=== PATIENT | female | born 1930 | race Caucasian/White ===

== ENCOUNTER 2017-01-06 10:43 | Inpatient (IN) | payer OTHER ==
[2017-01-06] VITALS (35 sets, daily range): BP systolic 76–145; BP diastolic 45–87; PULSE 96–178; TEMP 36.2–37.1; O2SAT 80–100; Ht 162.6 cm; Wt 63.4 kg
[~2017-01-06] VITALS: Ht 162.6 cm; Wt 63.4 kg
[2017-01-06] MEDS ORDERED: SODIUM CHLORIDE 0.9% 1000ML 1,000 ML IV STA (11:00)
[2017-01-06] MEDS ORDERED: CEFTRIAXONE SOD INJ 1 GM ADDVIAL IV STA (11:00)
--- NOTE | 2017-01-06 11:24 | DIAGNOSTIC IMAGING REPORT ---
CHEST ONE VIEW PORTABLE CLINICAL HISTORY: Evaluate Fever/Sepsis dyspnea COMPARISON STUDY: No previous studies for comparison. FINDINGS: Moderate cardiac megaly. Prior median sternotomy. Parenchymal infiltrate left base. Lungs otherwise appear clear. Central catheters. Vena cava. IMPRESSION: Infiltrate left base. Electronically signed by: Quentin Perera M.D. 01/06/2017 11:22 AM Dictated Date/Time: 01/06/2017 11:21 AM
[2017-01-06 11:47] LABS: HEMATOCRIT 25.1 % (37-47); MEAN CORPUSCULAR HEMOGLOBIN 33.3 pg (25-34); MEAN CORPUSCULAR HGB CONC 32.7 g/dl (32-36); MEAN PLATELET VOLUME 9.6 fL (7.4-10.4); PLATELET COUNT 276 K/uL (130-400); RED BLOOD COUNT 2.46 M/uL (4.2-5.4); WHITE BLOOD COUNT 18.57 K/uL (4.8-10.8)
[2017-01-06 11:58] LABS: INR 1.2 (0.9-1.1); PARTIAL THROMBOPLASTIN RATIO 1.4; PROTHROMBIN TIME (PATIENT) 12.7 SECONDS (9.0-12.0)
[2017-01-06 12:04] LABS: BUN/CREATININE RATIO 28.1 (10-20); CALCIUM 6.7 mg/dl (8.5-10.1); CREATININE 1.1 mg/dl (0.60-1.20); POTASSIUM 4.9 mmol/L (3.5-5.1)
[2017-01-06 12:09] LABS: ARTERIAL BLD GAS O2 SATURATION 92.9 % (90-95); ARTERIAL BLOOD GAS BASE EXCESS -2.8 mEq/L (-9-1.8); ARTERIAL BLOOD GAS HCO3 21 mmol/L (19-24); ARTERIAL BLOOD GAS PO2 81 mm/Hg (80-95); ARTERIAL BLOOD GAS pH 7.44 (7.35-7.45)
[2017-01-06 12:12] LABS: ALLEN TEST ROOM AIR (POS); O2 ADMINISTRATION POS
[2017-01-06 12:14] LABS: BASO % 0.2 %; BASO ABS # 0.03 K/uL (0-0.2); CKMB/CK RATIO 5.2 (0-3.0); COMPLETE YES; ECHINOCYTES 1+; EOS % 0.1 %; LYMPH % 5.1 %; LYMPH ABS # 0.94 K/uL (1.2-3.4); MONO % 4.2 %; NEUT % 84.4 %; THYROID STIMULATING HORMONE 5.77 uIu/ml (0.300-4.500); TOXIC GRANULATION 1+
[2017-01-06 12:31] LABS: MANUAL MICROSCOPIC REQUIRED? YES; URINE APPEARANCE SL CLOUDY (CLEAR); URINE COLOR YELLOW; URINE NITRITE NEG (NEG); URINE SPECIFIC GRAVITY >= 1.030 (1.000-1.030); UROBILINOGEN NEG (NEG)
--- NOTE | 2017-01-06 12:32 | DIAGNOSTIC IMAGING REPORT ---
CT SCAN OF THE BRAIN WITHOUT IV CONTRAST CLINICAL HISTORY: Generalized weakness. Unresponsive. COMPARISON STUDY: No priors. TECHNIQUE: Unenhanced axial CT scan of the brain is performed from the vertex to the skull base. CT DOSE: 823.94 mGycm FINDINGS: Brain parenchyma: There are age-related involutional changes noting moderate patchy subcortical and periventricular microangiopathic change. There is no hemorrhage, mass effect, or evidence of acute territorial ischemia by CT criteria. A chronic lacunar infarct is identified in the right thalamus. Davison-white matter is preserved. No extra-axial fluid collection is seen. Ventricles, sulci, cisterns: Prominent secondary to involutional change. Intracranial vasculature: There is an atherosclerotic calcification of the cavernous carotid and vertebral arteries. Calvarium: Unremarkable. Sinuses and mastoids: The visualized paranasal sinuses are clear. The mastoid air cells are well pneumatized. Orbits: The bony orbits are grossly intact. There are bilateral ocular lens implants. IMPRESSION: Senescent changes as above with no hemorrhage, mass effect, or evidence of acute territorial ischemia by CT criteria. Electronically signed by: Dany Llanos M.D. 01/06/2017 12:30 PM Dictated Date/Time: 01/06/2017 12:28 PM
[2017-01-06 12:37] LABS: REVIEW REQ? NO; URINE BILIRUBIN NEG (NEG)
[2017-01-06 12:46] LABS: URINE AMORPHOUS SEDIMENT PRESENT (NONE PRSENT)
[2017-01-06 12:47] LABS: URINE BACTERIA NEG (NEG); URINE RBC 0-4 /hpf (0-4)
[2017-01-06] MEDS ORDERED: PIPERACILLIN/TAZOBACTAM 4.5 GM/100ML D5W IV STA (13:04)
[2017-01-06] MEDS ORDERED: SODIUM CHLORIDE 0.9% 1000ML 1,000 ML IV SCH (13:15)
--- NOTE | 2017-01-06 14:07 | EMERGENCY ROOM VISIT NOTE ---
History Report prepared by Jennyfer: Sammi Estrella Under the Supervision of: Dr. Morgan Treviño D.O. 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 She comes from [facility] by EMS. The staff at [facility] believed she was in cardiac arrest. The EMS determined that she was not. The nurse reports that she was tachycardic. Her blood pressure was initially 70. She was given fluids en route. She was at [facility] recently for an arm infection. She states that she is having SOB. She denies having any abdominal pain. 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 A total of 10 systems reviewed and were otherwise negative. Past Medical & Surgical Medical Problems: (1) Asthma (2) CAD (coronary artery disease) (3) CVA (cerebral vascular accident) (4) GERD (gastroesophageal reflux disease) (5) Heart failure (6) Hyperlipidemia (7) Hypothyroidism (8) Inflammatory bowel disease (9) Persistent atrial fibrillation (10) Type 2 diabetes mellitus Surgical Problems: (1) History of arthroplasty of right knee (2) History of cataract surgery (3) S/P CABG x 3 (4) S/P cholecystectomy (5) S/P hysterectomy Family History Non contributory secondary to age. Social History Housing Status: [facility] Current/Historical Medications Scheduled Bumetanide (Bumex), 1 MG PO QAM Cholecalciferol (Vitamin D3), 1 TAB PO DAILY Ciprofloxacin Hcl (Cipro), 500 MG PO Q12H Ciprofloxacin In D5w (Cipro I.v.-In D5w), 400 MG IV Q12 Cyanocobalamin (Vitamin B-12), 500 MCG PO QAM Dabigatran Etexilate Mesylate (Pradaxa), 150 MG PO BID Dexlansoprazole (Dexilant), 1 TAB PO QAM Dimethicone & Incontinent Enedelia (Comfort Clean/Comfort Marielena), 1 DOSE TOP TID Ferrous Sulfate (Ferrous Sulfate), 1 TAB PO BID Gabapentin (Neurontin), 300 MG PO QAM Levothyroxine Sodium (Synthroid), 88 MCG PO DAILYBB Magnesium Oxide (Mag-Ox), 400 MG PO TID Mesalamine (Mesalamine Dr), 1 TAB PO QAM Methylprednisolone (Methylprednisolone), 1 TAB PO QAM Metoprolol Succinate (Metoprolol Succinate ER), 1 TAB PO QAM Potassium Chloride Microencaps (Potassium Chloride Er), 1 TAB PO QAM Potassium Ext Rel (Klor-Con), 20 MEQ PO QAM Vancomycin HCl in Sodium Chlor (Vancomycin Hydrochloride/ 1-0.9 gm/250Ml-%), 1 GM IV DAILY Miscellaneous Medications Heparin Sodium (Porcine) Lock (Heparin Lock Flush), 1 DOSE FLUSH Sodium Chloride Flush (Normal Saline Flush), 20 ML FLUSH Allergies Coded Allergies: No Known Allergies (Unverified , 01/06/17) Physical Exam Vital Signs Date Time Temp Pulse Resp B/P Pulse Ox O2 Delivery O2 Flow Rate FiO2 01/06/17 14:09 126 26 117/67 94 Nasal Cannula 2.0 01/06/17 14:01 124 24 99/50 94 Nasal Cannula 2.0 01/06/17 13:47 130 24 99/46 94 Nasal Cannula 2.0 01/06/17 13:41 119 24 99/62 95 Nasal Cannula 01/06/17 13:16 135 26 104/57 97 Nasal Cannula 2.0 01/06/17 13:06 120 26 85/60 99 Nasal Cannula 2.0 01/06/17 12:59 116 20 109/69 99 Nasal Cannula 2.0 01/06/17 12:42 130 26 90/51 95 Nasal Cannula 2.0 01/06/17 12:06 123 26 94/49 98 Nasal Cannula 2.0 01/06/17 11:53 132 24 103/70 98 Nasal Cannula 2.0 01/06/17 11:52 98 Nasal Cannula 2.0 01/06/17 11:44 116 24 80/58 95 Room Air 01/06/17 11:34 132 24 76/54 95 01/06/17 11:22 123 26 96/53 95 Room Air 01/06/17 10:54 119 01/06/17 10:53 36.6 136 24 114/68 94 Room Air 01/06/17 10:53 94 Room Air Physical Exam CONSTITUTIONAL/VITAL SIGNS: Reviewed / noted above. GENERAL: Non-toxic in appearance. Right IJ triple lumen catheter in place. INTEGUMENTARY: Warm, dry, and pale. HEAD: Normocephalic. EYES: without scleral icterus or trauma. ENT/OROPHARYNX: clear and moist. LYMPHADENOPATHY/NECK: Is supple without lymphadenopathy or meningismus. RESPIRATORY: Lungs clear and equal. CARDIOVASCULAR: Regular rate and rhythm. GI/ABDOMEN: Soft and nontender. No organomegaly or pulsatile mass. No rebound or guarding. Normal bowel sounds. EXTREMITIES: Sutures in place on left elbow with some edema and ecchymosis. Old bruising noted. Peripheral edema noted. BACK: No CVA tenderness. NEUROLOGICAL: She responds to verbal stimulus and answers basic questions appropriately. Generalized weakness. No obvious focal deficit. PSYCHIATRIC: normal affect. MUSCULOSKELETAL: Normally developed with good muscle tone. Medical Decision & Procedures ER Provider Diagnostic Interpretation: X ray results and stated below per my interpretation and radiology interpretation. Radiology results as stated below per my review and radiologist interpretation: CHEST ONE VIEW PORTABLE CLINICAL HISTORY: Evaluate Fever/Sepsis dyspnea COMPARISON STUDY: No previous studies for comparison. FINDINGS: Moderate cardiac megaly. Prior median sternotomy. Parenchymal infiltrate left base. Lungs otherwise appear clear. Central catheters. Vena cava. IMPRESSION: Infiltrate left base. Electronically signed by: Quentin Perera M.D. 01/06/2017 11:22 AM Dictated Date/Time: 01/06/2017 11:[address] SCAN OF THE BRAIN WITHOUT IV CONTRAST CLINICAL HISTORY: Generalized weakness. Unresponsive. COMPARISON STUDY: No priors. TECHNIQUE: Unenhanced axial CT scan of the brain is performed from the vertex to the skull base. CT DOSE: 823.94 mGycm FINDINGS: Brain parenchyma: There are age-related involutional changes noting moderate patchy subcortical and periventricular microangiopathic change. There is no hemorrhage, mass effect, or evidence of acute territorial ischemia by CT criteria. A chronic lacunar infarct is identified in the right thalamus. Davison-white matter is preserved. No extra-axial fluid collection is seen. Ventricles, sulci, cisterns: Prominent secondary to involutional change. Intracranial vasculature: There is an atherosclerotic calcification of the cavernous carotid and vertebral arteries. Calvarium: Unremarkable. Sinuses and mastoids: The visualized paranasal sinuses are clear. The mastoid air cells are well pneumatized. Orbits: The bony orbits are grossly intact. There are bilateral ocular lens implants. IMPRESSION: Senescent changes as above with no hemorrhage, mass effect, or evidence of acute territorial ischemia by CT criteria. Electronically signed by: Dany Llanos M.D. 01/06/2017 12:30 PM Dictated Date/Time: 01/06/2017 12:28 PM Laboratory Results 01/06/17 11:30 Red Blood Count 2.46, Mean Corpuscular Volume 102.0, Mean Corpuscular Hemoglobin 33.3, Mean Corpuscular Hemoglobin Concent 32.7, Mean Platelet Volume 9.6, Neutrophils (%) (Auto) 84.4, Lymphocytes (%) (Auto) 5.1, Monocytes (%) ( Auto) 4.2, Eosinophils (%) (Auto) 0.1, Basophils (%) (Auto) 0.2, Neutrophils # ( Auto) 15.69, Lymphocytes # (Auto) 0.94, Monocytes # (Auto) 0.78, Eosinophils # ( Auto) 0.01, Basophils # (Auto) 0.03 01/06/17 11:30 Test 01/06/17 11:30 01/06/17 11:40 01/06/17 11:52 01/06/17 12:15 White Blood Count 18.57 K/uL (4.8-10.8) Red Blood Count 2.46 M/uL (4.2-5.4) Hemoglobin 8.2 g/dL (12.0-16.0) Hematocrit 25.1 % (37-47) Mean Corpuscular Volume 102.0 fL (80-100) Mean Corpuscular Hemoglobin 33.3 pg (25-34) Mean Corpuscular Hemoglobin Concent 32.7 g/dl (32-36) Platelet Count 276 K/uL (130-400) Mean Platelet Volume 9.6 fL (7.4-10.4) Neutrophils (%) (Auto) 84.4 % Lymphocytes (%) (Auto) 5.1 % Monocytes (%) (Auto) 4.2 % Eosinophils (%) (Auto) 0.1 % Basophils (%) (Auto) 0.2 % Neutrophils # (Auto) 15.69 K/uL (1.4-6.5) Lymphocytes # (Auto) 0.94 K/uL (1.2-3.4) Monocytes # (Auto) 0.78 K/uL (0.11-0.59) Eosinophils # (Auto) 0.01 K/uL (0-0.5) Basophils # (Auto) 0.03 K/uL (0-0.2) RDW Standard Deviation 58.4 fL (36.4-46.3) RDW Coefficient of Variation 15.5 % (11.5-14.5) Immature Granulocyte % (Auto) 6.0 % Immature Granulocyte # (Auto) 1.12 K/uL (0.00-0.02) Toxic Granulation 1+ Echinocytes 1+ Prothrombin Time 12.7 SECONDS (9.0-12.0) Prothromb Time International Ratio 1.2 (0.9-1.1) Activated Partial Thromboplast Time 35.2 SECONDS (21.0-31.0) Partial Thromboplastin Ratio 1.4 Anion Gap 15.0 mmol/L (3-11) Est Creatinine Clear Calc Drug Dose 29.8 ml/min Estimated GFR () 52.3 Estimated GFR (Non- 45.1 BUN/Creatinine Ratio 28.1 (10-20) Calcium Level 6.7 mg/dl (8.5-10.1) Total Bilirubin 0.4 mg/dl (0.2-1) Direct Bilirubin 0.1 mg/dl (0-0.2) Aspartate Amino Transf (AST/SGOT) 86 U/L (15-37) Alanine Aminotransferase (ALT/SGPT) 37 U/L (12-78) Alkaline Phosphatase 126 U/L (45-117) Ammonia 28.0 umol/L (11-32) Total Creatine Kinase 27 U/L (26-192) Creatine Kinase MB 1.4 ng/ml (0.5-3.6) Creatine Kinase MB Ratio 5.2 (0-3.0) Troponin I 0.034 ng/ml (0-0.045) Total Protein 3.9 gm/dl (6.4-8.2) Albumin 1.4 gm/dl (3.4-5.0) Lipase 166 U/L (73-393) Thyroid Stimulating Hormone (TSH) 5.770 uIu/ml (0.300-4.500) Bedside Lactic Acid Venous 7.87 mmol/L (0.90-1.70) Arterial Blood pH 7.44 (7.35-7.45) Arterial Blood Partial Pressure CO2 32 mmHg (35-46) Arterial Blood Partial Pressure O2 81 mm/Hg (80-95) Arterial Blood HCO3 21 mmol/L (19-24) Arterial Blood Oxygen Saturation 92.9 % (90-95) Arterial Blood Base Excess -2.8 mEq/L (-9-1.8) Arterial Blood Gas Delivery POS Baldo Test ROOM AIR (POS) Urine Color YELLOW Urine Appearance SL CLOUDY (CLEAR) Urine pH 5.0 (4.5-7.5) Urine Specific [place] >= 1.030 (1.000-1.030) Urine Protein 1+ (NEG) Urine Glucose (UA) NEG (NEG) Urine Ketones TRACE (NEG) Urine Occult Blood NEG (NEG) Urine Nitrite NEG (NEG) Urine Bilirubin NEG (NEG) Urine Urobilinogen NEG (NEG) Urine Leukocyte Esterase NEG (NEG) Urine RBC 0-4 /hpf (0-4) Urine WBC 1-5 /hpf (0-5) Urine Epithelial Cells 0-5 /lpf (0-5) Urine Amorphous Sediment PRESENT (NONE PRSENT) Urine Bacteria NEG (NEG) Urine Yeast BUD W/ HYPHAE (NONE PRSENT) Laboratory results as stated above per my review. Medications Administered Medications (Trade) Dose Ordered Sig/Nanda Route Start Time Stop Time Status Last Admin Dose Admin Sodium Chloride (Nss 1000ml) 1,000 ml @ 999 mls/hr Q1H1M STAT IV 01/06/17 11:00 01/06/17 12:00 DC 01/06/17 11:00 999 MLS/HR Ceftriaxone Sodium (Rocephin Inj) 1 gm NOW STAT IV 01/06/17 11:00 01/06/17 11:05 DC 01/06/17 11:57 1 GM Piperacillin Sod/ Tazobactam Sod (Zosyn Iv) 4.5 gm NOW STAT IV 01/06/17 13:04 01/06/17 13:10 DC 01/06/17 13:18 4.5 GM ECG Indication: altered mental status Rate (beats per minute): 135 Rhythm: atrial fibrillation Findings: no ectopy, other (no acute injury) ED Course 1052: Previous medical records were reviewed. The patient was evaluated in room B1. A complete history and physical examination was performed. 1100: Rocephin Inj 1 gm IV, NSS 1000 ml @ 999 mls/hr IV. 1257: I discussed the patient's case with Dr. Upton, [facility]. He will evaluate the patient for further management. 1302: On reevaluation, the patient is resting comfortably. I discussed the results and findings with her. She verbalized agreement of the treatment plan. I spoke with Dr. Upton of the [facility]. The patient will be evaluated for further management and care. Medical Decision Differential includes acute coronary syndrome, myocardial infarction, CVA, TIA, anemia, infection, pneumonia, UTI, pyelonephritis, poor nutrition, dehydration, electrolyte disturbance,hypoglycemia. This is a 89-year-old female who presents to the ED with a chief complaint of altered mental status. The patient is currently at [facility]. She was at [facility] for a left elbow infection. She had a bursectomy last Tuesday. She was discharged couple of days ago from [facility]. While she was there, she had cultures from the elbow that showed Acinetobacter and was sensitive to everything. She was discharged to receive Cipro IV daily. She has a right IJ triple lumen catheter in place for this. The patient, on my evaluation, is awake but drowsy. She answers questions appropriately. She reports her main complaint is shortness of breath. The patient initially presented without family being present. There is no information here about the patient. I eventually got paperwork from [facility] about her recent hospitalization. The patient does not know all the details of her recent admission there. The patient's exam reveals that she is pale. Her lungs were clear. Left elbow is edematous and ecchymotic with sutures in place. The patient has some pedal edema. She has an ecchymotic/skin tear areas as well in her lower extremities. She does have a history of A. fib. Her current twelve- lead EKG shows atrial fibrillation with RVR. She is afebrile. Blood pressure is 80-90 systolic. The patient received normal saline 600 mL bolus by EMS. Test results reveal a white blood cell count of 18.5. Hemoglobin is 8.2. Urine did not show infection. The BUN is 31. Lactate level was 7.7. TSH was slightly elevated at 5.77. Troponin is negative. Chest x-ray reveals a left base infiltrate. CT scan of the brain did not show acute process. An ABG reveals a normal acid base status with normal oxygenation and ventilation on room air. The patient was given an additional 1 L normal saline IV making the initial fluid bolus equal to or greater than 30 mL/kg (52kg) as per initial sepsis fluid goals. She was given IV Rocephin awaiting test results. She was then given IV Zosyn. I spoke with the hospitalist about the patient. The patient will be seen for further inpatient evaluation and care. The patient became more alert during her ED stay. She has been type and screened. At this time, Dr. Upton is seeing the patient. During the admission process, the patient had a bloody BM. Consults Time Called: 1252 Consulting Physician: Dr. Upton [facility] Hospitalist Returned Call: [phone] Discussed the patient's case. The patient will be evaluated for further treatment and disposition. Impression Primary Impression: Pneumonia Additional Impressions: Cellulitis of upper extremity Anemia Atrial fibrillation with RVR Dehydration GIB (gastrointestinal bleeding) Anticoagulant long-term use Critical Care I have personally spent 35 minutes of critical care time in the direct management of this patient. This includes bedside care, interpretation of diagnostic studies, and testing, discussion with consultants, patient, and family members, and other required patient management activities. Scribe Attestation The scribe's documentation has been prepared under my direction and personally reviewed by me in its entirety. I confirm that the note above accurately reflects all work, treatment, procedures, and medical decision making performed by me. Departure Information Dispostion Being Evaluated By Hospitalist Referrals No Doctor, Assigned (PCP) Patient Instructions [facility] Problem Qualifiers
[2017-01-06] MEDS ORDERED: [UNRECOGNIZED DRUG - CODE] TOP (14:15)
[2017-01-06] MEDS ORDERED: DABI150C PO (14:15)
[2017-01-06] MEDS ORDERED: HEPA10IN13 FLUSH (14:15)
[2017-01-06] MEDS ORDERED: MESA800T2 PO (14:15)
[2017-01-06] MEDS ORDERED: VANC1INJ IV (14:15)
[2017-01-06] MEDS ORDERED: GABA-113 PO (14:15)
[2017-01-06] MEDS ORDERED: CHOL1000 PO (14:15)
[2017-01-06] MEDS ORDERED: CIPR1INJ3 IV (14:15)
[2017-01-06] MEDS ORDERED: LEVO88TA PO (14:15)
[2017-01-06] MEDS ORDERED: SODI0.9I55 FLUSH (14:15)
[2017-01-06] MEDS ORDERED: POTA20TA16 PO (14:15)
[2017-01-06] MEDS ORDERED: MDR4 PO (14:15)
[2017-01-06] MEDS ORDERED: DEXL60CA4 PO (14:15)
[2017-01-06] MEDS ORDERED: POTA20TA13 PO (14:15)
[2017-01-06] MEDS ORDERED: FERR1TAB62 PO (14:15)
[2017-01-06] MEDS ORDERED: TPRSR/25 PO (14:15)
[2017-01-06] MEDS ORDERED: CYAN500T PO (14:15)
[2017-01-06] MEDS ORDERED: CIPR-255 PO (14:15)
[2017-01-06] MEDS ORDERED: BUME1TAB PO (14:15)
[2017-01-06] MEDS ORDERED: MAGN400T6 PO (14:15)
[2017-01-06] MEDS ORDERED: HYDROCORTISONE IV 100 MG in SYRINGE 0 ML IV ONE (14:30)
[2017-01-06] MEDS ORDERED: NOREPINEPHRINE BIT INJ 8 MG in DEXTROSE 5% 500ML 500 ML IV PRN (14:45)
--- NOTE | 2017-01-06 15:03 | History and Physical ---
History & Physical Date & Time of Service: Jan 06, 2017 @ 13:00 . Chief Complaint: weakness . Primary Care Physician: Dr. Lara . History of Present Illness Source: patient, family, hospital records 86 YO female followed by Dr. Lara for primary care. 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 Has had multiple skin tears attributed to chronic steroid therapy with associated episodes of cellulitis. Hospitalized at [facility] on 12/28/16 for cellulitis and septic olecranon bursitis LUE. Olecranon bursectomy performed 12/31/[address] Callahan. Cultures from surgical procedure grew: Acinetobacter baumannii sensitive to 3rd generation cephalosporins, quinolones, aminoglycosides, carbapenems coag neg Staph sensitive to vancomycin, daptomycin, linezolid; resistant to quinolones, erythromycin, oxacillin, clindamycin Strep sp sensitive to vancomycin, penicillin, tetracycline; resistant to clindamycin, quinolones, erythromycin Transferred to [facility] for IV meds (ciprofloxacin and vancomycin) and PT on 01/03/17. [place] fairly well on 01/04. Daughter thought that she looked tired last evening. This morning she was found be be very weak and minimally responsive. Systolic BP was reportedly 70 when paramedics arrived. Fluid resuscitation was initiated by EMS. She was brought to the ED for evaluation. Patient denies fever, but has been chilled. [place] dyspneic this morning. She has a nonproductive cough. No chest pain. No nausea or vomiting. Daughter noted some abdominal bloating last night. Patient denies abdominal pain. Had a loose stool this morning without apparent melena or hematochezia. Had Martini catheter in [facility] that was discontinued by discharge. No dysuria or hematuria. Right IJ catheter placed at [facility] which was maintained for IV antibiotic therapy at [facility]. BP's fluctuated in ED, but improved with fluid resuscitation. Hydrocortisone 100 mg IV administered in ED in light of chronic steroid therapy. 2 episodes of hematochezia in ED- fresh blood with some clots, about 100 mls each time. History of diverticulosis, but no history of diverticular bleed. History of diverticulitis without apparent recent flares. . 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 Social History Smoking Status: Never Smoker Alcohol Use: none Housing status: penitentiary (skilled care at [facility]) Allergies Coded Allergies: No Known Allergies (Unverified , 01/06/17) Home Medications Scheduled Bumetanide (Bumex), 1 MG PO QAM Cholecalciferol (Vitamin D3), 1 TAB PO DAILY Ciprofloxacin Hcl (Cipro), 500 MG PO Q12H Ciprofloxacin In D5w (Cipro I.v.-In D5w), 400 MG IV Q12 Cyanocobalamin (Vitamin B-12), 500 MCG PO QAM Dabigatran Etexilate Mesylate (Pradaxa), 150 MG PO BID Dexlansoprazole (Dexilant), 1 TAB PO QAM Dimethicone & Incontinent Enedelia (Comfort Clean/Comfort Marielena), 1 DOSE TOP TID Ferrous Sulfate (Ferrous Sulfate), 1 TAB PO BID Gabapentin (Neurontin), 300 MG PO QAM Levothyroxine Sodium (Synthroid), 88 MCG PO DAILYBB Magnesium Oxide (Mag-Ox), 400 MG PO TID Mesalamine (Mesalamine Dr), 1 TAB PO QAM Methylprednisolone (Methylprednisolone), 1 TAB PO QAM Metoprolol Succinate (Metoprolol Succinate ER), 1 TAB PO QAM Potassium Chloride Microencaps (Potassium Chloride Er), 1 TAB PO QAM Potassium Ext Rel (Klor-Con), 20 MEQ PO QAM Vancomycin HCl in Sodium Chlor (Vancomycin Hydrochloride/ 1-0.9 gm/250Ml-%), 1 GM IV DAILY Miscellaneous Medications Heparin Sodium (Porcine) Lock (Heparin Lock Flush), 1 DOSE FLUSH Sodium Chloride Flush (Normal Saline Flush), 20 ML FLUSH Review of Systems As noted above in HPI. Review otherwise limited due to acute illness. . Physical Exam Vital Signs Date Time Temp Pulse Resp B/P Pulse Ox O2 Delivery O2 Flow Rate FiO2 01/06/17 14:59 124 24 95/66 98 Nasal Cannula 3.0 01/06/17 14:22 115 26 103/64 94 Nasal Cannula 2.0 01/06/17 14:09 126 26 117/67 94 Nasal Cannula 2.0 01/06/17 14:01 124 24 99/50 94 Nasal Cannula 2.0 01/06/17 13:47 130 24 99/46 94 Nasal Cannula 2.0 01/06/17 13:41 119 24 99/62 95 Nasal Cannula 01/06/17 13:16 135 26 104/57 97 Nasal Cannula 2.0 01/06/17 13:06 120 26 85/60 99 Nasal Cannula 2.0 01/06/17 12:59 116 20 109/69 99 Nasal Cannula 2.0 01/06/17 12:42 130 26 90/51 95 Nasal Cannula 2.0 01/06/17 12:06 123 26 94/49 98 Nasal Cannula 2.0 01/06/17 11:53 132 24 103/70 98 Nasal Cannula 2.0 01/06/17 11:52 98 Nasal Cannula 2.0 01/06/17 11:44 116 24 80/58 95 Room Air 01/06/17 11:34 132 24 76/54 95 01/06/17 11:22 123 26 96/53 95 Room Air 01/06/17 10:54 119 01/06/17 10:53 36.6 136 24 114/68 94 Room Air 01/06/17 10:53 94 Room Air General Appearance: + severe distress, + thin Head: normocephalic, atraumatic Eyes: normal inspection, PERRL, EOMI, sclerae normal, + pertinent finding ( conjunctivae pale) ENT: normal ENT inspection, hearing grossly normal, + pertinent finding (upper dentures) Neck: supple, no adenopathy, thyroid normal, trachea midline, + JVD, + pertinent finding (right IJ catheter) Respiratory/Chest: no respiratory distress, no accessory muscle use, + pertinent finding (few basilar rales) Cardiovascular: + pertinent finding (irregular, tachycardic, II/ systolic murmur at base, II/ systolic murmur at apex, no gallop appreciated) Abdomen/GI: + pertinent finding (quiet bowel sounds, slightly distended, mild right-sided tenderness without rebound or guarding, no palpable masses; fresh blood per rectum) Extremities/Musculoskelatal: + pertinent finding (2+ pretibial edema; no calf tenderness; pedal pulses diminished; capillary refill toes about 1 sec) Neurologic/Psych: passenger train braker II-XII nml as tested (PERRL, EOMI, no facial palsy), + disoriented (mild confusion), + pertinent finding (genearlized weakness; plantar reflexes downgoing) Skin: + pertinent finding (cool extremities; shallow skin ulcers; numerous ecchymoses and purpura; incision left elbow with sutures) Lymphatic: + pertinent finding (no cervical adenopathy) Diagnostics Laboratory Results Results Past 24 Hours Test 01/06/17 11:30 01/06/17 11:40 01/06/17 11:52 01/06/17 12:15 Range/Units White Blood Count 18.57 4.8-10.8 K/uL Red Blood Count 2.46 4.2-5.4 M/uL Hemoglobin 8.2 12.0-16.0 g/dL Hematocrit 25.1 37-47 % Mean Corpuscular Volume 102.0 80-100 fL Mean Corpuscular Hemoglobin 33.3 25-34 pg Mean Corpuscular Hemoglobin Concent 32.7 32-36 g/dl Platelet Count 276 130-400 K/uL Mean Platelet Volume 9.6 7.4-10.4 fL Neutrophils (%) (Auto) 84.4 % Lymphocytes (%) (Auto) 5.1 % Monocytes (%) (Auto) 4.2 % Eosinophils (%) (Auto) 0.1 % Basophils (%) (Auto) 0.2 % Neutrophils # (Auto) 15.69 1.4-6.5 K/uL Lymphocytes # (Auto) 0.94 1.2-3.4 K/uL Monocytes # (Auto) 0.78 0.11-0.59 K/uL Eosinophils # (Auto) 0.01 0-0.5 K/uL Basophils # (Auto) 0.03 0-0.2 K/uL RDW Standard Deviation 58.4 36.4-46.3 fL RDW Coefficient of Variation 15.5 11.5-14.5 % Immature Granulocyte % (Auto) 6.0 % Immature Granulocyte # (Auto) 1.12 0.00-0.02 K/uL Toxic Granulation 1+ Echinocytes 1+ Prothrombin Time 12.7 9.0-12.0 SECONDS Prothromb Time International Ratio 1.2 0.9-1.1 Activated Partial Thromboplast Time 35.2 21.0-31.0 SECONDS Partial Thromboplastin Ratio 1.4 Sodium Level 134 136-145 mmol/L Potassium Level 4.9 3.5-5.1 mmol/L Chloride Level 99 98-107 mmol/L Carbon Dioxide Level 20 21-32 mmol/L Anion Gap 15.0 3-11 mmol/L Blood Urea Nitrogen 31 7-18 mg/dl Creatinine 1.10 0.60-1.20 mg/dl Est Creatinine Clear Calc Drug Dose 29.8 ml/min Estimated GFR () 52.3 Estimated GFR (Non- 45.1 BUN/Creatinine Ratio 28.1 10-20 Random Glucose 252 70-99 mg/dl Calcium Level 6.7 8.5-10.1 mg/dl Total Bilirubin 0.4 0.2-1 mg/dl Direct Bilirubin 0.1 0-0.2 mg/dl Aspartate Amino Transf (AST/SGOT) 86 15-37 U/L Alanine Aminotransferase (ALT/SGPT) 37 12-78 U/L Alkaline Phosphatase 126 45-117 U/L Ammonia 28.0 11-32 umol/L Total Creatine Kinase 27 26-192 U/L Creatine Kinase MB 1.4 0.5-3.6 ng/ml Creatine Kinase MB Ratio 5.2 0-3.0 Troponin I 0.034 0-0.045 ng/ml Total Protein 3.9 6.4-8.2 gm/dl Albumin 1.4 3.4-5.0 gm/dl Lipase 166 73-393 U/L Thyroid Stimulating Hormone (TSH) 5.770 0.300-4.500 uIu/ml Bedside Lactic Acid Venous 7.87 0.90-1.70 mmol/L Arterial Blood pH 7.44 7.35-7.45 Arterial Blood Partial Pressure CO2 32 35-46 mmHg Arterial Blood Partial Pressure O2 81 80-95 mm/Hg Arterial Blood HCO3 21 19-24 mmol/L Arterial Blood Oxygen Saturation 92.9 90-95 % Arterial Blood Base Excess -2.8 -9-1.8 mEq/L Arterial Blood Gas Delivery POS Baldo Test ROOM AIR POS Urine Color YELLOW Urine Appearance SL CLOUDY CLEAR Urine pH 5.0 4.5-7.5 Urine Specific [employer] >= 1.030 1.000-1.030 Urine Protein 1+ NEG Urine Glucose (UA) NEG NEG Urine Ketones TRACE NEG Urine Occult Blood NEG NEG Urine Nitrite NEG NEG Urine Bilirubin NEG NEG Urine Urobilinogen NEG NEG Urine Leukocyte Esterase NEG NEG Urine RBC 0-4 0-4 /hpf Urine WBC 1-5 0-5 /hpf Urine Epithelial Cells 0-5 0-5 /lpf Urine Amorphous Sediment PRESENT NONE PRSENT Urine Bacteria NEG NEG Urine Yeast BUD W/ HYPHAE NONE PRSENT Microbiology Results 01/06/17 Blood Culture, Received Pending 01/06/17 Blood Culture, Received Pending Diagnostic Radiology CHEST ONE VIEW PORTABLE FINDINGS: Moderate cardiac megaly. Prior median sternotomy. Parenchymal infiltrate left base. Lungs otherwise appear clear. Central catheters. Vena cava. IMPRESSION: Infiltrate left base. Electronically signed by: Quentin Perera M.D. 01/06/2017 11:[address] SCAN OF THE BRAIN WITHOUT IV CONTRAST IMPRESSION: Senescent changes as above with no hemorrhage, mass effect, or evidence of acute territorial ischemia by CT criteria. Electronically signed by: Dany Llanos M.D. 01/06/2017 12:30 PM . EKG EKG performed at 10:52 reviewed and demonstrated AF at 135 / minute, possible age-indeterminate inferior infarct, possible age-indeterminate anterior infarct , inferolateral T-wave inversion. . Impression Assessment and Plan SEVERE SEPSIS Presented with weakness, altered mental status, hypotension. Meets criteria for severe sepsis- leukocytosis, hyperlactemia, hypotension. Possible sources of sepsis: left olecranon bursitis cellulitis line sepsis pneumonia GI source- ischemic bowel, bowel infarction, C diff Has been receiving ciprofloxacin and IV vancomycin for Acinetobacter baumannii, coag neg Staph, and Strep sp. Received IV ceftriaxone and piperacillin / tazobactam in ED after blood cultures obtained. Will discuss broad spectrum antibiotic therapy with CCM team. Blood pressure improved with fluid resuscitation- received goal of 30 mls/kg. Serum lactate 7- follow. IV hydrocortisone administered in ED due to chronic steroid therapy; continue IV steroids until hemodynamically stable. Norepinephrine infusion per protocol if MAP < 65. Check CT of abdomen and pelvis when able to assess for intra-abdominal source of sepsis. ALTERED MENTAL STATUS Probable encephalopathy secondary to sepsis. Head CT negative. Improved with fluid resuscitation. LOWER GI BLEED Lower GI bleeding first noted in ED. On dabigatran for chronic AF and history of embolic stroke. At risk for diverticular bleed, ischemic colitis/bowel infarction, C diff colitis. Hold dabigatran and other anticoagulants. Hgb 8.2 - will certainly fall in light of fluid resuscitation and active GI bleeding. Type and cross pRBCs- transfuse 1 unit and follow H/H and hemodynamics. Consider Praxbind if pt continues to have significant GI bleeding. GI consulted. CORONARY ARTERY DISEASE Denies chest pain. Monitor cardiac status. Need to hold metoprolol; resume when hemodynamic status permits. CHRONIC ATRIAL FIBRILLATION WITH RAPID VENTRICULAR RESPONSE Need to hold metoprolol; resume when hemodynamic status permits. Hold dabigatran and other anticoagulants. Consider digoxin for rate control if rapid ventricular response persists. CHF History of CHF. Recent echo showed LVEF of 50%. Probable chronic mixed left ventricular diastolic + systolic failure. Appears to be compensated, but at risk for decompensation in setting of sepsis, fluid resuscitation, rapid AF, anemia. Hold diuretics due to sepsis / hypotension Follow clinical status and x-rays. INFLAMMATORY ARTHRITIS ON CHRONIC STEROID THERAPY On methylprednisolone for inflammatory arthritis (? RA). Hemodynamically unstable. IV hydrocortisone 100 mg IV administered in ED. Continue IV steroids until hemodynamics improved, then transition to usual maintenance therapy as tolerated. DM / HYPERGLYCEMIA History DM type 2. Random blood sugar = 252. Glycemic management per protocol. Check Hgb A1C. HYPOTHYROIDISM TSH 5.7. NPO due to acute illness. Resume levothyroxine therapy when able to take PO meds. ANEMIA Chronic anemia, probably multifactorial + acute blood loss anemia. Transfuse to maintain adequate H/H; Hgb goal of 8 would be reasonable given acute illness and comorbidities. CHRONIC EDEMA History of chronic lymphedema. Nutritional status (alb = 1.4) and CHF contributing factors. VTE PROPHYLAXIS On dabigatran for chronic AF. Must hold anticoagulants due to acute GI bleed. SCD's with caution in light of skin issues. Ambulate when able. RESUSCITATION STATUS Discussed with patient and her daughter. She does not have a living will. She would like resuscitation attempted in the event of a cardiopulmonary arrest if there is a reasonable chance of a meaningful recovery, but does not want prolonged extraordinary measures if prognosis is poor. Therefore, code status = "Level 1" (full resuscitation). DISPOSITION Admit to ICU. Discharge disposition to be determined- expect need for skilled care or rehab. Medical follow-up with Dr. Lara. Daughter at bedside in ED and given updates on status and plan. . VTE Prophylaxis VTE Risk Assessment Done? Y/N: Yes Risk Level: Moderate Given or contraindicated: SCD's Note Total Time: Critical Care 30 - 74 minutes (at least 60 minutes critical care provided in ED) Additional Copies To Pj Lara D.O.
[2017-01-06] MEDS ORDERED: OPTIRAY 320 IV PRN (16:00)
--- NOTE | 2017-01-06 16:08 | Progress Note ---
Progress Note Post Crystalloid Evaluation Date: Jan 06, 2017 Time: 14:50 Subjective Reassessed in ED before transfer to ICU. Blood pressures improved with fluid resuscitation. Remains in AF with rapid rate. A bit somnolent. Denies CP, SOB, abdominal pain, nausea, vomiting. . Physical Exam Vital Signs: Vital Signs Date Time Temp Pulse Resp B/P Pulse Ox O2 Delivery O2 Flow Rate FiO2 01/06/17 14:59 124 24 95/66 98 Nasal Cannula 3.0 01/06/17 10:53 36.6 Lungs: no respiratory distress, no accessory muscle use, + rales (few basilar) Heart: + JVD, + systolic murmur, + irregularly irregular (tachy) Peripheral Pulse: Weak (pedal pulses diminished) Capillary Refill: Delayed (2 seconds or longer) (2 seconds) Skin: Pale Assessment & Plan Presence of: Severe Sepsis Severe sepsis with improvement of hemodynamics after fluid resuscitation of ~ 2500 mls (EMS + ED). Blood cultures obtained. Broad-spectrum antibiotics administered. IV hydrocortisone administered. Serum lactate elevated- follow. No need for pressors at this time. Persistent lower GI bleeding. GI team consulted. Ordered first unit of pRBC's. Follow H/H. Daughter given update. .
--- NOTE | 2017-01-06 16:11 | Gastrointestinal Consultation ---
Gastrointestinal Consultation Date of Consultation: Jan 06, 2017 Attending Physician: Gio Upton Consulting Physician: Uriah Albrecht Reason for Consultation: Lower GI bleeding History of Present Illness Patient is a 86 year old female currently going to be admitted for sepsis, seen in consultation for lower GI bleeding. Due to pt's current clinical condition, I cannot obtain much history from her, most of the data obtained from outpt records, admission H&P, and her daughter. Pt is a resident of [place], found to be unresponsive by staff there and thought to be in cardiac arrest though this was ruled out by EMS staff, troponin negative. CT head ruled out infarct, no other acute processes. She was noted to be tachycardic, HR 120s-130s , BP soft at one point down to 70s/50s. She does have hx of Afib on Pradaxa. Currently in RVR. She also had hx of CVA, CAD s/p CABG x 3. Labs showed WBC of 18K, H/H of 8.2/25.1. PT/INR of 12.7/1.2, Anion Gap of 15. BUN/Cr 31/1.1. She was just discharged from [facility] for L elbow infection, s/p bursectomy. Cultures from elbow wound grew Acinetobacter, and she had been receiving Vancomycin, Cipro via triple lumen R IJ for the infection. She had been c/o SOB , CXR showed L base infiltrate. In middle of assessment she started having rectal bleeding - stools maroon colored. She has hx of UC, usually followed by [facility] and on Mesalamine 800mg daily for this. Her mother has hx of colon ca. Last colonoscopy eval was >5 yrs ago. Per pt's daughter, she always had diarrhea, but never had any rectal bleeding hx. Past Medical/Surgical History Medical Problems: (1) Anemia Status: Acute (2) Anticoagulant long-term use Status: Acute (3) Atrial fibrillation with RVR Status: Acute (4) Cellulitis of upper extremity Status: Acute (5) Dehydration Status: Acute (6) GIB (gastrointestinal bleeding) Status: Acute (7) Pneumonia Status: Acute Past Medical History: See above, also GERD, hyperlipidemia, hypothyroidism, DM II Past Surgical History: R knee arthroplasty, Cataract surgery, CABG x 3, cholecystectomy, hysterectomy Family History Mother - colon ca Social History Smoking Status: Unknown if Ever Smoked Alcohol Use: none Drug Use: none Housing Status: detention Allergies Coded Allergies: No Known Allergies (Unverified , 01/06/17) Current Medications Home Meds and Scripts Medications Dose Route/Sig Max Daily Dose Days Date Category Dose Instructions Comfort Clean/Comfort Marielena (Dimethicone & Incontinent Enedelia) 1 Mis Mis 1 Dose TOP TID 01/06/17 Reported Vitamin D3 (Cholecalciferol) 1,000 Unit Tab 1 Tab PO DAILY 01/06/17 Reported Vitamin B-12 (Cyanocobalamin) 500 Mcg Tab 500 Mcg PO QAM 01/06/17 Reported Vancomycin Hydrochloride/ 1-0.9 gm/250Ml-% (Vancomycin HCl in Sodium Chlor) 1 Inj Inj 1 Gm IV DAILY 01/06/17 Reported STARTED 01-05-17. INFUSE OVER 90MIN DAILY FOR 8DAYS. Pradaxa (Dabigatran Etexilate Mesylate) 150 Mg Cap 150 Mg PO BID 01/06/17 Reported [id number] Potassium Chloride Er (Potassium Chloride Microencaps) 20 Meq Tab 1 Tab PO QAM 01/06/17 Reported Klor-Con (Potassium Chloride) 20 Meq Tabcr 20 Meq PO QAM 01/06/17 Reported Metoprolol Succinate ER (Metoprolol Succinate) 25 Mg Tabcr 1 Tab PO QAM 01/06/17 Reported 0900 Methylprednisolone 4 Mg Tab 1 Tab PO QAM 01/06/[address] (Mesalamine) 800 Mg Tab 1 Tab PO QAM 01/06/17 Reported 0900 Mag-Ox (Magnesium Oxide) 400 Mg Tab 400 Mg PO TID 01/06/17 Reported [id number] Synthroid (Levothyroxine Sodium) 88 Mcg Tab 88 Mcg PO DAILYBB 01/06/17 Reported 0630 Normal Saline Flush (Sodium Chloride Flush) 0.9 % Inj 20 Ml FLUSH 01/06/17 Reported [id number] Heparin Lock Flush (Heparin Sodium (Porcine) Lock) 10 Unit/Ml Inj 1 Dose FLUSH 01/06/17 Reported [id number] Neurontin (Gabapentin) 300 Mg Cap 300 Mg PO QAM 01/06/17 Reported 0900 Ferrous Sulfate 325 Mg Tab 1 Tab PO BID 01/06/17 Reported [id number] Dexilant (Dexlansoprazole) 60 Mg Cap 1 Tab PO QAM 01/06/17 Reported 0900 Cipro (Ciprofloxacin Hcl) 500 Mg Tab 500 Mg PO Q12H 01/06/17 Reported Cipro I.v.-In D5w (Ciprofloxacin In D5w) 1 Inj Inj 400 Mg IV Q12 01/06/17 Reported Bumex (Bumetanide) 1 Mg Tab 1 Mg PO QAM 01/06/17 Reported 0900 Review of Systems Constitutional: No chills, No fever Respiratory: + shortness of breath Cardiac: No chest pain Abdomen: + GI bleeding, + nausea, No pain, No vomiting Physical Exam Date Time Temp Pulse Resp B/P Pulse Ox O2 Delivery O2 Flow Rate FiO2 01/06/17 14:59 124 24 95/66 98 Nasal Cannula 3.0 01/06/17 14:22 115 26 103/64 94 Nasal Cannula 2.0 01/06/17 14:09 126 26 117/67 94 Nasal Cannula 2.0 01/06/17 14:01 124 24 99/50 94 Nasal Cannula 2.0 01/06/17 13:47 130 24 99/46 94 Nasal Cannula 2.0 01/06/17 13:41 119 24 99/62 95 Nasal Cannula 01/06/17 13:16 135 26 104/57 97 Nasal Cannula 2.0 01/06/17 13:06 120 26 85/60 99 Nasal Cannula 2.0 01/06/17 12:59 116 20 109/69 99 Nasal Cannula 2.0 01/06/17 12:42 130 26 90/51 95 Nasal Cannula 2.0 01/06/17 12:06 123 26 94/49 98 Nasal Cannula 2.0 01/06/17 11:53 132 24 103/70 98 Nasal Cannula 2.0 01/06/17 11:52 98 Nasal Cannula 2.0 01/06/17 11:44 116 24 80/58 95 Room Air 01/06/17 11:34 132 24 76/54 95 01/06/17 11:22 123 26 96/53 95 Room Air 01/06/17 10:54 119 01/06/17 10:53 36.6 136 24 114/68 94 Room Air 01/06/17 10:53 94 Room Air General Appearance: + mild distress Eyes: normal inspection, PERRL, EOMI Neck: supple, no JVD, trachea midline Respiratory/Chest: no respiratory distress, no accessory muscle use, + decreased breath sounds Cardiovascular: no gallop, no murmur, + tachycardia, + irregularly irregular Abdomen: non tender, soft, + abnormal bowel sounds (hypoactive), + pertinent finding (Dried blood stains on legs from bloody BMs - just cleaned up by RNs) Extremities: normal inspection, no pedal edema Neurologic/Psych: alert, + depressed affect, + disoriented (oriented mostly to self) Skin: normal color, no jaundice, no rash Laboratory Results Last 24 Hours Test 01/06/17 11:30 01/06/17 11:40 01/06/17 11:52 01/06/17 12:15 White Blood Count 18.57 K/uL Red Blood Count 2.46 M/uL Hemoglobin 8.2 g/dL Hematocrit 25.1 % Mean Corpuscular Volume 102.0 fL Mean Corpuscular Hemoglobin 33.3 pg Mean Corpuscular Hemoglobin Concent 32.7 g/dl Platelet Count 276 K/uL Mean Platelet Volume 9.6 fL Neutrophils (%) (Auto) 84.4 % Lymphocytes (%) (Auto) 5.1 % Monocytes (%) (Auto) 4.2 % Eosinophils (%) (Auto) 0.1 % Basophils (%) (Auto) 0.2 % Neutrophils # (Auto) 15.69 K/uL Lymphocytes # (Auto) 0.94 K/uL Monocytes # (Auto) 0.78 K/uL Eosinophils # (Auto) 0.01 K/uL Basophils # (Auto) 0.03 K/uL RDW Standard Deviation 58.4 fL RDW Coefficient of Variation 15.5 % Immature Granulocyte % (Auto) 6.0 % Immature Granulocyte # (Auto) 1.12 K/uL Toxic Granulation 1+ Echinocytes 1+ Prothrombin Time 12.7 SECONDS Prothromb Time International Ratio 1.2 Activated Partial Thromboplast Time 35.2 SECONDS Partial Thromboplastin Ratio 1.4 Sodium Level 134 mmol/L Potassium Level 4.9 mmol/L Chloride Level 99 mmol/L Carbon Dioxide Level 20 mmol/L Anion Gap 15.0 mmol/L Blood Urea Nitrogen 31 mg/dl Creatinine 1.10 mg/dl Est Creatinine Clear Calc Drug Dose 29.8 ml/min Estimated GFR () 52.3 Estimated GFR (Non- 45.1 BUN/Creatinine Ratio 28.1 Random Glucose 252 mg/dl Calcium Level 6.7 mg/dl Total Bilirubin 0.4 mg/dl Direct Bilirubin 0.1 mg/dl Aspartate Amino Transf (AST/SGOT) 86 U/L Alanine Aminotransferase (ALT/SGPT) 37 U/L Alkaline Phosphatase 126 U/L Ammonia 28.0 umol/L Total Creatine Kinase 27 U/L Creatine Kinase MB 1.4 ng/ml Creatine Kinase MB Ratio 5.2 Troponin I 0.034 ng/ml Total Protein 3.9 gm/dl Albumin 1.4 gm/dl Lipase 166 U/L Thyroid Stimulating Hormone (TSH) 5.770 uIu/ml Bedside Lactic Acid Venous 7.87 mmol/L Arterial Blood pH 7.44 Arterial Blood Partial Pressure CO2 32 mmHg Arterial Blood Partial Pressure O2 81 mm/Hg Arterial Blood HCO3 21 mmol/L Arterial Blood Oxygen Saturation 92.9 % Arterial Blood Base Excess -2.8 mEq/L Arterial Blood Gas Delivery POS Baldo Test ROOM AIR Urine Color YELLOW Urine Appearance SL CLOUDY Urine pH 5.0 Urine Specific [place] >= 1.030 Urine Protein 1+ Urine Glucose (UA) NEG Urine Ketones TRACE Urine Occult Blood NEG Urine Nitrite NEG Urine Bilirubin NEG Urine Urobilinogen NEG Urine Leukocyte Esterase NEG Urine RBC 0-4 /hpf Urine WBC 1-5 /hpf Urine Epithelial Cells 0-5 /lpf Urine Amorphous Sediment PRESENT Urine Bacteria NEG Urine Yeast BUD W/ HYPHAE Impression Patient is a 86 year old female currently admitted for sepsis (origin unknown for now but multiple possible sources including from IJ, ? pneumonia, L elbow infection, infectious colitis). She is seen for bloody BMs & anemia. Given hypotension, tachycardia, likely has ischemic colitis, though other differentials include: infectious colitis, IBD flare (less likely), diverticular bleeding, AVMs. Plan - Defer sepsis workup and antibx choice to primary team - Protonix 40mg IV BID - Obtain stool cx and Cdiff - CT abd/pelvis w IV contrast only - NPO except sips and chips; will re-assess tomorrow if she needs any endoscopic intervention, if needed will proceed w EGD eval first. - Hold Pradaxa; Monitor H/H and transfuse prn - May continue Mesalamine 800mg daily for now. I have seen examined and agree with the plan as outlined above by NAOMI Gallagher. -BP has improved with only volume, HR still elevated. -Has had some rectal bleeding but think it is likely sepsis given infected elbow -Support hemodynamics, broad spectrum abx, IV PPI GTT to cover upper GI sources -If patient has continued bleeding, then please call GI MD security monitor. -Remain NPO
[2017-01-06] MEDS ORDERED: [UNRECOGNIZED DRUG - REMARK] SCH (16:23)
[2017-01-06 16:39] LABS: HEMATOCRIT 23.6 % (37-47)
[2017-01-06 17:01] LABS: BUN/CREATININE RATIO 35.3 (10-20); CALCIUM 6.7 mg/dl (8.5-10.1); POTASSIUM 4.8 mmol/L (3.5-5.1)
[2017-01-06] MEDS ORDERED: VANCOMYCIN INJ 0 MG in SODIUM CHLORIDE 0.9% 500ML 500 ML IV SCH (18:15)
[2017-01-06] MEDS: VANCOMYCIN INJ 1,000 MG in SODIUM CHLORIDE 0.9% 250ML 250 ML IV SCH (18:23)
--- NOTE | 2017-01-06 18:26 | Pharmacy Progress Note ---
Pharmacy Antibiotic Consult Date of Service: Jan 06, 2017. Pharmacy Dosing Scope Pharmacy is consulted to initiate vancomycin/Ciprofloxacin IV dosing therapy, order appropriate labs and adjust drug dose/frequency. Subjective The patient is a 86 year old female admitted on Jan 06, 2017 at 14:50. She was admitted to [facility] after staying at [facility] for several days. There , she was diagnosed with septic bursitis and treated with at least vancomycin 1 gm IV daily from 12/28/16-01/04/2017. She was found to be weak and unresponsive. She was brought to [facility] and admitted. Objective Height (Feet): 5 Height (Inches): 4.00 Weight (Kilograms): 66.700 Lab Results (24hrs): Item Value Date Time Random Vancomycin Level 12.4 mcg/ml 01/06/17 1647 Laboratory Tests Test 01/06/17 11:30 01/06/17 16:29 BUN/Creatinine Ratio 28.1 35.3 Blood Urea Nitrogen 31 mg/dl 35 mg/dl Creatinine 1.10 mg/dl 1.00 mg/dl White Blood Count 18.57 K/uL Red Blood Count 2.46 M/uL Hemoglobin 8.2 g/dL Hematocrit 25.1 % Mean Corpuscular Volume 102.0 fL Mean Corpuscular Hemoglobin 33.3 pg Mean Corpuscular Hemoglobin Concent 32.7 g/dl Platelet Count 276 K/uL Mean Platelet Volume 9.6 fL Neutrophils (%) (Auto) 84.4 % Lymphocytes (%) (Auto) 5.1 % Monocytes (%) (Auto) 4.2 % Eosinophils (%) (Auto) 0.1 % Basophils (%) (Auto) 0.2 % Neutrophils # (Auto) 15.69 K/uL Lymphocytes # (Auto) 0.94 K/uL Monocytes # (Auto) 0.78 K/uL Eosinophils # (Auto) 0.01 K/uL Basophils # (Auto) 0.03 K/uL Micro Results: Cultures from surgical procedure grew: Acinetobacter baumannii sensitive to 3rd generation cephalosporins, quinolones, aminoglycosides, carbapenems coag neg Staph sensitive to vancomycin, daptomycin, linezolid; resistant to quinolones, erythromycin, oxacillin, clindamycin Strep sp sensitive to vancomycin, penicillin, tetracycline; resistant to clindamycin, quinolones, erythromycin Assessment & Plan ASSESSMENT * Ms Morales is an 86 y/o F admitted due to weakness. She had a very low blood pressure. * She has received vancomycin 1 gm IV daily from 12/28/16-01/04/2017 at [facility]. Her troughs from this time were * 12/31/16= 11.3 mcg/mL * 01/02/17 12.4 mcg/mL PLAN * Random level this afternoon was 12.4 mcg/mL (approximately 4 hours after the previous dose of vancomycin hung). It appears the currently regimen of vancomycin 1 gm IV daily is appropriate. * Continue vancomycin 1 gm IV daily and order trough prior to fourth dose on Tuesday01/09/17 * Goal peak: 35-40 mcg/mL * Goal trough: 15-20 mcg/mL (indication: joint infection) continue ciprofloxacin 400 mg IV q12 hours and monitor kidney function closely. Pharmacy will continue to follow and will adjust dose/frequency as necessary. Thank you
[2017-01-06] MEDS ORDERED: SODIUM CHLORIDE 0.9% 500ML 500 ML IV PRN (19:15)
[2017-01-06] MEDS: SODIUM CHLORIDE 0.9% 1000ML 1,000 ML IV SCH (19:49)
--- NOTE | 2017-01-06 20:28 | DIAGNOSTIC IMAGING REPORT ---
CT OF THE ABDOMEN AND PELVIS WITH CONTRAST CLINICAL HISTORY: Bloody bowel movements. Evaluate for bowel ischemia. Sepsis. COMPARISON STUDY: None. TECHNIQUE: Following IV administration of 92 mL of [id number], axial images of the abdomen and pelvis were obtained from the lung bases to the proximal femurs. Images were reviewed in the axial, sagittal, and coronal planes. IV contrast was administered without complication. CT DOSE: 480.62 mGy.cm FINDINGS: Visualized portions of the lower chest demonstrate marked cardiomegaly. Bilateral pleural effusions are partially imaged. A right pleural effusion is likely small to moderate. The left pleural effusion is likely small. Associated opacities favor atelectasis. No pneumatosis, free air or portal venous gas is present. There is a small amount of abdominal and pelvic ascites. A Martini balloon is present within the bladder with gas. There is anasarca. The liver, adrenal glands and pancreas are unremarkable. There is a diverticulum of the second portion of the duodenum. The spleen is suboptimally assessed due to artifact. There is possible hypoenhancement within the anterior aspect of the spleen. There is no evidence of a bowel obstruction. There is small bowel mesenteric vessel engorgement, most evident within the right lower quadrant. There is colonic diverticulosis without evidence for acute diverticulitis. The main, left and right portal veins are patent. Multiple small bowel diverticula are also present. There is extensive atherosclerotic plaque of the abdominal aorta. There is stenosis versus occlusion of the proximal celiac axis. 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 There is suspected occlusion of the bilateral superficial femoral arteries. IMPRESSION: 1. Small amount of abdominal and pelvic ascites. Anasarca. Small to moderate right and small left pleural effusions with associated opacities which favor atelectasis. 2. Small bowel mesentery vessel engorgement and edema, most evident within the right lower quadrant. No pneumatosis, free air or portal venous gas. No definite bowel wall thickening. This could reflect a nonspecific enteritis and bowel ischemia is within the differential. Close clinical monitoring is recommended. Discussed with Dr. Adkins at time of dictation. 3. Extensive atherosclerotic plaque of the abdominal aorta with severe stenosis versus occlusion of the proximal celiac axis, severe stenosis of the proximal SMA, severe stenosis of the bilateral renal arteries and suspected occlusion of the bilateral superficial femoral arteries. 4. Possible hypoenhancement of the anterior aspect of the spleen. This is probably artifactual although a splenic infarct could appear similar. Electronically signed by: Mayur Mack M.D. 01/06/2017 8:26 PM Dictated Date/Time: 01/06/2017 7:36 PM
[2017-01-06] MEDS ORDERED: PIPERACILL/TAZOBAC IV 4.5 GM in DEXTROSE 5% 100ML 100 ML IV SCH (20:30)
[2017-01-06] MEDS ORDERED: PIPERACILL/TAZOBAC CONSULT ACTIVE PRN (20:45)
[2017-01-06 20:52] LABS: HEMATOCRIT 24.2 % (37-47)
[2017-01-06 20:55] LABS: BUN/CREATININE RATIO 38.6 (10-20); CREATININE 0.9 mg/dl (0.60-1.20); MAGNESIUM 1.9 mg/dl (1.8-2.4); POTASSIUM 4.7 mmol/L (3.5-5.1)
[2017-01-06 20:56] LABS: CALCIUM 6.5 mg/dl (8.5-10.1)
[2017-01-06] MEDS ORDERED: CIPROFLOXACIN 400MG / D5W IV SCH (21:00)
[2017-01-06] MEDS: HYDROCORTISONE IV 50 MG in SYRINGE 0 ML IV SCH (21:02)
[2017-01-06] MEDS: METRONIDAZOLE / NSS 500 MG in PREMIXED NSS 100 ML IV SCH (21:02)
[2017-01-06] MEDS: CEFEPIME IV 2,000 MG in DEXTROSE 5% 100ML 100 ML IV SCH (21:05)
[2017-01-06] MEDS: INSULIN GLARGINE SOLOSTAR 100 UNITS/ML 3 ML PEN SC SCH (21:07)
[2017-01-06 22:00] LABS: URINE APPEARANCE CLOUDY (CLEAR); URINE BILIRUBIN NEG (NEG); URINE COLOR DK YELLOW; URINE EPITHELIAL CELL AUTO >30 /lpf (0-5); URINE NITRITE NEG (NEG); URINE SPECIFIC GRAVITY 1.041 (1.000-1.030); UROBILINOGEN NEG (NEG); ZZUR CULT IF INDIC CLEAN CATCH YES
[2017-01-06 22:03] LABS: MANUAL MICROSCOPIC REQUIRED? NO; REVIEW REQ? YES
--- NOTE | 2017-01-06 22:12 | Critical Care Consultation ---
Critical Care Consultation Date of Consultation: Jan 06, 2017. Attending Physician: Blake Malloy MD Reason for Consultation: Hypotension & GI Bleeding History of Present Illness Attending: Dr. Jd Adkins Shena Morales is an 86yo female with a significant medical history including DMII, Ulcerative Colitis, HF with an EF of 50%, hypothyroidism, CAD, CVA; who presented to the ED after being found unresponsive at [facility] where EMS temporarily thought her to be in cardiac arrest. She was hypotensive and tachycardic prior to receiving IV fluids in route to ED. While in the ED, pt experienced 2-3 bright red blood bowel movements. EKG demonstrated A. Fib RVR. Pt has chronic A. Fib and takes Pradaxa; which has been held in light of recent bleeding. She was found to have a lactic level of 7.7 and to be anemic with a hgb of 8.2. Her Systolic BP was 80-90mmHg. Troponin and head CT were both negative; as was urine for infection. However, pt had a leukocytosis and CXR demonstrated a possible left base infiltrate. She received a fluid bolus and one time doses of IV Rocephin and Zosyn. She was continued on her current Vancomycin and started on Metronidazole and Cefepime prior to admission to the ICU. She was recently admitted (12/28) and discharged (01/03) from [facility] for weakness, dizziness, vomiting, and rigors. She was found at that time to have a painful left olecranon bursitis. During that hospital stay blood cultures were positive for Staph, Strep, and Acinetobacter. 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 She was discharged to [facility] for follow-up treatment at that time. Pt denies recent fever, chills, chest pain, dysuria, abd pain, nausea or vomiting. Denies numbness or tingling of the extremities. She does not currently feel short of breath but did prior to arrival this morning. She has also been experiencing a dry cough. Past Medical/Surgical History Medical Problems: (1) Anticoagulant long-term use (2) Inflammatory Arthritis (3) Asthma (4) CAD (coronary artery disease) (5) Current chronic use of systemic steroids (6) CVA (cerebral vascular accident) (7) GERD (gastroesophageal reflux disease) (8) Heart failure (9) History of embolic stroke (10) Hyperlipidemia (11) Hypertension (12) Hypothyroidism (13) Inflammatory bowel disease (14) Persistent atrial fibrillation (15) Type 2 diabetes mellitus Surgical Problems: (1) History of arthroplasty of right knee (2) History of cataract surgery (3) S/P CABG x 3 (4) S/P cholecystectomy (5) S/P hysterectomy (6) Status post cataract extraction (7) Status post cholecystectomy (8) Status post coronary artery bypass grafting (9) Status post hysterectomy Family History Non-Contributory Social History Smoking Status: Never Smoker Alcohol Use: none Drug Use: none Housing Status: care home Allergies Coded Allergies: No Known Allergies (Unverified , 01/06/17) Home Medications Scheduled Bumetanide (Bumex), 1 MG PO QAM Cholecalciferol (Vitamin D3), 1 TAB PO DAILY Ciprofloxacin Hcl (Cipro), 500 MG PO Q12H Ciprofloxacin In D5w (Cipro I.v.-In D5w), 400 MG IV Q12 Cyanocobalamin (Vitamin B-12), 500 MCG PO QAM Dabigatran Etexilate Mesylate (Pradaxa), 150 MG PO BID Dexlansoprazole (Dexilant), 1 TAB PO QAM Dimethicone & Incontinent Enedelia (Comfort Clean/Comfort Marielena), 1 DOSE TOP TID Ferrous Sulfate (Ferrous Sulfate), 1 TAB PO BID Gabapentin (Neurontin), 300 MG PO QAM Levothyroxine Sodium (Synthroid), 88 MCG PO DAILYBB Magnesium Oxide (Mag-Ox), 400 MG PO TID Mesalamine (Mesalamine Dr), 1 TAB PO QAM Methylprednisolone (Methylprednisolone), 1 TAB PO QAM Metoprolol Succinate (Metoprolol Succinate ER), 1 TAB PO QAM Potassium Chloride Microencaps (Potassium Chloride Er), 1 TAB PO QAM Potassium Ext Rel (Klor-Con), 20 MEQ PO QAM Vancomycin HCl in Sodium Chlor (Vancomycin Hydrochloride/ 1-0.9 gm/250Ml-%), 1 GM IV DAILY Miscellaneous Medications Heparin Sodium (Porcine) Lock (Heparin Lock Flush), 1 DOSE FLUSH Sodium Chloride Flush (Normal Saline Flush), 20 ML FLUSH Current Inpatient Medications Current Inpatient Medications Medications (Trade) Dose Ordered Sig/Nanda Route Start Time Stop Time Status Last Admin Dose Admin Norepinephrine Bitartrate 8 mg/ Dextrose 508 ml @ 0 mls/hr Q0M PRN IV 01/06/17 14:45 02/05/17 14:44 Pantoprazole Sodium/Syringe (Protonix Inj/ Syringe) 10 ml @ 5 mls/min BID@1100,2100 IV 01/07/17 11:00 02/06/17 10:59 Ioversol (Optiray 320) 125 ml UD PRN IV 01/06/17 16:00 01/10/17 15:59 Miscellaneous Information 1 ea 1 ea UD N/A 01/06/17 16:23 02/05/17 16:22 Vancomycin HCl 1000 mg/Sodium Chloride 270 ml @ 125 mls/hr DAILY@1900 IV 01/06/17 19:00 02/17/17 18:59 01/06/17 18:23 125 MLS/HR Hydrocortisone Sodium Succinate 50 mg/Syringe 1 ml @ 4 mls/min Q8@0600,1400,2200 IV 01/06/17 22:00 02/05/17 21:59 01/06/17 21:02 4 MLS/MIN Cefepime HCl 2000 mg/Dextrose 112.5 ml @ 200 mls/hr Q12H IV 01/06/17 20:00 01/16/17 19:59 01/06/17 21:05 200 MLS/HR Metronidazole 500 mg/Prmx 100 ml @ 100 mls/hr Q8H IV 01/06/17 20:00 01/08/17 19:14 01/06/17 21:02 100 MLS/HR Sodium Chloride 1,000 ml @ 40 mls/hr Q24H IV 01/06/17 19:15 02/05/17 19:14 01/06/17 19:49 40 MLS/HR Sodium Chloride (Nss 500ml) 500 ml @ 999 mls/hr Q31M PRN IV 01/06/17 19:15 Piperacillin Sod/ Tazobactam Sod 1 ea 1 ea UD PRN N/A 01/06/17 20:45 02/05/17 20:44 Levothyroxine Sodium/Syringe (Synthroid Inj/ Syringe) 2.5 ml @ 2 mls/min DAILY@09 IV 01/07/17 09:00 02/06/17 08:59 Insulin Aspart (novoLOG ASPART) SLIDING SCALE G... Q6 SC 01/07/17 00:00 02/06/17 00:00 Insulin Glargine (Lantus Solostar Pen) 4 unit BID SC 01/06/17 21:00 02/05/17 20:59 01/06/17 21:07 4 UNIT Metoprolol Tartrate (Lopressor Iv) 1.25 mg Q4 IV. 01/07/17 00:00 02/06/17 00:00 Review of Systems 12 systems reviewed and negative other than previously mentioned in the HPI. Physical Exam Date Time Temp Pulse Resp B/P Pulse Ox O2 Delivery O2 Flow Rate FiO2 01/06/17 20:00 Nasal Cannula 3.0 01/06/17 19:10 36.4 107 22 113/87 100 01/06/17 18:31 116 23 100 01/06/17 18:30 109 22 111/54 100 01/06/17 18:16 106 40 115/66 100 01/06/17 18:01 101 20 145/55 100 01/06/17 17:51 36.9 01/06/17 17:46 105 22 100 01/06/17 17:45 109 18 115/78 100 01/06/17 17:30 109 18 91/66 100 01/06/17 17:16 135 15 86/71 01/06/17 17:15 140 20 93 01/06/17 17:00 118 24 88/58 100 01/06/17 17:00 36.3 01/06/17 16:45 124 25 106/84 99 01/06/17 16:38 112 26 76/61 100 01/06/17 16:30 115 26 95 01/06/17 16:30 36.2 01/06/17 16:15 116 27 98 01/06/17 16:01 96 25 141/45 97 01/06/17 16:00 36.5 125 24 141/45 96 Nasal Cannula 3.0 01/06/17 16:00 36.5 01/06/17 16:00 119 26 97 01/06/17 15:31 130 30 /47 01/06/17 15:30 178 27 80 01/06/17 15:30 36.5 01/06/17 14:59 124 24 95/66 98 Nasal Cannula 3.0 01/06/17 14:22 115 26 103/64 94 Nasal Cannula 2.0 01/06/17 14:09 126 26 117/67 94 Nasal Cannula 2.0 01/06/17 14:01 124 24 99/50 94 Nasal Cannula 2.0 01/06/17 13:47 130 24 99/46 94 Nasal Cannula 2.0 01/06/17 13:41 119 24 99/62 95 Nasal Cannula 01/06/17 13:16 135 26 104/57 97 Nasal Cannula 2.0 01/06/17 13:06 120 26 85/60 99 Nasal Cannula 2.0 01/06/17 12:59 116 20 109/69 99 Nasal Cannula 2.0 01/06/17 12:42 130 26 90/51 95 Nasal Cannula 2.0 01/06/17 12:06 123 26 94/49 98 Nasal Cannula 2.0 01/06/17 11:53 132 24 103/70 98 Nasal Cannula 2.0 01/06/17 11:52 98 Nasal Cannula 2.0 01/06/17 11:44 116 24 80/58 95 Room Air 01/06/17 11:34 132 24 76/54 95 01/06/17 11:22 123 26 96/53 95 Room Air 01/06/17 10:54 119 01/06/17 10:53 36.6 136 24 114/68 94 Room Air 01/06/17 10:53 94 Room Air Vital Signs - as noted Laboratory Data - as noted Physical Exam: General - NAD, Resting Comfortably in bed Eyes - PERRL, EOMI No icterus, gaze conjugate ENT - Mucosa dry, no lesions or candidiasis Neck - Supple, trachea midline, no masses or lymphadenopathy, no JVD or bruits Lungs - No paradoxical chest wall movement, coarse to auscultation bilaterally with bibasilar rales, no wheezes or rhonchi Heart - Irregularly irregular with rates of 90-110, 3/6 systolic murmur, no rubs , clicks, or gallops appreciated Abdomen - BS present, no bruits noted, tympanic to percussion, soft, nontender, nondistended, no organomegaly Extremities - Pitting pedal edema, pedal pulses intact, multiple skin tears, ulcers as well as wound to left elbow Neuro - A&O X4 Strength extremities equal and appropriate bilaterally Reflexes: Bicep, brachioradialis, patellar, and plantar normal and equal CN:PERRL, EOMI, no facial asymmetry, uvula/tongue midline Laboratory Results Last 24 Hours Test 01/06/17 00:00 01/06/17 11:30 01/06/17 11:40 01/06/17 11:52 White Blood Count 18.57 K/uL Red Blood Count 2.46 M/uL Hemoglobin 8.2 g/dL Hematocrit 25.1 % Mean Corpuscular Volume 102.0 fL Mean Corpuscular Hemoglobin 33.3 pg Mean Corpuscular Hemoglobin Concent 32.7 g/dl Platelet Count 276 K/uL Mean Platelet Volume 9.6 fL Neutrophils (%) (Auto) 84.4 % Lymphocytes (%) (Auto) 5.1 % Monocytes (%) (Auto) 4.2 % Eosinophils (%) (Auto) 0.1 % Basophils (%) (Auto) 0.2 % Neutrophils # (Auto) 15.69 K/uL Lymphocytes # (Auto) 0.94 K/uL Monocytes # (Auto) 0.78 K/uL Eosinophils # (Auto) 0.01 K/uL Basophils # (Auto) 0.03 K/uL RDW Standard Deviation 58.4 fL RDW Coefficient of Variation 15.5 % Immature Granulocyte % (Auto) 6.0 % Immature Granulocyte # (Auto) 1.12 K/uL Toxic Granulation 1+ Echinocytes 1+ Prothrombin Time 12.7 SECONDS Prothromb Time International Ratio 1.2 Activated Partial Thromboplast Time 35.2 SECONDS Partial Thromboplastin Ratio 1.4 Sodium Level 134 mmol/L Potassium Level 4.9 mmol/L Chloride Level 99 mmol/L Carbon Dioxide Level 20 mmol/L Anion Gap 15.0 mmol/L Blood Urea Nitrogen 31 mg/dl Creatinine 1.10 mg/dl Est Creatinine Clear Calc Drug Dose 29.8 ml/min Estimated GFR () 52.3 Estimated GFR (Non- 45.1 BUN/Creatinine Ratio 28.1 Random Glucose 252 mg/dl Calcium Level 6.7 mg/dl Total Bilirubin 0.4 mg/dl Direct Bilirubin 0.1 mg/dl Aspartate Amino Transf (AST/SGOT) 86 U/L Alanine Aminotransferase (ALT/SGPT) 37 U/L Alkaline Phosphatase 126 U/L Ammonia 28.0 umol/L Total Creatine Kinase 27 U/L Creatine Kinase MB 1.4 ng/ml Creatine Kinase MB Ratio 5.2 Troponin I 0.034 ng/ml Total Protein 3.9 gm/dl Albumin 1.4 gm/dl Lipase 166 U/L Thyroid Stimulating Hormone (TSH) 5.770 uIu/ml Bedside Lactic Acid Venous 7.87 mmol/L Arterial Blood pH 7.44 Arterial Blood Partial Pressure CO2 32 mmHg Arterial Blood Partial Pressure O2 81 mm/Hg Arterial Blood HCO3 21 mmol/L Arterial Blood Oxygen Saturation 92.9 % Arterial Blood Base Excess -2.8 mEq/L Arterial Blood Gas Delivery POS Baldo Test ROOM AIR Test 01/06/17 12:15 01/06/17 16:02 01/06/17 16:29 01/06/17 16:47 Urine Color YELLOW Urine Appearance SL CLOUDY Urine pH 5.0 Urine Specific Cardale >= 1.030 Urine Protein 1+ Urine Glucose (UA) NEG Urine Ketones TRACE Urine Occult Blood NEG Urine Nitrite NEG Urine Bilirubin NEG Urine Urobilinogen NEG Urine Leukocyte Esterase NEG Urine RBC 0-4 /hpf Urine WBC 1-5 /hpf Urine Epithelial Cells 0-5 /lpf Urine Amorphous Sediment PRESENT Urine Bacteria NEG Urine Yeast BUD W/ HYPHAE Bedside Glucose 189 mg/dl Hemoglobin 7.9 g/dL Hematocrit 23.6 % Sodium Level 135 mmol/L Potassium Level 4.8 mmol/L Chloride Level 99 mmol/L Carbon Dioxide Level 25 mmol/L Anion Gap 11.0 mmol/L Blood Urea Nitrogen 35 mg/dl Creatinine 1.00 mg/dl Est Creatinine Clear Calc Drug Dose 37.2 ml/min Estimated GFR () 58.7 Estimated GFR (Non- 50.6 BUN/Creatinine Ratio 35.3 Random Glucose 233 mg/dl Lactic Acid Level 3.9 mmol/L Calcium Level 6.7 mg/dl Procalcitonin 2.78 ng/mL Random Vancomycin Level 12.4 mcg/ml Test 01/06/17 20:30 Hemoglobin 8.2 g/dL Hematocrit 24.2 % Sodium Level 134 mmol/L Potassium Level 4.7 mmol/L Chloride Level 99 mmol/L Carbon Dioxide Level 28 mmol/L Anion Gap 7.0 mmol/L Blood Urea Nitrogen 35 mg/dl Creatinine 0.90 mg/dl Est Creatinine Clear Calc Drug Dose 41.4 ml/min Estimated GFR () 66.6 Estimated GFR (Non- 57.5 BUN/Creatinine Ratio 38.6 Random Glucose 187 mg/dl Lactic Acid Level 2.0 mmol/L Calcium Level 6.5 mg/dl Magnesium Level 1.9 mg/dl Diagnostic Results CT OF THE ABDOMEN AND PELVIS WITH CONTRAST CLINICAL HISTORY: Bloody bowel movements. Evaluate for bowel ischemia. Sepsis. COMPARISON STUDY: None. TECHNIQUE: Following IV administration of 92 mL of [id number], axial images of the abdomen and pelvis were obtained from the lung bases to the proximal femurs. Images were reviewed in the axial, sagittal, and coronal planes. IV contrast was administered without complication. CT DOSE: 480.62 mGy.cm FINDINGS: Visualized portions of the lower chest demonstrate marked cardiomegaly. Bilateral pleural effusions are partially imaged. A right pleural effusion is likely small to moderate. The left pleural effusion is likely small. Associated opacities favor atelectasis. No pneumatosis, free air or portal venous gas is present. There is a small amount of abdominal and pelvic ascites. A Martini balloon is present within the bladder with gas. There is anasarca. The liver, adrenal glands and pancreas are unremarkable. There is a diverticulum of the second portion of the duodenum. The spleen is suboptimally assessed due to artifact. There is possible hypoenhancement within the anterior aspect of the spleen. There is no evidence of a bowel obstruction. There is small bowel mesenteric vessel engorgement, most evident within the right lower quadrant. There is colonic diverticulosis without evidence for acute diverticulitis. The main, left and right portal veins are patent. Multiple small bowel diverticula are also present. There is extensive atherosclerotic plaque of the abdominal aorta. There is stenosis versus occlusion of the proximal celiac axis. 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 There is suspected occlusion of the bilateral superficial femoral arteries. IMPRESSION: 1. Small amount of abdominal and pelvic ascites. Anasarca. Small to moderate right and small left pleural effusions with associated opacities which favor atelectasis. 2. Small bowel mesentery vessel engorgement and edema, most evident within the right lower quadrant. No pneumatosis, free air or portal venous gas. No definite bowel wall thickening. This could reflect a nonspecific enteritis and bowel ischemia is within the differential. Close clinical monitoring is recommended. Discussed with Dr. Adkins at time of dictation. 3. Extensive atherosclerotic plaque of the abdominal aorta with severe stenosis versus occlusion of the proximal celiac axis, severe stenosis of the proximal SMA, severe stenosis of the bilateral renal arteries and suspected occlusion of the bilateral superficial femoral arteries. 4. Possible hypoenhancement of the anterior aspect of the spleen. This is probably artifactual although a splenic infarct could appear similar. Electronically signed by: Mayur Mack M.D. 01/06/2017 8:26 PM Dictated Date/Time: 01/06/2017 7:[address] SCAN OF THE BRAIN WITHOUT IV CONTRAST CLINICAL HISTORY: Generalized weakness. Unresponsive. COMPARISON STUDY: No priors. TECHNIQUE: Unenhanced axial CT scan of the brain is performed from the vertex to the skull base. CT DOSE: 823.94 mGycm FINDINGS: Brain parenchyma: There are age-related involutional changes noting moderate patchy subcortical and periventricular microangiopathic change. There is no hemorrhage, mass effect, or evidence of acute territorial ischemia by CT criteria. A chronic lacunar infarct is identified in the right thalamus. Davison-white matter is preserved. No extra-axial fluid collection is seen. Ventricles, sulci, cisterns: Prominent secondary to involutional change. Intracranial vasculature: There is an atherosclerotic calcification of the cavernous carotid and vertebral arteries. Calvarium: Unremarkable. Sinuses and mastoids: The visualized paranasal sinuses are clear. The mastoid air cells are well pneumatized. Orbits: The bony orbits are grossly intact. There are bilateral ocular lens implants. IMPRESSION: Senescent changes as above with no hemorrhage, mass effect, or evidence of acute territorial ischemia by CT criteria. Electronically signed by: Dany Llanos M.D. 01/06/2017 12:30 PM Dictated Date/Time: 01/06/2017 12:28 PM CHEST ONE VIEW PORTABLE CLINICAL HISTORY: Evaluate Fever/Sepsis dyspnea COMPARISON STUDY: No previous studies for comparison. FINDINGS: Moderate cardiac megaly. Prior median sternotomy. Parenchymal infiltrate left base. Lungs otherwise appear clear. Central catheters. Vena cava. IMPRESSION: Infiltrate left base. Electronically signed by: Quentin Perera M.D. 01/06/2017 11:22 AM Dictated Date/Time: 01/06/2017 11:21 AM Assessment & Plan (1) Heart failure (2) CAD (coronary artery disease) (3) Persistent atrial fibrillation (4) GERD (gastroesophageal reflux disease) (5) Hypothyroidism (6) Type 2 diabetes mellitus (7) Hyperlipidemia (8) Inflammatory bowel disease (9) Anticoagulant long-term use (10) Dehydration (11) Anemia (12) Pneumonia (13) Cellulitis of upper extremity (14) Atrial fibrillation with RVR (15) GI bleed (16) Severe sepsis (17) Current chronic use of systemic steroids Reason Critically Ill: Patient is an 86-year-old female who is transferred to the ICU for hypotension, suspected sepsis versus intra-abdominal process, hematochezia, and anemia. PLAN: ID: Pt is afebrile with a leukocytosis; which could be leukemoid reaction versus infective process. Lactic Acid was elevated in ED however is now trending down to normal at 2.0. A possible low flow state to the GI system could also cause this. Her Abd CT demonstrated small bowel mesentery vessel engorgement and edema which was most evident in the right lower quadrant. On no free air or portal venous gas was noted there was bowel wall thickening, therefore we cannot rule out a nonspecific enteritis or bowel ischemia. At this point we will continue to optimize the patient's fluid status, blood pressure, broad- spectrum antibiotic coverage. Chest x-ray which demonstrated a possible opacity , is more likely a left pleural effusion with concurrent atelectasis. Urinalysis this admission does not demonstrate markers for infection. * Blood cultures pending including one at right IJ central line to rule out line infection; site appears dry, clean and intact without erythema or pain. * Will maintain patient on broad-spectrum antibiotics * Cefepime for gram-negative coverage * Vancomycin for gram-positive coverage; we will follow blood cultures closely to verify any resistance as patient entered [facility] on vancomycin * Metronidazole for anaerobic coverage in the event of an intra-abdominal process * Trend fever curve * Follow daily labs CV: * Patient has received fluid resuscitation, boluses available if she becomes hypotensive again * Norepinephrine available if map less than 65 * Atrial fibrillation with RVR Lopressor IV 1.25 mg every 4 hours PRN tachycardia * Stress dose hydrocortisone in place * Monitor on telemetry Fluids/Renal: * Fluid resuscitation has improved blood pressure; however we will need to monitor BUN/creatinine closely as patient did receive contrast for abdominal CT. * BUN/Cr creatinine: 35/0.90 * Monitor daily labs * Continue normal saline at 40 mL per hour * Monitor electrolytes and replete as needed GI/Nutrition: * Please refer to ID section in regards to possible intra-abdominal source as reason for admission. * Per GI consult will continue to hold per DEXA and monitor H&H with a transfusion when necessary, will reassess tomorrow if patient needs endoscopic intervention with plan for EGD first. * C. difficile negative * Protonix 40 mg IV twice a day * Nothing by mouth except sips and chips Neuro: * Patient is alert and oriented 4 with no neurological deficits found on physical exam; negative head CT. * Monitor for pain; and treat as needed Resp: * Performed bedside ultrasound with Dr. Adkins; Pleural effusion right greater than left; Atelectatic tissue seen bilaterally * Supplemental oxygen as required; currently on nasal cannula 3 L/m with adequate saturations * Tri-flow in place * Monitor on telemetry * In the event of pulmonary process patient is on broad-spectrum antibiotics as stated above in ID Heme: * Known chronic anemia with GI bleed this admission * Patient received 1 unit of packed red blood cells today * Transfuse if hemoglobin falls below 7 * Follow H&H every 4 DVT Prophylaxis: * Chemical prophylaxis held in the setting of GI bleed; SCDs in place Endocrine: * Accu-Checks per protocol, started insulin infusion for 2 blood sugars greater than 180 * NovoLog sliding scale insulin place * Begin Synthroid 50 g IV every morning; home by mouth dose 88 g Integumentary: * Wound consult placed CCT: 60 Minutes; This time is exclusive of all separately billable procedures. Thank you for involving us in the care of this patient. Please refer to Dr. Jd Adkins's addendum for further recommendations. I have personally evaluated and examined this patient. I agree with assessment and plan of Cody Denny PA-C. Patient critically ill with sepsis versus mesenteric ischemia versus volume depletion. Serial labs broad-spectrum antibiotics will reassess in the morning
[2017-01-06 22:25] LABS: URINE PATH CASTS 0-3 GRANULAR CASTS /lpf (0)
[2017-01-07] VITALS (13 sets, daily range): BP systolic 92–146; BP diastolic 66–82; PULSE 84–113; TEMP 36.6–36.9; O2SAT 92–100
[2017-01-07] MEDS: METOPROLOL TARTRATE 1 MG/ML VIAL IV. SCH ×6 (00:01→20:21)
[2017-01-07 01:19] LABS: HEMATOCRIT 23.4 % (37-47)
[2017-01-07 01:44] LABS: BUN/CREATININE RATIO 34.7 (10-20); CALCIUM 6.6 mg/dl (8.5-10.1); CREATININE 0.98 mg/dl (0.60-1.20); POTASSIUM 4.7 mmol/L (3.5-5.1)
[2017-01-07] MEDS: METRONIDAZOLE / NSS 500 MG in PREMIXED NSS 100 ML IV SCH ×3 (05:03→20:16)
[2017-01-07 05:43] LABS: HEMATOCRIT 23.2 % (37-47); MEAN CELL VOLUME 92.1 fL (80-100); MEAN CORPUSCULAR HEMOGLOBIN 31.3 pg (25-34); MEAN CORPUSCULAR HGB CONC 34.1 g/dl (32-36); MEAN PLATELET VOLUME 9.1 fL (7.4-10.4); PLATELET COUNT 173 K/uL (130-400); RED BLOOD COUNT 2.52 M/uL (4.2-5.4); WHITE BLOOD COUNT 13.33 K/uL (4.8-10.8)
[2017-01-07] MEDS: INSULIN ASPART 100 UNITS/ML 3 ML PEN SC SCH ×5 (06:00→21:00)
[2017-01-07] MEDS: HYDROCORTISONE IV 50 MG in SYRINGE 0 ML IV SCH ×3 (06:15→21:30)
[2017-01-07 06:30] LABS: BUN/CREATININE RATIO 38.2 (10-20); CALCIUM 6.6 mg/dl (8.5-10.1); CREATININE 0.87 mg/dl (0.60-1.20); MAGNESIUM 2.3 mg/dl (1.8-2.4); POTASSIUM 4.5 mmol/L (3.5-5.1)
[2017-01-07 06:33] LABS: ALB/GLOB RATIO 0.6 (0.9-2); PHOSPHORUS 3.9 mg/dl (2.5-4.9)
[2017-01-07 06:46] LABS: ESTIMATED AVERAGE GLUCOSE 97 mg/dl; HA1C FLAG Normal (Normal)
--- NOTE | 2017-01-07 07:02 | DIAGNOSTIC IMAGING REPORT ---
CHEST ONE VIEW PORTABLE CLINICAL HISTORY: sepsis dyspnea COMPARISON STUDY: 10/08/2016 FINDINGS: Moderate stable cardiomegaly. Bibasilar parenchymal infiltrates similar as compared to the prior exam. Baseline emphysematous change. IMPRESSION: Cardiomegaly. Bibasilar parenchymal infiltrates. Electronically signed by: Quentin Perera M.D. 01/07/2017 7:00 AM Dictated Date/Time: 01/07/2017 6:59 AM
[2017-01-07] MEDS: INSULIN GLARGINE SOLOSTAR 100 UNITS/ML 3 ML PEN SC SCH ×2 (08:28→21:00)
[2017-01-07] MEDS: CEFEPIME IV 2,000 MG in DEXTROSE 5% 100ML 100 ML IV SCH ×2 (08:31→20:00)
[2017-01-07] MEDS: HEPARIN SOD 5000 UNIT/0.5 ML CARP SQ SCH ×2 (08:59→16:17)
[2017-01-07] MEDS ORDERED: LEVOTHYROXINE SODIUM INJ 50 MCG in SYRINGE 0 ML IV SCH (09:00)
[2017-01-07] MEDS ORDERED: PANTOprazole INJ 40 MG in SYRINGE 0 ML IV SCH (09:00)
--- NOTE | 2017-01-07 09:54 | Gastroenterology Progress Note ---
Progress Note Date of Service: Jan 07, 2017 Subjective Pt evaluation today including: conversation w/ patient, conversation w/ family , physical exam, chart review, lab review, review of studies, review of inpatient medication list Pt reports feeling better, denies any CP, SOB, abd pain, n/v. BP improved, HR now in 90s. She continued to have dark bloody stools overnight per RN. Hgb 7.9, received 1U PRBC transfusion last night. She feels thirsty, asking for coffee. Review of Systems Constitutional: No chills, No fever Respiratory: No cough, No shortness of breath Abdomen: + GI bleeding (dark blood per rectum ), No nausea, No pain, No vomiting Medications Current Inpatient Medications Medications (Trade) Dose Ordered Sig/Nanda Route Start Time Stop Time Status Last Admin Dose Admin Norepinephrine Bitartrate 8 mg/ Dextrose 508 ml @ 0 mls/hr Q0M PRN IV 01/06/17 14:45 02/05/17 14:44 Pantoprazole Sodium/Syringe (Protonix Inj/ Syringe) 10 ml @ 5 mls/min BID@1100,2100 IV 01/07/17 11:00 02/06/17 10:59 Ioversol (Optiray 320) 125 ml UD PRN IV 01/06/17 16:00 01/10/17 15:59 Miscellaneous Information 1 ea 1 ea UD N/A 01/06/17 16:23 02/05/17 16:22 Vancomycin HCl 1000 mg/Sodium Chloride 270 ml @ 125 mls/hr DAILY@1900 IV 01/06/17 19:00 02/17/17 18:59 01/06/17 18:23 125 MLS/HR Hydrocortisone Sodium Succinate 50 mg/Syringe 1 ml @ 4 mls/min Q8@0600,1400,2200 IV 01/06/17 22:00 02/05/17 21:59 01/07/17 06:15 4 MLS/MIN Cefepime HCl 2000 mg/Dextrose 112.5 ml @ 200 mls/hr Q12H IV 01/06/17 20:00 01/16/17 19:59 01/07/17 08:31 200 MLS/HR Metronidazole 500 mg/Prmx 100 ml @ 100 mls/hr Q8H IV 01/06/17 20:00 01/08/17 19:14 01/07/17 05:03 100 MLS/HR Sodium Chloride 1,000 ml @ 40 mls/hr Q24H IV 01/06/17 19:15 02/05/17 19:14 01/06/17 19:49 40 MLS/HR Sodium Chloride 500 ml @ 999 mls/hr Q31M PRN IV 01/06/17 19:15 Levothyroxine Sodium/Syringe (Synthroid Inj/ Syringe) 2.5 ml @ 2 mls/min DAILY@09 IV 01/07/17 09:00 02/06/17 08:59 01/07/17 08:57 2 MLS/MIN Insulin Aspart (novoLOG ASPART) SLIDING SCALE G... Q6 SC 01/07/17 00:00 02/06/17 00:00 Insulin Glargine (Lantus Solostar Pen) 4 unit BID SC 01/06/17 21:00 02/05/17 20:59 01/06/17 21:07 4 UNIT Metoprolol Tartrate (Lopressor Iv) 1.25 mg Q4 IV. 01/07/17 00:00 02/06/17 00:00 01/07/17 08:32 1.25 MG Heparin Sodium (Porcine) (Heparin 10 Unit/ ml 5 ml Flush) 5 ml PRN PRN FLUSH 01/06/17 23:45 02/05/17 23:44 Heparin Sodium (Porcine) (Heparin Sq 5000 Unit/0.5ml) 5,000 unit Q8H SQ 01/07/17 09:00 02/06/17 08:59 01/07/17 08:59 5,000 UNIT Objective Vital Signs Date Time Temp Pulse Resp B/P Pulse Ox O2 Delivery O2 Flow Rate FiO2 01/07/17 08:32 85 122/82 01/07/17 08:00 36.6 87 18 122/82 100 Nasal Cannula 2.0 01/07/17 08:00 100 Nasal Cannula 2.0 01/07/17 06:00 91 14 112/66 100 Nasal Cannula 2.0 01/07/17 05:04 106 121/70 01/07/17 04:00 36.7 94 20 105/67 100 Nasal Cannula 2.0 01/07/17 04:00 99 Nasal Cannula 3.0 01/07/17 02:00 94 14 92/68 100 Nasal Cannula 3.0 01/07/17 00:01 36.6 113 18 124/77 100 Nasal Cannula 3.0 01/07/17 00:01 95 124/72 01/06/17 23:59 99 Nasal Cannula 3.0 01/06/17 22:03 37.1 01/06/17 22:02 116 24 99 01/06/17 22:00 111 20 109/74 100 01/06/17 21:47 120 19 100 01/06/17 21:32 107 20 100 01/06/17 21:17 127 29 97 01/06/17 21:02 104 21 100 01/06/17 20:47 116 21 100 01/06/17 20:32 122 24 100 01/06/17 20:17 111 20 100 01/06/17 20:02 106 21 100 01/06/17 20:00 100 21 119/80 100 01/06/17 20:00 Nasal Cannula 3.0 01/06/17 20:00 36.9 01/06/17 19:47 107 21 100 01/06/17 19:32 110 21 100 01/06/17 19:10 36.4 107 22 113/87 100 01/06/17 18:31 116 23 100 01/06/17 18:30 109 22 111/54 100 01/06/17 18:16 106 40 115/66 100 01/06/17 18:01 101 20 145/55 100 01/06/17 17:51 36.9 01/06/17 17:46 105 22 100 01/06/17 17:45 109 18 115/78 100 01/06/17 17:30 109 18 91/66 100 01/06/17 17:16 135 15 86/71 01/06/17 17:15 140 20 93 01/06/17 17:00 118 24 88/58 100 01/06/17 17:00 36.3 01/06/17 16:45 124 25 106/84 99 01/06/17 16:38 112 26 76/61 100 01/06/17 16:30 115 26 95 01/06/17 16:30 36.2 01/06/17 16:15 116 27 98 01/06/17 16:01 96 25 141/45 97 01/06/17 16:00 36.5 125 24 141/45 96 Nasal Cannula 3.0 01/06/17 16:00 36.5 01/06/17 16:00 119 26 97 01/06/17 15:31 130 30 /47 01/06/17 15:30 178 27 80 01/06/17 15:30 36.5 01/06/17 14:59 124 24 95/66 98 Nasal Cannula 3.0 01/06/17 14:22 115 26 103/64 94 Nasal Cannula 2.0 01/06/17 14:09 126 26 117/67 94 Nasal Cannula 2.0 01/06/17 14:01 124 24 99/50 94 Nasal Cannula 2.0 01/06/17 13:47 130 24 99/46 94 Nasal Cannula 2.0 01/06/17 13:41 119 24 99/62 95 Nasal Cannula 01/06/17 13:16 135 26 104/57 97 Nasal Cannula 2.0 01/06/17 13:06 120 26 85/60 99 Nasal Cannula 2.0 01/06/17 12:59 116 20 109/69 99 Nasal Cannula 2.0 01/06/17 12:42 130 26 90/51 95 Nasal Cannula 2.0 01/06/17 12:06 123 26 94/49 98 Nasal Cannula 2.0 01/06/17 11:53 132 24 103/70 98 Nasal Cannula 2.0 01/06/17 11:52 98 Nasal Cannula 2.0 01/06/17 11:44 116 24 80/58 95 Room Air 01/06/17 11:34 132 24 76/54 95 01/06/17 11:22 123 26 96/53 95 Room Air 01/06/17 10:54 119 01/06/17 10:53 36.6 136 24 114/68 94 Room Air 01/06/17 10:53 94 Room Air Physical Exam General Appearance: WD/WN, no apparent distress Eyes: normal inspection, PERRL, EOMI Neck: supple, no JVD, trachea midline Respiratory/Chest: no respiratory distress, no accessory muscle use, + decreased breath sounds Cardiovascular: no gallop, no murmur, + irregularly irregular Abdomen: normal bowel sounds, non tender, soft Extremities: normal inspection, no pedal edema, no calf tenderness Neurologic/Psych: alert, normal mood/affect, oriented x 3 Skin: no jaundice, no rash, + pallor Laboratory Results Last 24 Hours Test 01/06/17 11:30 01/06/17 11:40 01/06/17 11:52 01/06/17 12:15 White Blood Count 18.57 K/uL Red Blood Count 2.46 M/uL Hemoglobin 8.2 g/dL Hematocrit 25.1 % Mean Corpuscular Volume 102.0 fL Mean Corpuscular Hemoglobin 33.3 pg Mean Corpuscular Hemoglobin Concent 32.7 g/dl Platelet Count 276 K/uL Mean Platelet Volume 9.6 fL Neutrophils (%) (Auto) 84.4 % Lymphocytes (%) (Auto) 5.1 % Monocytes (%) (Auto) 4.2 % Eosinophils (%) (Auto) 0.1 % Basophils (%) (Auto) 0.2 % Neutrophils # (Auto) 15.69 K/uL Lymphocytes # (Auto) 0.94 K/uL Monocytes # (Auto) 0.78 K/uL Eosinophils # (Auto) 0.01 K/uL Basophils # (Auto) 0.03 K/uL RDW Standard Deviation 58.4 fL RDW Coefficient of Variation 15.5 % Immature Granulocyte % (Auto) 6.0 % Immature Granulocyte # (Auto) 1.12 K/uL Toxic Granulation 1+ Echinocytes 1+ Prothrombin Time 12.7 SECONDS Prothromb Time International Ratio 1.2 Activated Partial Thromboplast Time 35.2 SECONDS Partial Thromboplastin Ratio 1.4 Sodium Level 134 mmol/L Potassium Level 4.9 mmol/L Chloride Level 99 mmol/L Carbon Dioxide Level 20 mmol/L Anion Gap 15.0 mmol/L Blood Urea Nitrogen 31 mg/dl Creatinine 1.10 mg/dl Est Creatinine Clear Calc Drug Dose 29.8 ml/min Estimated GFR () 52.3 Estimated GFR (Non- 45.1 BUN/Creatinine Ratio 28.1 Random Glucose 252 mg/dl Calcium Level 6.7 mg/dl Total Bilirubin 0.4 mg/dl Direct Bilirubin 0.1 mg/dl Aspartate Amino Transf (AST/SGOT) 86 U/L Alanine Aminotransferase (ALT/SGPT) 37 U/L Alkaline Phosphatase 126 U/L Ammonia 28.0 umol/L Total Creatine Kinase 27 U/L Creatine Kinase MB 1.4 ng/ml Creatine Kinase MB Ratio 5.2 Troponin I 0.034 ng/ml Total Protein 3.9 gm/dl Albumin 1.4 gm/dl Lipase 166 U/L Thyroid Stimulating Hormone (TSH) 5.770 uIu/ml Bedside Lactic Acid Venous 7.87 mmol/L Arterial Blood pH 7.44 Arterial Blood Partial Pressure CO2 32 mmHg Arterial Blood Partial Pressure O2 81 mm/Hg Arterial Blood HCO3 21 mmol/L Arterial Blood Oxygen Saturation 92.9 % Arterial Blood Base Excess -2.8 mEq/L Arterial Blood Gas Delivery POS Baldo Test ROOM AIR Urine Color YELLOW Urine Appearance SL CLOUDY Urine pH 5.0 Urine Specific Alpha >= 1.030 Urine Protein 1+ Urine Glucose (UA) NEG Urine Ketones TRACE Urine Occult Blood NEG Urine Nitrite NEG Urine Bilirubin NEG Urine Urobilinogen NEG Urine Leukocyte Esterase NEG Urine RBC 0-4 /hpf Urine WBC 1-5 /hpf Urine Epithelial Cells 0-5 /lpf Urine Amorphous Sediment PRESENT Urine Bacteria NEG Urine Yeast BUD W/ HYPHAE Test 01/06/17 16:02 01/06/17 16:29 01/06/17 16:47 01/06/17 20:30 Bedside Glucose 189 mg/dl Hemoglobin 7.9 g/dL 8.2 g/dL Hematocrit 23.6 % 24.2 % Sodium Level 135 mmol/L 134 mmol/L Potassium Level 4.8 mmol/L 4.7 mmol/L Chloride Level 99 mmol/L 99 mmol/L Carbon Dioxide Level 25 mmol/L 28 mmol/L Anion Gap 11.0 mmol/L 7.0 mmol/L Blood Urea Nitrogen 35 mg/dl 35 mg/dl Creatinine 1.00 mg/dl 0.90 mg/dl Est Creatinine Clear Calc Drug Dose 37.2 ml/min 41.4 ml/min Estimated GFR () 58.7 66.6 Estimated GFR (Non- 50.6 57.5 BUN/Creatinine Ratio 35.3 38.6 Random Glucose 233 mg/dl 187 mg/dl Lactic Acid Level 3.9 mmol/L 2.0 mmol/L Calcium Level 6.7 mg/dl 6.5 mg/dl Procalcitonin 2.78 ng/mL Random Vancomycin Level 12.4 mcg/ml Magnesium Level 1.9 mg/dl Test 01/06/17 23:45 01/07/17 01:08 01/07/17 05:34 Bedside Glucose 179 mg/dl Hemoglobin 7.9 g/dL 7.9 g/dL Hematocrit 23.4 % 23.2 % Sodium Level 137 mmol/L 136 mmol/L Potassium Level 4.7 mmol/L 4.5 mmol/L Chloride Level 101 mmol/L 101 mmol/L Carbon Dioxide Level 29 mmol/L 30 mmol/L Anion Gap 7.0 mmol/L 5.0 mmol/L Blood Urea Nitrogen 34 mg/dl 33 mg/dl Creatinine 0.98 mg/dl 0.87 mg/dl Est Creatinine Clear Calc Drug Dose 38.0 ml/min 43.5 ml/min Estimated GFR () 60.1 69.4 Estimated GFR (Non- 51.9 59.9 BUN/Creatinine Ratio 34.7 38.2 Random Glucose 156 mg/dl 116 mg/dl Lactic Acid Level 1.6 mmol/L 1.3 mmol/L Calcium Level 6.6 mg/dl 6.6 mg/dl White Blood Count 13.33 K/uL Red Blood Count 2.52 M/uL Mean Corpuscular Volume 92.1 fL Mean Corpuscular Hemoglobin 31.3 pg Mean Corpuscular Hemoglobin Concent 34.1 g/dl RDW Standard Deviation 60.9 fL RDW Coefficient of Variation 18.1 % Platelet Count 173 K/uL Mean Platelet Volume 9.1 fL Estimated Average Glucose 97 mg/dl Hemoglobin A1c 5.0 % Phosphorus Level 3.9 mg/dl Magnesium Level 2.3 mg/dl Total Bilirubin 0.3 mg/dl Aspartate Amino Transf (AST/SGOT) 47 U/L Alanine Aminotransferase (ALT/SGPT) 33 U/L Alkaline Phosphatase 82 U/L Total Protein 3.9 gm/dl Albumin 1.4 gm/dl Globulin 2.5 gm/dl Albumin/Globulin Ratio 0.6 Procalcitonin 5.62 ng/mL Assessment and Plan Impression Patient is a 86 year old female currently admitted for sepsis (origin unknown for now but multiple possible sources including from IJ, ? pneumonia, L elbow infection, infectious colitis). She is seen for bloody BMs & anemia. Given hypotension, tachycardia, likely has ischemic colitis, though other differentials include: infectious colitis, IBD flare (less likely), diverticular bleeding, AVMs. She is currently on Cefepime, Flagyl, Vancomycin. WBC decreased from 18 to 13, Lactic acid normalized. BP improved, HR in 90s now. She received 1U PRBC transfusion yesterday, Hgb 7.9. RN reported dark stools overnight. She continues to deny any abd pain, n/v. CT abd/pelvis showed small bowel mesentery engorgement, edema ? non specific colitis vs ischemia. She has extensive artherosclerotic disease. CXR w bibasilar infiltrates. Cdiff negative, stool cx, blood & urine cx pending. Plans - F/U sepsis workup. Defer antibx choice to primary and ICU team. - Protonix 40mg IV BID - Cdiff negative, f/u stool cx. - Monitor H/H and transfuse prn - May continue Mesalamine 800mg daily for now. - Will discuss w Dr. Albrecht, likely no plans for endoscopy as LGI bleeding most likely from bowel ischemia. Plan to start on CL diet if no endoscopy plans for today. I have seen examined, and agree with plan as outlined above by NAOMI Gallagher -CT scan and history and presentation consistent ischemic colitis -Hb stable, no further bleeding -Supportive care -If any issues please call -Follow up with Dr[facility] Borges at [facility]
[2017-01-07] MEDS: PANTOprazole INJ 40 MG in SYRINGE 0 ML IV SCH ×2 (10:23→20:20)
--- NOTE | 2017-01-07 10:49 | Critical Care Progress Note ---
Critical Care Progress Note Date of Service Jan 07, 2017. ICU Day ICU Day Number: [address] Adkins Subjective [place] well today. Was alert and awake, knew where she was. Reported minimal pain in elbow. Objective GENERAL: Awake, alert, well-appearing, in no acute distress HENT: Normocephalic, atraumatic. Oropharynx unremarkable. EYES: Normal conjunctiva. Sclera non-icteric. NECK: Supple. No nuchal rigidity. FROM. No JVD. RESPIRATORY: Clear to auscultation. CARDIAC: Regular rate, normal rhythm. Extremities warm and well perfused. Pulses equal. ABDOMEN: Soft, non-distended. No tenderness to palpation. No rebound or guarding. No masses. LOWER EXTREMITIES: Calves are equal size bilaterally and non-tender. No edema. No discoloration. NEURO: Normal sensorium. No sensory or motor deficits noted. SKIN: Multiple dressings present over skin tears. 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 Neurologic prophylaxis: Not indicated Respiratory: Sats 100% on 2L RA Chest X-ray 01/06: Cardiomegaly. Bibasilar parenchymal infiltrates. Cardiovascular: CV drips: Remains off vasoactive medications Metoprolol restarted IV q4h. Rhythm: Atrial fibrillation EKG: A fib, 86bpm. QTc 457 ECHO: No previous in our system Fluids/Renal: IV Fluids: Fluids from intravenous medications Net Urine: +976mL yesterday. Martini: Present GI/Nutrition: CT A/P: See below Feeding: NPO, but will increase to Clear liquids by GI if not doing a scope Prophylaxis: On PPI Bowel movements: Dark overnight according to pt, not documented in chart Endocrine: Last 24 hour glucose: Ranging around 116. HbA1c 5.0% Insulin protocol: Yes; Drip: No Hematology: Hemoglobin 7.9, HCt 23.2 DVT prophylaxis: Heparin 5000 3 times a day Infectious Disease/Immunology: Tmax: 36.6 Antimicrobials: Cefepime day 2 IV Flagyl day 2 IV Vancomycin day 2 IV Cultures: Blood: No growth Urine: Less than 1000 CFU MRSA: CSF: No growth to date Immunosuppressive labs: NA Skin: Multiple wounds dressed Wound care consult CODE STATUS: FULL Resident Physician Supervision Note: Dr. Wong was resident physician during care of patient. I separately evaluated patient and did history and exam. I discussed the case with the resident and generally agree with the findings and plan. Continue broad-spectrum antibiotics for 48 hours await final blood cultures. The patient is doing remarkably well has cleared her lactic acidosis. At this time I'm axis suspecting that the patient had a low flow state to the GI tract given her vasculopathy. This could have caused her lactic acidosis. At this time I have not continuing her Pradaxa for another 24 hours, I have started her on DVT prophylaxis in the interim as a feel the bleeding risk outweighs embolic risk as it was no embolic phenomenon seen on the CTA. I suspect that the patient will probably have gastrointestinal tract sloughing over the next couple of days and would anticipate melanotic stools to start to occur however her H&H should remain stable. She has remained hemodynamically stable she is able to be downgraded from ICU status. Documented By: Jd Adkins DO Consults & Procedures Consultants: Cassandra Developer, Wound care Procedures: CT A/P IMPRESSION: 1. Small amount of abdominal and pelvic ascites. Anasarca. Small to moderate right and small left pleural effusions with associated opacities which favor atelectasis. 2. Small bowel mesentery vessel engorgement and edema, most evident within the right lower quadrant. No pneumatosis, free air or portal venous gas. No definite bowel wall thickening. This could reflect a nonspecific enteritis and bowel ischemia is within the differential. Close clinical monitoring is recommended. Discussed with Dr. Adkins at time of dictation. 3. Extensive atherosclerotic plaque of the abdominal aorta with severe stenosis versus occlusion of the proximal celiac axis, severe stenosis of the proximal SMA, severe stenosis of the bilateral renal arteries and suspected occlusion of the bilateral superficial femoral arteries. 4. Possible hypoenhancement of the anterior aspect of the spleen. This is probably artifactual although a splenic infarct could appear similar. Data Medications: Current Inpatient Medications Medications (Trade) Dose Ordered Sig/Nanda Route Start Time Stop Time Status Last Admin Dose Admin Norepinephrine Bitartrate 8 mg/ Dextrose 508 ml @ 0 mls/hr Q0M PRN IV 01/06/17 14:45 02/05/17 14:44 Pantoprazole Sodium/Syringe (Protonix Inj/ Syringe) 10 ml @ 5 mls/min BID@1100,2100 IV 01/07/17 11:00 02/06/17 10:59 01/07/17 10:23 5 MLS/MIN Ioversol (Optiray 320) 125 ml UD PRN IV 01/06/17 16:00 01/10/17 15:59 Miscellaneous Information 1 ea 1 ea UD N/A 01/06/17 16:23 02/05/17 16:22 Vancomycin HCl 1000 mg/Sodium Chloride 270 ml @ 125 mls/hr DAILY@1900 IV 01/06/17 19:00 02/17/17 18:59 01/06/17 18:23 125 MLS/HR Hydrocortisone Sodium Succinate 50 mg/Syringe 1 ml @ 4 mls/min Q8@0600,1400,2200 IV 01/06/17 22:00 02/05/17 21:59 01/07/17 06:15 4 MLS/MIN Cefepime HCl 2000 mg/Dextrose 112.5 ml @ 200 mls/hr Q12H IV 01/06/17 20:00 01/16/17 19:59 01/07/17 08:31 200 MLS/HR Metronidazole 500 mg/Prmx 100 ml @ 100 mls/hr Q8H IV 01/06/17 20:00 01/08/17 19:14 01/07/17 05:03 100 MLS/HR Sodium Chloride 1,000 ml @ 40 mls/hr Q24H IV 01/06/17 19:15 02/05/17 19:14 01/06/17 19:49 40 MLS/HR Sodium Chloride 500 ml @ 999 mls/hr Q31M PRN IV 01/06/17 19:15 Levothyroxine Sodium/Syringe (Synthroid Inj/ Syringe) 2.5 ml @ 2 mls/min DAILY@09 IV 01/07/17 09:00 02/06/17 08:59 01/07/17 08:57 2 MLS/MIN Insulin Aspart (novoLOG ASPART) SLIDING SCALE G... Q6 SC 01/07/17 00:00 02/06/17 00:00 Insulin Glargine (Lantus Solostar Pen) 4 unit BID SC 01/06/17 21:00 02/05/17 20:59 01/06/17 21:07 4 UNIT Metoprolol Tartrate (Lopressor Iv) 1.25 mg Q4 IV. 01/07/17 00:00 02/06/17 00:00 01/07/17 08:32 1.25 MG Heparin Sodium (Porcine) (Heparin 10 Unit/ ml 5 ml Flush) 5 ml PRN PRN FLUSH 01/06/17 23:45 02/05/17 23:44 Heparin Sodium (Porcine) (Heparin Sq 5000 Unit/0.5ml) 5,000 unit Q8H SQ 01/07/17 09:00 02/06/17 08:59 01/07/17 08:59 5,000 UNIT I & O: 24-Hour Column 01/07/17 08:00 Intake Total 1625 ml Output Total 425 ml Balance 1200 ml Vital Signs: Date Time Temp Pulse Resp B/P Pulse Ox O2 Delivery O2 Flow Rate FiO2 01/07/17 10:00 92 20 120/69 100 Nasal Cannula 2.0 01/07/17 08:32 85 122/82 01/07/17 08:00 36.6 87 18 122/82 100 Nasal Cannula 2.0 01/07/17 08:00 100 Nasal Cannula 2.0 01/07/17 06:00 91 14 112/66 100 Nasal Cannula 2.0 01/07/17 05:04 106 121/70 01/07/17 04:00 36.7 94 20 105/67 100 Nasal Cannula 2.0 01/07/17 04:00 99 Nasal Cannula 3.0 01/07/17 02:00 94 14 92/68 100 Nasal Cannula 3.0 01/07/17 00:01 36.6 113 18 124/77 100 Nasal Cannula 3.0 01/07/17 00:01 95 124/72 01/06/17 23:59 99 Nasal Cannula 3.0 01/06/17 22:03 37.1 01/06/17 22:02 116 24 99 01/06/17 22:00 111 20 109/74 100 01/06/17 21:47 120 19 100 01/06/17 21:32 107 20 100 01/06/17 21:17 127 29 97 01/06/17 21:02 104 21 100 01/06/17 20:47 116 21 100 01/06/17 20:32 122 24 100 01/06/17 20:17 111 20 100 01/06/17 20:02 106 21 100 01/06/17 20:00 100 21 119/80 100 01/06/17 20:00 Nasal Cannula 3.0 01/06/17 20:00 36.9 01/06/17 19:47 107 21 100 01/06/17 19:32 110 21 100 01/06/17 19:10 36.4 107 22 113/87 100 01/06/17 18:31 116 23 100 01/06/17 18:30 109 22 111/54 100 01/06/17 18:16 106 40 115/66 100 01/06/17 18:01 101 20 145/55 100 01/06/17 17:51 36.9 01/06/17 17:46 105 22 100 01/06/17 17:45 109 18 115/78 100 01/06/17 17:30 109 18 91/66 100 01/06/17 17:16 135 15 86/71 01/06/17 17:15 140 20 93 01/06/17 17:00 118 24 88/58 100 01/06/17 17:00 36.3 01/06/17 16:45 124 25 106/84 99 01/06/17 16:38 112 26 76/61 100 01/06/17 16:30 115 26 95 01/06/17 16:30 36.2 01/06/17 16:15 116 27 98 01/06/17 16:01 96 25 141/45 97 01/06/17 16:00 36.5 125 24 141/45 96 Nasal Cannula 3.0 01/06/17 16:00 36.5 01/06/17 16:00 119 26 97 01/06/17 15:31 130 30 /47 01/06/17 15:30 178 27 80 01/06/17 15:30 36.5 01/06/17 14:59 124 24 95/66 98 Nasal Cannula 3.0 01/06/17 14:22 115 26 103/64 94 Nasal Cannula 2.0 01/06/17 14:09 126 26 117/67 94 Nasal Cannula 2.0 01/06/17 14:01 124 24 99/50 94 Nasal Cannula 2.0 01/06/17 13:47 130 24 99/46 94 Nasal Cannula 2.0 01/06/17 13:41 119 24 99/62 95 Nasal Cannula 01/06/17 13:16 135 26 104/57 97 Nasal Cannula 2.0 01/06/17 13:06 120 26 85/60 99 Nasal Cannula 2.0 01/06/17 12:59 116 20 109/69 99 Nasal Cannula 2.0 01/06/17 12:42 130 26 90/51 95 Nasal Cannula 2.0 01/06/17 12:06 123 26 94/49 98 Nasal Cannula 2.0 01/06/17 11:53 132 24 103/70 98 Nasal Cannula 2.0 01/06/17 11:52 98 Nasal Cannula 2.0 01/06/17 11:44 116 24 80/58 95 Room Air 01/06/17 11:34 132 24 76/54 95 01/06/17 11:22 123 26 96/53 95 Room Air 01/06/17 10:54 119 01/06/17 10:53 36.6 136 24 114/68 94 Room Air 01/06/17 10:53 94 Room Air Laboratory Results: Last 24 Hours Test 01/06/17 11:30 01/06/17 11:40 01/06/17 11:52 01/06/17 12:15 White Blood Count 18.57 K/uL Red Blood Count 2.46 M/uL Hemoglobin 8.2 g/dL Hematocrit 25.1 % Mean Corpuscular Volume 102.0 fL Mean Corpuscular Hemoglobin 33.3 pg Mean Corpuscular Hemoglobin Concent 32.7 g/dl Platelet Count 276 K/uL Mean Platelet Volume 9.6 fL Neutrophils (%) (Auto) 84.4 % Lymphocytes (%) (Auto) 5.1 % Monocytes (%) (Auto) 4.2 % Eosinophils (%) (Auto) 0.1 % Basophils (%) (Auto) 0.2 % Neutrophils # (Auto) 15.69 K/uL Lymphocytes # (Auto) 0.94 K/uL Monocytes # (Auto) 0.78 K/uL Eosinophils # (Auto) 0.01 K/uL Basophils # (Auto) 0.03 K/uL RDW Standard Deviation 58.4 fL RDW Coefficient of Variation 15.5 % Immature Granulocyte % (Auto) 6.0 % Immature Granulocyte # (Auto) 1.12 K/uL Toxic Granulation 1+ Echinocytes 1+ Prothrombin Time 12.7 SECONDS Prothromb Time International Ratio 1.2 Activated Partial Thromboplast Time 35.2 SECONDS Partial Thromboplastin Ratio 1.4 Sodium Level 134 mmol/L Potassium Level 4.9 mmol/L Chloride Level 99 mmol/L Carbon Dioxide Level 20 mmol/L Anion Gap 15.0 mmol/L Blood Urea Nitrogen 31 mg/dl Creatinine 1.10 mg/dl Est Creatinine Clear Calc Drug Dose 29.8 ml/min Estimated GFR () 52.3 Estimated GFR (Non- 45.1 BUN/Creatinine Ratio 28.1 Random Glucose 252 mg/dl Calcium Level 6.7 mg/dl Total Bilirubin 0.4 mg/dl Direct Bilirubin 0.1 mg/dl Aspartate Amino Transf (AST/SGOT) 86 U/L Alanine Aminotransferase (ALT/SGPT) 37 U/L Alkaline Phosphatase 126 U/L Ammonia 28.0 umol/L Total Creatine Kinase 27 U/L Creatine Kinase MB 1.4 ng/ml Creatine Kinase MB Ratio 5.2 Troponin I 0.034 ng/ml Total Protein 3.9 gm/dl Albumin 1.4 gm/dl Lipase 166 U/L Thyroid Stimulating Hormone (TSH) 5.770 uIu/ml Bedside Lactic Acid Venous 7.87 mmol/L Arterial Blood pH 7.44 Arterial Blood Partial Pressure CO2 32 mmHg Arterial Blood Partial Pressure O2 81 mm/Hg Arterial Blood HCO3 21 mmol/L Arterial Blood Oxygen Saturation 92.9 % Arterial Blood Base Excess -2.8 mEq/L Arterial Blood Gas Delivery POS Baldo Test ROOM AIR Urine Color YELLOW Urine Appearance SL CLOUDY Urine pH 5.0 Urine Specific [place] >= 1.030 Urine Protein 1+ Urine Glucose (UA) NEG Urine Ketones TRACE Urine Occult Blood NEG Urine Nitrite NEG Urine Bilirubin NEG Urine Urobilinogen NEG Urine Leukocyte Esterase NEG Urine RBC 0-4 /hpf Urine WBC 1-5 /hpf Urine Epithelial Cells 0-5 /lpf Urine Amorphous Sediment PRESENT Urine Bacteria NEG Urine Yeast BUD W/ HYPHAE Test 01/06/17 16:02 01/06/17 16:29 01/06/17 16:47 01/06/17 20:30 Bedside Glucose 189 mg/dl Hemoglobin 7.9 g/dL 8.2 g/dL Hematocrit 23.6 % 24.2 % Sodium Level 135 mmol/L 134 mmol/L Potassium Level 4.8 mmol/L 4.7 mmol/L Chloride Level 99 mmol/L 99 mmol/L Carbon Dioxide Level 25 mmol/L 28 mmol/L Anion Gap 11.0 mmol/L 7.0 mmol/L Blood Urea Nitrogen 35 mg/dl 35 mg/dl Creatinine 1.00 mg/dl 0.90 mg/dl Est Creatinine Clear Calc Drug Dose 37.2 ml/min 41.4 ml/min Estimated GFR () 58.7 66.6 Estimated GFR (Non- 50.6 57.5 BUN/Creatinine Ratio 35.3 38.6 Random Glucose 233 mg/dl 187 mg/dl Lactic Acid Level 3.9 mmol/L 2.0 mmol/L Calcium Level 6.7 mg/dl 6.5 mg/dl Procalcitonin 2.78 ng/mL Random Vancomycin Level 12.4 mcg/ml Magnesium Level 1.9 mg/dl Test 01/06/17 23:45 01/07/17 01:08 01/07/17 05:34 Bedside Glucose 179 mg/dl Hemoglobin 7.9 g/dL 7.9 g/dL Hematocrit 23.4 % 23.2 % Sodium Level 137 mmol/L 136 mmol/L Potassium Level 4.7 mmol/L 4.5 mmol/L Chloride Level 101 mmol/L 101 mmol/L Carbon Dioxide Level 29 mmol/L 30 mmol/L Anion Gap 7.0 mmol/L 5.0 mmol/L Blood Urea Nitrogen 34 mg/dl 33 mg/dl Creatinine 0.98 mg/dl 0.87 mg/dl Est Creatinine Clear Calc Drug Dose 38.0 ml/min 43.5 ml/min Estimated GFR () 60.1 69.4 Estimated GFR (Non- 51.9 59.9 BUN/Creatinine Ratio 34.7 38.2 Random Glucose 156 mg/dl 116 mg/dl Lactic Acid Level 1.6 mmol/L 1.3 mmol/L Calcium Level 6.6 mg/dl 6.6 mg/dl White Blood Count 13.33 K/uL Red Blood Count 2.52 M/uL Mean Corpuscular Volume 92.1 fL Mean Corpuscular Hemoglobin 31.3 pg Mean Corpuscular Hemoglobin Concent 34.1 g/dl RDW Standard Deviation 60.9 fL RDW Coefficient of Variation 18.1 % Platelet Count 173 K/uL Mean Platelet Volume 9.1 fL Estimated Average Glucose 97 mg/dl Hemoglobin A1c 5.0 % Phosphorus Level 3.9 mg/dl Magnesium Level 2.3 mg/dl Total Bilirubin 0.3 mg/dl Aspartate Amino Transf (AST/SGOT) 47 U/L Alanine Aminotransferase (ALT/SGPT) 33 U/L Alkaline Phosphatase 82 U/L Total Protein 3.9 gm/dl Albumin 1.4 gm/dl Globulin 2.5 gm/dl Albumin/Globulin Ratio 0.6 Procalcitonin 5.62 ng/mL Resident Tracking Resident Involvement: Resident Care Provided Care Provided: Adult Hospital Medicine (ICU)
--- NOTE | 2017-01-07 14:29 | Progress Note ---
Internal Med Progress Note Date of Service: Jan 07, 2017. Provider Documentation: SUBJECTIVE: Patient is seen and examined at bedside. She states she is doing much better today. Denies any history of chest pain, SOB, nausea, vomiting, abd pain, blood in stools or left elbow pain. OBJECTIVE: Vital Signs-as noted below Physical Exam: General Appearance:Moderately built and nourished, no apparent distress Head: normocephalic, Atraumatic + hearing loss Eyes: normal inspection, EOMI, PERRLA Neck: supple, Trachea midline Respiratory/Chest: Normal breath sounds, CTA Cardiovascular: Irregular, No murmur Abdomen/GI:Soft, Non tender, Bowel sounds present, No guarding/rigidity/ organomegaly Extremities/Musculoskelatal:normal inspection, no calf tenderness, + Left elbow in bandage, + b/l edema Neurologic/Psych:AAOX3, grossly no focal neurological deficits Skin: normal color, warm Lab data as noted below. ASSESSMENT & PLAN: SEVERE SEPSIS / ISCHEMIC COLITIS Patient presented with generalized weakness, AMS and hypotension, Also had leukocytosis, lactic acidosis Patient was on ciprofloxacin and IV vancomycin for Acinetobacter baumannii, Coag neg Staph, and Strep sp prior to admission Likely source: L Olecranon bursitis, Ischemic bowel, colitis, ?HCAP S/P IV fluids Stool for C diff: Negative Urine Culture: Negative MRSA Screen: Negative Blood culture: pending Continue broad spectrum antibiotics: IV vancomycin and cefepime May need 3 weeks of antibiotics per ID Appreciate ID input Currently on IV hydrocortisone: chronic steroid therapy. Plan to taper to home dose when able CT abd: Likely Ischemic colitis Continue supportive care, Monitor Hb ALTERED MENTAL STATUS Likely metabolic encephalopathy secondary to sepsis. Head CT: No acute changes Resolved LOWER GI BLEED ISCHEMIC COLITIS Presented with Lower GI bleeding while in ED. 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 RA). Currently on IV hydrocortisone Plan to titrate as able Will resume home maintenance therapy as able DM II A1C: 5.0 Continue ISS, Lantus, accu checks HYPOTHYROIDISM TSH 5.7. Continue levothyroxine ANEMIA Multifactorial: Iron deficiency and Acute blood loss anemia. Transfuse PRN Monitor CHRONIC EDEMA H/O chronic lymphedema. Contributing factors: Hypoalbuminemia, CHF Monitor H/O CVA: No acute issues DVT PX: Heparin SQ Plan to restart Pradaxa when able CODE STATUS FULL CODE DISPOSITION Plan to transfer to Telemetry PROCEDURES: CT ABD: 1. Small amount of abdominal and pelvic ascites. Anasarca. Small to moderate right and small left pleural effusions with associated opacities which favor atelectasis. 2. Small bowel mesentery vessel engorgement and edema, most evident within the right lower quadrant. No pneumatosis, free air or portal venous gas. No definite bowel wall thickening. This could reflect a nonspecific enteritis and bowel ischemia is within the differential. Close clinical monitoring is recommended. Discussed with Dr. Adkins at time of dictation. 3. Extensive atherosclerotic plaque of the abdominal aorta with severe stenosis versus occlusion of the proximal celiac axis, severe stenosis of the proximal SMA, severe stenosis of the bilateral renal arteries and suspected occlusion of the bilateral superficial femoral arteries. 4. Possible hypoenhancement of the anterior aspect of the spleen. This is probably artifactual although a splenic infarct could appear similar. CT head: Senescent changes as above with no hemorrhage, mass effect, or evidence of acute territorial ischemia by CT criteria. Vital Signs: Date Time Temp Pulse Resp B/P Pulse Ox O2 Delivery O2 Flow Rate FiO2 01/07/17 18:23 36.9 98 16 123/81 96 Room Air 01/07/17 16:16 89 131/77 01/07/17 16:00 100 Nasal Cannula 2.0 01/07/17 16:00 87 21 131/77 100 Nasal Cannula 2.0 01/07/17 14:00 84 16 107/69 100 Nasal Cannula 2.0 01/07/17 12:14 91 129/69 01/07/17 12:00 84 17 129/69 100 Nasal Cannula 2.0 01/07/17 12:00 100 Nasal Cannula 2.0 01/07/17 10:00 92 20 120/69 100 Nasal Cannula 2.0 01/07/17 08:32 85 122/82 01/07/17 08:00 36.6 87 18 122/82 100 Nasal Cannula 2.0 01/07/17 08:00 100 Nasal Cannula 2.0 01/07/17 06:00 91 14 112/66 100 Nasal Cannula 2.0 01/07/17 05:04 106 121/70 01/07/17 04:00 36.7 94 20 105/67 100 Nasal Cannula 2.0 01/07/17 04:00 99 Nasal Cannula 3.0 01/07/17 02:00 94 14 92/68 100 Nasal Cannula 3.0 01/07/17 00:01 36.6 113 18 124/77 100 Nasal Cannula 3.0 01/07/17 00:01 95 124/72 01/06/17 23:59 99 Nasal Cannula 3.0 01/06/17 22:03 37.1 01/06/17 22:02 116 24 99 01/06/17 22:00 111 20 109/74 100 01/06/17 21:47 120 19 100 01/06/17 21:32 107 20 100 01/06/17 21:17 127 29 97 01/06/17 21:02 104 21 100 01/06/17 20:47 116 21 100 01/06/17 20:32 122 24 100 01/06/17 20:17 111 20 100 01/06/17 20:02 106 21 100 01/06/17 20:00 100 21 119/80 100 01/06/17 20:00 Nasal Cannula 3.0 01/06/17 20:00 36.9 01/06/17 19:47 107 21 100 01/06/17 19:32 110 21 100 Lab Results: Results Past 24 Hours Test 01/06/17 20:30 01/06/17 23:45 01/07/17 01:08 01/07/17 05:34 Range/Units Hemoglobin 8.2 7.9 7.9 12.0-16.0 g/dL Hematocrit 24.2 23.4 23.2 37-47 % Sodium Level 134 137 136 136-145 mmol/L Potassium Level 4.7 4.7 4.5 3.5-5.1 mmol/L Chloride Level 99 101 101 98-107 mmol/L Carbon Dioxide Level 28 29 30 21-32 mmol/L Anion Gap 7.0 7.0 5.0 3-11 mmol/L Blood Urea Nitrogen 35 34 33 7-18 mg/dl Creatinine 0.90 0.98 0.87 0.60-1.20 mg/dl Est Creatinine Clear Calc Drug Dose 41.4 38.0 43.5 ml/min Estimated GFR () 66.6 60.1 69.4 Estimated GFR (Non- 57.5 51.9 59.9 BUN/Creatinine Ratio 38.6 34.7 38.2 10-20 Random Glucose 187 156 116 70-99 mg/dl Lactic Acid Level 2.0 1.6 1.3 0.4-2.0 mmol/L Calcium Level 6.5 6.6 6.6 8.5-10.1 mg/dl Magnesium Level 1.9 2.3 1.8-2.4 mg/dl Bedside Glucose 179 70-90 mg/dl White Blood Count 13.33 4.8-10.8 K/uL Red Blood Count 2.52 4.2-5.4 M/uL Mean Corpuscular Volume 92.1 80-100 fL Mean Corpuscular Hemoglobin 31.3 25-34 pg Mean Corpuscular Hemoglobin Concent 34.1 32-36 g/dl RDW Standard Deviation 60.9 36.4-46.3 fL RDW Coefficient of Variation 18.1 11.5-14.5 % Platelet Count 173 130-400 K/uL Mean Platelet Volume 9.1 7.4-10.4 fL Estimated Average Glucose 97 mg/dl Hemoglobin A1c 5.0 4.5-5.6 % Phosphorus Level 3.9 2.5-4.9 mg/dl Total Bilirubin 0.3 0.2-1 mg/dl Aspartate Amino Transf (AST/SGOT) 47 15-37 U/L Alanine Aminotransferase (ALT/SGPT) 33 12-78 U/L Alkaline Phosphatase 82 45-117 U/L Total Protein 3.9 6.4-8.2 gm/dl Albumin 1.4 3.4-5.0 gm/dl Globulin 2.5 2.5-4.0 gm/dl Albumin/Globulin Ratio 0.6 0.9-2 Procalcitonin 5.62 0-0.5 ng/mL Test 01/07/17 12:15 01/07/17 18:28 Range/Units Bedside Glucose 97 191 70-90 mg/dl Microbiology Results 01/06/17 Blood Culture, Received Pending
--- NOTE | 2017-01-07 15:27 | Progress Note ---
Progress Note Date of Service Jan 07, 2017. Progress Note ID Consult Dictated #[id number] A/P: 1. Sepsis - ? source, elbow, line infection (blood cultures pending), HCAP ( less likely, no symptoms), UTI (doubt as UA negative and pt without symptoms), GI bleed/ischemia -No signs of wound infection on exam - previous culture results reviewed -Agree with current abx, follow blood cultures, if + will need new line -Will likely require 21 days Iv abx for bursitis L elbow (previously diagnosed) -Continue supportive care, thank you
--- NOTE | 2017-01-07 16:39 | INFECT. DISEASE CONSULTATION ---
DATE OF CONSULTATION: 01/07/2017 REQUESTING PHYSICIAN: Dr. Malloy. HISTORY OF PRESENT ILLNESS: This is an 86-year-old female who was admitted from a local assisted facility after she was discharged from [facility]. Per the H\T\P she was diagnosed with olecranon bursitis of the left elbow and was taken to the operating room for washout on December 31. Cultures from the elbow at that time grew acinetobacter, coagulase negative staph and strep species. She was discharged on January 03 on Cipro and vancomycin. She had been doing well, but states she was having fatigue at the [facility]. She states that physical therapy came in to begin therapy with her, but she was feeling weak and believes she had a syncopal episode upon standing to work with physical therapy. She states she does not remember getting on the ambulance, but does remember the ride here. She has had episodes of lower GI bleeding during this admission and her hemoglobin was low at 7.9. She did have a CAT scan of the abdomen which showed diverticulosis and questionable areas of ischemia in addition to occlusion of her superficial femoral arteries. She is being followed by GI. She currently is on a clear liquid diet and states she is hungry. She denies any nausea, vomiting, diarrhea or abdominal pain. She does not believe she has had any additional episodes of black stool. She denies any chest pain, cough, shortness of breath or wheezing. She currently denies any pain in the left elbow and states overall this is feeling significantly better with improved range of motion. She was placed empirically on vancomycin, cefepime and Flagyl. She is also getting pressor therapy and IV steroids. She did have stool sent for C. diff. Cultures are pending. A urinalysis did show 10-30 wbc's with significant episode of cells but also yeast was noted. She initially had a leukocytosis of 18.5, this has decreased to 13.3. Her C. diff is negative. Infectious diseases was asked to see this patient in consultation for sepsis. She currently has no complaints other than stating that she is hungry and would like to eat. Her acinetobacter was reportedly sensitive to cephalosporin antibiotics. The coagulase negative staph as well as strep species are both sensitive to vancomycin and she remains on these antibiotics. A chest x-ray was done and shows questionable bilateral infiltration versus atelectasis. She has no urinary complaints. She does have a right IJ catheter in place at this time, which was placed prior to her admission to [facility]. She was receiving antibiotics through this prior to this admission. PAST MEDICAL HISTORY: Significant for osteoarthritis, asthma, coronary artery disease, chronic steroid use, GERD, CHF, history of CVA, hyperlipidemia, hypertension, hypothyroidism, ulcerative colitis, aFib, and type 2 diabetes. PAST SURGICAL HISTORY: Significant for cataract surgery, cholecystectomy, CABG, hysterectomy and recent washout of her left elbow. SOCIAL HISTORY: Negative for tobacco use, alcohol use. She currently is a resident at [facility]. ALLERGIES: She has no known drug allergies. CURRENT MEDICATIONS: Include Protonix, Synthroid, subQ heparin, insulin, Lopressor, hydrocortisone, Lantus, cefepime, metronidazole, vancomycin, and norepinephrine. PHYSICAL EXAMINATION: VITAL SIGNS: She has been afebrile since admission to the hospital, pulse 84, respiratory rate 16, blood pressure 107/69 and oxygen saturation is 100% on 2 liters nasal cannula. GENERAL: She is awake, alert and oriented and in no acute distress on my examination. HEENT: Mucous membranes are moist. Dentition is poor. Extraocular muscles are intact. HEART: Irregular, murmur is noted. LUNGS: Clear bilaterally. ABDOMEN: Soft, nontender and nondistended. There is no lower extremity edema. SKIN: Without rash. Right IJ catheter is in place that is clean, dry and intact. EXTREMITIES: Examination exam of the left elbow dressing is clean, dry and intact. There is no surrounding erythema, induration or tenderness. Sutures are intact. Incision is closed. There is no bleeding or drainage. LABORATORY STUDIES: Today reveal a white blood cell count of 13.3 down from 18.5 yesterday, hemoglobin is 7.9, platelets are 173. Chemistry panel reveals a sodium of 136, potassium 4.5, chloride 101, bicarbonate 30, BUN 33, creatinine 0.8, glucose is 116. LFTs are within normal limits. Procalcitonin is elevated at 5.6. Urinalysis initially had 10-30 wbc's with no bacteria and greater than 30 epithelial cells. Yeasts were identified. A repeat urinalysis was unremarkable, but again yeast was identified. A random vancomycin level was 12.4. C. diff was negative on the , the stool culture is negative. The urine culture is negative. Blood cultures from the are pending. IMAGING DATA: Chest x-ray done today again shows bilateral infiltrate. Abdomen and pelvis CT done in the ER show pelvic ascites, effusions, small bowel mesentery vessel edema in the right lower quadrant, nonspecific versus ischemia, arthrosclerosis of the abdominal aorta with severe stenosis of the celiac access, proximal SMA, severe stenosis of the bilateral renal arteries and suspected occlusion of bilateral superficial femoral arteries. CT of the head on arrival was unremarkable for acute disease. ASSESSMENT AND PLAN: 1. Olecranon bursitis, currently on intravenous antibiotics, status post washout prior to this admission. She certainly is being covered with adequate antibiotics for organisms obtained in the operating room. She could continue with these empirically. Her Clostridium difficile was negative. She is on antibiotics, I would also cover for suspected healthcare associated pneumonia; however, she has no respiratory complaints and is comfortable on 2 liters nasal cannula. Certainly underlying infection could be entertained. Blood cultures are pending. I doubt that there is a urine infection, she had no bacteria and her UA is negative. There were yeast seen initially, but this did not grow on culture. I would not add any antifungal therapy. Also of concern is gastrointestinal bleeding and severe vessel occlusion which could likely be secondary to ischemic bowel. This will need to be monitored closely. She does not have any findings of an acute abdomen on my examination today. At this time, I would continue vancomycin and cefepime empirically, especially with recent cultures growing coagulase negative staph, strep and acinetobacter. She will likely need 21 days total antibiotics for treatment of this infection. On my examination, I do not find any evidence of worsening elbow infection as her incision is clean, dry and intact.
[2017-01-07] MEDS ORDERED: NURSING VERBAL MED ORDER ONE (18:45)
[2017-01-07] MEDS: VANCOMYCIN INJ 1,000 MG in SODIUM CHLORIDE 0.9% 250ML 250 ML IV SCH (20:06)
[2017-01-07] MEDS: SODIUM CHLORIDE 0.9% 1000ML 1,000 ML IV SCH (20:10)
[2017-01-07 21:20] LABS: HEMATOCRIT 21.2 % (37-47)
[2017-01-08] VITALS (8 sets, daily range): BP systolic 120–156; BP diastolic 63–98; PULSE 86–110; TEMP 36.6–37.2; O2SAT 92–98
[2017-01-08] MEDS: METOPROLOL TARTRATE 1 MG/ML VIAL IV. SCH ×4 (00:14→11:36)
[2017-01-08] MEDS: HEPARIN SOD 5000 UNIT/0.5 ML CARP SQ SCH ×3 (00:29→17:00)
[2017-01-08] MEDS: METRONIDAZOLE / NSS 500 MG in PREMIXED NSS 100 ML IV SCH ×2 (04:14→11:36)
[2017-01-08] MEDS: LEVOTHYROXINE 88 MCG TAB PO SCH (06:00)
[2017-01-08] MEDS: HYDROCORTISONE IV 50 MG in SYRINGE 0 ML IV SCH ×2 (06:00→20:43)
[2017-01-08 06:14] LABS: HEMATOCRIT 25.7 % (37-47); MEAN CELL VOLUME 91.1 fL (80-100); MEAN CORPUSCULAR HEMOGLOBIN 31.2 pg (25-34); MEAN CORPUSCULAR HGB CONC 34.2 g/dl (32-36); MEAN PLATELET VOLUME 9.3 fL (7.4-10.4); PLATELET COUNT 154 K/uL (130-400); RED BLOOD COUNT 2.82 M/uL (4.2-5.4); WHITE BLOOD COUNT 12.88 K/uL (4.8-10.8)
[2017-01-08 06:52] LABS: ALB/GLOB RATIO 0.6 (0.9-2); BUN/CREATININE RATIO 32.5 (10-20); CALCIUM 6.9 mg/dl (8.5-10.1); CREATININE 0.82 mg/dl (0.60-1.20); MAGNESIUM 2.3 mg/dl (1.8-2.4); POTASSIUM 3.5 mmol/L (3.5-5.1)
[2017-01-08] MEDS: INSULIN ASPART 100 UNITS/ML 3 ML PEN SC SCH ×4 (07:46→20:57)
[2017-01-08] MEDS: CEFEPIME IV 2,000 MG in DEXTROSE 5% 100ML 100 ML IV SCH ×2 (07:58→20:42)
[2017-01-08] MEDS: INSULIN GLARGINE SOLOSTAR 100 UNITS/ML 3 ML PEN SC SCH ×2 (08:06→20:48)
--- NOTE | 2017-01-08 08:21 | DIAGNOSTIC IMAGING REPORT ---
CHEST ONE VIEW PORTABLE HISTORY: sepsis COMPARISON: Chest 01/07/2017. FINDINGS: The heart remains enlarged. There are poststernotomy changes. No pneumothorax. Right jugular catheter terminates in the SVC. Mild pulmonary vascular congestion without overt edema. Small bilateral pleural effusions persist. IMPRESSION: 1. No change in the small bilateral pleural effusions and cardiomegaly. 2. Mild central pulmonary vascular congestion without overt edema. Electronically signed by: Tim Webster M.D. 01/08/2017 8:18 AM Dictated Date/Time: 01/08/2017 8:17 AM
[2017-01-08] MEDS: PANTOprazole INJ 40 MG in SYRINGE 0 ML IV SCH ×2 (11:29→20:42)
[2017-01-08] MEDS ORDERED: METOPROLOL SUCC 25MG EXT REL TAB PO ONE (14:15)
--- NOTE | 2017-01-08 14:21 | Progress Note ---
Internal Med Progress Note Date of Service: Jan 08, 2017. Provider Documentation: SUBJECTIVE: Patient is seen and examined at bedside. States feeling tired today. Has SOB, cough. Denies any chest pain, bleeding, nausea, vomiting, abd pain. Offers no other complaints. Family at bedside. OBJECTIVE: Vital Signs-as noted below Physical Exam: General Appearance:Moderately built and nourished, no apparent distress Head: normocephalic, Atraumatic + hearing loss Eyes: normal inspection, EOMI, PERRLA Neck: supple, Trachea midline Respiratory/Chest: Normal breath sounds, B/L wheezing Cardiovascular: Irregularly irregular, No murmur Abdomen/GI:Soft, Non tender, Bowel sounds present, No guarding/rigidity/ organomegaly Extremities/Musculoskelatal:normal inspection, no calf tenderness, + Left elbow in bandage, + b/l edema Neurologic/Psych:AAOX3, grossly no focal neurological deficits Skin: normal color, warm Lab data as noted below. ASSESSMENT & PLAN: SEVERE SEPSIS / ISCHEMIC COLITIS Patient presented with generalized weakness, AMS and hypotension, Also had leukocytosis, lactic acidosis Patient was on ciprofloxacin and IV vancomycin for Acinetobacter baumannii, Coag neg Staph, and Strep sp prior to admission Likely source: L Olecranon bursitis, Ischemic bowel, colitis, ?HCAP-less likely S/P IV fluids Stool for C diff: Negative Urine Culture: Negative MRSA Screen: Negative Blood culture: No growth to date Continue broad spectrum antibiotics: IV vancomycin and cefepime May need 3 weeks of antibiotics per ID Appreciate ID input Currently on IV hydrocortisone: chronic steroid therapy. Will taper to home dose as able CT abd: Likely Ischemic colitis Continue supportive care Monitor Hb :8.8 today (Received 1 unit PRBC overnight) Advance diet DC IVF as clinically seemed to be developing volume overload Will give a dose of IV lasix ALTERED MENTAL STATUS Likely metabolic encephalopathy secondary to sepsis. Head CT: No acute changes Resolved LOWER GI BLEED ISCHEMIC COLITIS Presented with Lower GI bleeding while in ED. 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 RA). Continue IV hydrocortisone taper Will resume home maintenance therapy as able DM II A1C: 5.0 Continue ISS, Lantus, accu checks HYPOTHYROIDISM TSH 5.7. Continue levothyroxine ANEMIA Multifactorial: Iron deficiency and Acute blood loss anemia. Transfuse PRN Monitor CHRONIC EDEMA H/O chronic lymphedema. Contributing factors: Hypoalbuminemia, CHF Monitor H/O CVA: No acute issues DVT PX: Heparin SQ Plan to restart Pradaxa when able CODE STATUS FULL CODE DISPOSITION Plan to transfer to Telemetry PROCEDURES: CT ABD: 1. Small amount of abdominal and pelvic ascites. Anasarca. Small to moderate right and small left pleural effusions with associated opacities which favor atelectasis. 2. Small bowel mesentery vessel engorgement and edema, most evident within the right lower quadrant. No pneumatosis, free air or portal venous gas. No definite bowel wall thickening. This could reflect a nonspecific enteritis and bowel ischemia is within the differential. Close clinical monitoring is recommended. Discussed with Dr. Adkins at time of dictation. 3. Extensive atherosclerotic plaque of the abdominal aorta with severe stenosis versus occlusion of the proximal celiac axis, severe stenosis of the proximal SMA, severe stenosis of the bilateral renal arteries and suspected occlusion of the bilateral superficial femoral arteries. 4. Possible hypoenhancement of the anterior aspect of the spleen. This is probably artifactual although a splenic infarct could appear similar. CT head: Senescent changes as above with no hemorrhage, mass effect, or evidence of acute territorial ischemia by CT criteria. Vital Signs: Date Time Temp Pulse Resp B/P Pulse Ox O2 Delivery O2 Flow Rate FiO2 01/08/17 12:00 Room Air 01/08/17 11:46 37.0 96 18 150/98 95 01/08/17 11:36 122 150/58 01/08/17 08:00 Room Air 01/08/17 07:58 106 139/63 01/08/17 07:25 36.8 86 18 139/63 95 01/08/17 04:15 77 01/08/17 04:00 Room Air 01/08/17 03:20 36.6 89 18 144/80 94 Room Air 01/08/17 00:14 90 01/08/17 00:11 36.6 87 20 120/77 92 01/07/17 23:59 Room Air 01/07/17 23:12 36.8 90 18 125/81 92 01/07/17 22:49 36.9 96 20 123/80 97 01/07/17 22:25 36.6 90 20 146/81 95 01/07/17 20:21 88 01/07/17 20:00 Room Air 01/07/17 18:23 36.9 98 16 123/81 96 Room Air 01/07/17 16:16 89 131/77 01/07/17 16:00 100 Nasal Cannula 2.0 01/07/17 16:00 87 21 131/77 100 Nasal Cannula 2.0 Lab Results: Results Past 24 Hours Test 01/07/17 18:28 01/07/17 20:25 01/07/17 20:50 01/08/17 05:59 Range/Units Bedside Glucose 191 137 70-90 mg/dl Hemoglobin 7.1 8.8 12.0-16.0 g/dL Hematocrit 21.2 25.7 37-47 % White Blood Count 12.88 4.8-10.8 K/uL Red Blood Count 2.82 4.2-5.4 M/uL Mean Corpuscular Volume 91.1 80-100 fL Mean Corpuscular Hemoglobin 31.2 25-34 pg Mean Corpuscular Hemoglobin Concent 34.2 32-36 g/dl RDW Standard Deviation 58.2 36.4-46.3 fL RDW Coefficient of Variation 17.5 11.5-14.5 % Platelet Count 154 130-400 K/uL Mean Platelet Volume 9.3 7.4-10.4 fL Sodium Level 138 136-145 mmol/L Potassium Level 3.5 3.5-5.1 mmol/L Chloride Level 104 98-107 mmol/L Carbon Dioxide Level 27 21-32 mmol/L Anion Gap 7.0 3-11 mmol/L Blood Urea Nitrogen 27 7-18 mg/dl Creatinine 0.82 0.60-1.20 mg/dl Est Creatinine Clear Calc Drug Dose 46.1 ml/min Estimated GFR () 74.6 Estimated GFR (Non- 64.3 BUN/Creatinine Ratio 32.5 10-20 Random Glucose 107 70-99 mg/dl Calcium Level 6.9 8.5-10.1 mg/dl Phosphorus Level 3.0 2.5-4.9 mg/dl Magnesium Level 2.3 1.8-2.4 mg/dl Total Bilirubin 0.4 0.2-1 mg/dl Aspartate Amino Transf (AST/SGOT) 29 15-37 U/L Alanine Aminotransferase (ALT/SGPT) 27 12-78 U/L Alkaline Phosphatase 65 45-117 U/L Total Protein 3.9 6.4-8.2 gm/dl Albumin 1.5 3.4-5.0 gm/dl Globulin 2.4 2.5-4.0 gm/dl Albumin/Globulin Ratio 0.6 0.9-2 Test 01/08/17 08:05 01/08/17 11:12 Range/Units Bedside Glucose 73 136 70-90 mg/dl
[2017-01-08] MEDS ORDERED: FUROSEMIDE INJ 20 MG in SYRINGE 0 ML IV ONE (15:00)
[2017-01-08] MEDS: VANCOMYCIN INJ 1,000 MG in SODIUM CHLORIDE 0.9% 250ML 250 ML IV SCH (18:48)
[2017-01-08] MEDS: ALBUT/IPRATROP 3MG/0.5MG NEB 3 ML VIAL INH SCH (19:10)
[2017-01-08 20:09] LABS: HEMATOCRIT 29.3 % (37-47)
[2017-01-08] MEDS: METOPROLOL TARTRATE 1 MG/ML VIAL IV PRN (21:56)
[2017-01-09] VITALS (10 sets, daily range): BP systolic 124–153; BP diastolic 70–95; PULSE 76–111; TEMP 36.6–37; O2SAT 92–97
[2017-01-09] MEDS: HEPARIN SOD 5000 UNIT/0.5 ML CARP SQ SCH ×3 (01:09→17:00)
[2017-01-09] MEDS ORDERED: TRAMADOL HCL 50 MG TAB PO ONE (03:00)
[2017-01-09] MEDS: LEVOTHYROXINE 88 MCG TAB PO SCH (06:08)
[2017-01-09 06:21] LABS: HEMATOCRIT 25.6 % (37-47); MEAN CELL VOLUME 93.1 fL (80-100); MEAN CORPUSCULAR HEMOGLOBIN 31.6 pg (25-34); MEAN PLATELET VOLUME 9.4 fL (7.4-10.4); PLATELET COUNT 141 K/uL (130-400); RED BLOOD COUNT 2.75 M/uL (4.2-5.4); WHITE BLOOD COUNT 11.25 K/uL (4.8-10.8)
[2017-01-09 06:52] LABS: BUN/CREATININE RATIO 26.6 (10-20); CALCIUM 7.1 mg/dl (8.5-10.1); CREATININE 0.89 mg/dl (0.60-1.20); MAGNESIUM 2.3 mg/dl (1.8-2.4); POTASSIUM 3.1 mmol/L (3.5-5.1)
[2017-01-09 06:53] LABS: PHOSPHORUS 2.7 mg/dl (2.5-4.9)
[2017-01-09] MEDS: INSULIN ASPART 100 UNITS/ML 3 ML PEN SC SCH ×4 (07:00→20:39)
[2017-01-09] MEDS: ALBUT/IPRATROP 3MG/0.5MG NEB 3 ML VIAL INH SCH ×4 (07:20→19:28)
[2017-01-09] MEDS: CEFEPIME IV 2,000 MG in DEXTROSE 5% 100ML 100 ML IV SCH ×2 (08:52→20:05)
[2017-01-09] MEDS: HYDROCORTISONE IV 50 MG in SYRINGE 0 ML IV SCH (08:59)
[2017-01-09] MEDS ORDERED: METOPROLOL SUCC 25MG EXT REL TAB PO SCH (09:00)
[2017-01-09] MEDS: INSULIN GLARGINE SOLOSTAR 100 UNITS/ML 3 ML PEN SC SCH ×2 (09:00→20:38)
[2017-01-09] MEDS ORDERED: POTASSIUM CHLORIDE 10 MEQ TABCR PO ONE ×2 (09:30→16:00)
--- NOTE | 2017-01-09 09:37 | Progress Note ---
Internal Med Progress Note Date of Service: Jan 09, 2017. Provider Documentation: SUBJECTIVE: Patient is seen and examined at bedside. States feeling lot better today. Has minimal cough. Denies any chest pain, bleeding, nausea, vomiting, abd pain. Offers no other complaints. Tolerating diet. States having leg cramps overnight which resolved. OBJECTIVE: Vital Signs-as noted below Physical Exam: General Appearance:Moderately built and nourished, no apparent distress Head: normocephalic, Atraumatic + hearing loss Eyes: normal inspection, EOMI, PERRLA Neck: supple, Trachea midline Respiratory/Chest: Normal breath sounds, CTA Cardiovascular: Irregularly irregular, No murmur Abdomen/GI:Soft, Non tender, Bowel sounds present, No guarding/rigidity/ organomegaly Extremities/Musculoskelatal:normal inspection, no calf tenderness, + Left elbow in bandage, + b/l edema Neurologic/Psych:AAOX3, grossly no focal neurological deficits Skin: normal color, warm Lab data as noted below. ASSESSMENT & PLAN: SEVERE SEPSIS / ISCHEMIC COLITIS Patient presented with generalized weakness, AMS and hypotension, Also had leukocytosis, lactic acidosis Patient was on ciprofloxacin and IV vancomycin for Acinetobacter baumannii, Coag neg Staph, and Strep sp prior to admission Likely source: L Olecranon bursitis, Ischemic bowel, colitis, ?HCAP-less likely S/P IV fluids Stool for C diff: Negative Urine Culture: Jayde(Likely contamination, also positive in stools) MRSA Screen: Negative Blood culture: No growth to date Continue broad spectrum antibiotics: IV vancomycin and cefepime May need 3 weeks of antibiotics per ID Appreciate ID input Currently on IV hydrocortisone: chronic steroid therapy. Will taper to home dose as able CT abd: Likely Ischemic colitis Continue supportive care Monitor Hb :8.7 today Tolerating diet HYPOKALEMIA: Replace and monitor Mag levels WNL ALTERED MENTAL STATUS Likely metabolic encephalopathy secondary to sepsis. Head CT: No acute changes Resolved LOWER GI BLEED ISCHEMIC COLITIS Presented with Lower GI bleeding while in ED. 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 No decompensation currently Plan to resume diuretics in AM INFLAMMATORY ARTHRITIS ON CHRONIC STEROID THERAPY On methylprednisolone for inflammatory arthritis (? RA). Continue IV hydrocortisone taper Will resume home maintenance therapy as able DM II A1C: 5.0 Continue ISS, Lantus, accu checks HYPOTHYROIDISM TSH 5.7. Continue levothyroxine ANEMIA Multifactorial: Iron deficiency and Acute blood loss anemia. Transfuse PRN Monitor CHRONIC EDEMA H/O chronic lymphedema. Contributing factors: Hypoalbuminemia, CHF Monitor H/O CVA: No acute issues DVT PX: Heparin SQ Plan to restart Pradaxa when able CODE STATUS FULL CODE DISPOSITION Plan to transfer to Telemetry PROCEDURES: CT ABD: 1. Small amount of abdominal and pelvic ascites. Anasarca. Small to moderate right and small left pleural effusions with associated opacities which favor atelectasis. 2. Small bowel mesentery vessel engorgement and edema, most evident within the right lower quadrant. No pneumatosis, free air or portal venous gas. No definite bowel wall thickening. This could reflect a nonspecific enteritis and bowel ischemia is within the differential. Close clinical monitoring is recommended. Discussed with Dr. Adkins at time of dictation. 3. Extensive atherosclerotic plaque of the abdominal aorta with severe stenosis versus occlusion of the proximal celiac axis, severe stenosis of the proximal SMA, severe stenosis of the bilateral renal arteries and suspected occlusion of the bilateral superficial femoral arteries. 4. Possible hypoenhancement of the anterior aspect of the spleen. This is probably artifactual although a splenic infarct could appear similar. CT head: Senescent changes as above with no hemorrhage, mass effect, or evidence of acute territorial ischemia by CT criteria. Vital Signs: Date Time Temp Pulse Resp B/P Pulse Ox O2 Delivery O2 Flow Rate FiO2 01/09/17 11:59 36.7 102 18 153/86 97 Room Air 01/09/17 11:51 88 16 93 Room Air 01/09/17 11:47 143 153/86 01/09/17 07:58 36.6 76 18 131/72 96 01/09/17 07:22 84 16 92 Room Air 01/09/17 04:00 Room Air 01/09/17 03:33 36.6 88 20 124/70 96 Room Air 01/08/17 23:59 Room Air 01/08/17 23:33 36.9 21 150/88 95 Room Air 01/08/17 21:56 122 155/86 01/08/17 20:00 Room Air 01/08/17 19:20 37.2 101 16 153/96 98 Room Air 01/08/17 19:10 110 16 94 Room Air 01/08/17 16:00 Room Air 01/08/17 15:36 37.1 94 16 156/91 98 Room Air Lab Results: Results Past 24 Hours Test 01/08/17 16:07 01/08/17 20:03 01/08/17 20:14 01/09/17 06:02 Range/Units Bedside Glucose 170 129 70-90 mg/dl Hemoglobin 9.9 8.7 12.0-16.0 g/dL Hematocrit 29.3 25.6 37-47 % White Blood Count 11.25 4.8-10.8 K/uL Red Blood Count 2.75 4.2-5.4 M/uL Mean Corpuscular Volume 93.1 80-100 fL Mean Corpuscular Hemoglobin 31.6 25-34 pg Mean Corpuscular Hemoglobin Concent 34.0 32-36 g/dl RDW Standard Deviation 61.2 36.4-46.3 fL RDW Coefficient of Variation 18.0 11.5-14.5 % Platelet Count 141 130-400 K/uL Mean Platelet Volume 9.4 7.4-10.4 fL Nucleated RBC Absolute Count (auto) 0.04 0-0 K/uL Nucleated Red Blood Cells % 0.3 % Sodium Level 140 136-145 mmol/L Potassium Level 3.1 3.5-5.1 mmol/L Chloride Level 106 98-107 mmol/L Carbon Dioxide Level 26 21-32 mmol/L Anion Gap 8.0 3-11 mmol/L Blood Urea Nitrogen 24 7-18 mg/dl Creatinine 0.89 0.60-1.20 mg/dl Est Creatinine Clear Calc Drug Dose 44.2 ml/min Estimated GFR () 67.5 Estimated GFR (Non- 58.3 BUN/Creatinine Ratio 26.6 10-20 Random Glucose 77 70-99 mg/dl Calcium Level 7.1 8.5-10.1 mg/dl Phosphorus Level 2.7 2.5-4.9 mg/dl Magnesium Level 2.3 1.8-2.4 mg/dl Test 01/09/17 06:42 01/09/17 11:32 Range/Units Bedside Glucose 71 82 70-90 mg/dl
[2017-01-09] MEDS: PANTOprazole INJ 40 MG in SYRINGE 0 ML IV SCH ×2 (11:47→20:36)
[2017-01-09] MEDS: METOPROLOL TARTRATE 1 MG/ML VIAL IV PRN ×2 (11:47→16:13)
[2017-01-09] MEDS ORDERED: METOPROLOL TARTRATE 1 MG/ML VIAL IV STA (16:54)
[2017-01-09] MEDS ORDERED: FUROSEMIDE INJ 20 MG in SYRINGE 0 ML IV ONE (17:15)
[2017-01-09 17:18] LABS: HEMATOCRIT 29.6 % (37-47)
[2017-01-09] MEDS ORDERED: VANCOMYCIN TROUGH SCH (18:30)
--- NOTE | 2017-01-09 19:57 | Pharmacy Progress Note ---
Pharmacy Antibiotic Prog Note Date of Service Jan 09, 2017. Subjective The patient is currently receiving Vancomycin 1000 mg IV every 24 hours. The patient is currently on day # 4 of inpatient Vancomycin IV therapy at [facility] ( was on prior to admission). Objective Height (Feet): 5 Height (Inches): 4.00 Weight (Kilograms): 75.200 Levels: Item Value Date Time Vancomycin Level Trough 20.0 mcg/ml 01/09/17 1835 Lab Results (24hrs): Laboratory Tests Test 01/09/17 06:02 BUN/Creatinine Ratio 26.6 Blood Urea Nitrogen 24 mg/dl Creatinine 0.89 mg/dl White Blood Count 11.25 K/uL Micro Results: Item Value Date Time Blood Culture - Preliminary Resulted 01/06/17 2135 Blood NO GROWTH TO DATE. MRSA DNA Surveillance Screen - Final Complete 01/06/17 1600 Nasal Specimen Negative for MRSA by DNA Probe Blood Culture - Preliminary Resulted 01/06/17 1152 Blood NO GROWTH TO DATE. Blood Culture - Preliminary Resulted 01/06/17 1130 Blood NO GROWTH TO DATE. Urine Culture - Final Complete 01/06/17 0000 Urine , Clean Catch Jayde Albicans Shiga Toxin Test - Final Complete 01/06/17 0000 Stool No E. Coli shiga toxin 1 or shiga tox... C.difficile Toxin B Gene (PCR) - Final Complete 01/06/17 0000 Stool No C. difficile toxin B gene detected Assessment & Plan Assessment * 86 y/o F with septic bursitis on IV Vancomycin. She also has ischemic colitis and is also on Cefepime and Flagyl. ID is following the patient as well. * Goal Vancomycin trough 15-20 mcg/mL * Trough level on 01/09 @ 1835 of 20.0 mcg/mL (appropriately drawn) is at the upper end of the therapeutic range * Previous trough levels on this same regimen were 11.3 and 12.4. Therefore, very surprised that her level increased as her renal function is actually improving. She may be accumulating Vancomycin, which is surprising as she is not obese. Therefore, will reduce the dose by 10% but maintain the same dosing interval to prevent supratherapeutic levels and target a slightly lower trough. Will also delay the next dose by ~3 hours. Plan * Decr' Vancomycin to 900mg IV q24 * Recheck trough level on 01/12 @ 2130 (prior to the 3rd dose and therefore not reflective of steady state, but would like to assess dosing regimen earlier due to her age and with q24 dosing) Pharmacy will continue to follow and will adjust dose/frequency as necessary. Thank you
[2017-01-09] MEDS: VANCOMYCIN INJ 1,000 MG in SODIUM CHLORIDE 0.9% 250ML 250 ML IV SCH (20:06)
[2017-01-09] MEDS ORDERED: METOPROLOL TARTRATE 25 MG TAB PO SCH (21:00)
[2017-01-09] MEDS ORDERED: METOPROLOL TARTRATE 1 MG/ML VIAL IV PRN (22:00)
[2017-01-10] VITALS (12 sets, daily range): BP systolic 113–159; BP diastolic 72–92; PULSE 88–140; TEMP 36.6–37.2; O2SAT 92–98
[2017-01-10] MEDS: HEPARIN SOD 5000 UNIT/0.5 ML CARP SQ SCH ×3 (01:22→18:24)
[2017-01-10] MEDS: LEVOTHYROXINE 88 MCG TAB PO SCH (06:40)
[2017-01-10] MEDS: INSULIN ASPART 100 UNITS/ML 3 ML PEN SC SCH ×4 (07:00→20:25)
[2017-01-10] MEDS: ALBUT/IPRATROP 3MG/0.5MG NEB 3 ML VIAL INH SCH ×5 (07:15→19:32)
[2017-01-10 07:21] LABS: HEMATOCRIT 27.7 % (37-47); MEAN CELL VOLUME 93.6 fL (80-100); MEAN CORPUSCULAR HEMOGLOBIN 31.1 pg (25-34); MEAN CORPUSCULAR HGB CONC 33.2 g/dl (32-36); PLATELET COUNT 161 K/uL (130-400); RED BLOOD COUNT 2.96 M/uL (4.2-5.4); WHITE BLOOD COUNT 10.45 K/uL (4.8-10.8)
[2017-01-10] MEDS: CEFEPIME IV 2,000 MG in DEXTROSE 5% 100ML 100 ML IV SCH ×2 (07:35→20:16)
[2017-01-10 07:48] LABS: BUN/CREATININE RATIO 23.2 (10-20); CALCIUM 7.3 mg/dl (8.5-10.1); CREATININE 0.96 mg/dl (0.60-1.20); POTASSIUM 4.3 mmol/L (3.5-5.1)
--- NOTE | 2017-01-10 08:28 | ECHOCARDIOGRAM REPORT ---
*NOTICE TO RECEIVING DEMOCRAT AGENCY This information is strictly Confidential and protected under [place] law. [place] law prohibits you from making any further disclosure of this information unless further disclosure is expressly permitted by the written consent of the person to whom it pertains or is authorized by law. A general authorization for the release of medical or other information is not sufficient for this purpose. Hospital accepts no responsibility if the information is made available to any other person, INCLUDING THE PATIENT. Interpretation Summary * Name: MIRZA ROACH Study Date: 01/10/2017 06:40 AM BP: 158/84 mmHg * Patient Location: .2T\S\E218\S\1 HR: 115 * : 1930 (M/d/y) Gender: Female Height: 64 in * Age: 86 yrs Ethnicity: [place] Weight: 165 lb * Ordering Physician: Blake Malloy * Referring Physician: Self, Referred * Performed By: Charisse Jackson RDCS * * Reason For Study: AFIB * BSA: 1.8 m2 * History: AFIB * -- Conclusions -- * Normal LV chamber size with mild concentric LVH. * Mildly reduced LV systolic function with mild global hypokinesis, EF 45-50%. * Grade III diastolic dysfunction. * The aortic valve is trileaflet. * There is no significant aortic regurgitation. * Mild valvular aortic stenosis. * Severe biatrial enlargement. * PASP of 37 mmHg. Procedure Details * A contrast injection of Definity was performed to improve assessment of LV function. * Contrast was injected into an intravenous site in the right arm. * One vial of Definity ultrasound contrast was diluted in normal saline to a total volume of 10 ml. A total of '2' ml of solution was administered during imaging. * Lot # [id number] of Definity utilized for procedure. * Expiration date JAN 11. * The attending nurse who injected the contrast agent was RENETTA CRAMER RN. Left Ventricle * The left ventricle is normal in size. * There is mild concentric left ventricular hypertrophy. * Ejection Fraction = 45-50%. * Left ventricular systolic function is mildly reduced. * There is mild global hypokinesis of the left ventricle. Right Ventricle * The right ventricular cavity size is normal (basal dimension <4.2 cm in right ventricular apical 4-chamber view). * The right ventricular systolic function is reduced as assessed by tricuspid annular plane systolic excursion (TAPSE) (TAPSE <1.6 cm). Atria * The left atrium is severely dilated. * The right atrium is severely dilated. * No ASD detected; PFO is not assessed. Mitral Valve * Calcified mitral apparatus. * There is no mitral valve stenosis. * There is no mitral regurgitation noted. Tricuspid Valve * The tricuspid valve anatomy is normal. * There is no tricuspid stenosis. * There is moderate tricuspid regurgitation. Aortic Valve * The aortic valve is trileaflet. * Mild valvular aortic stenosis. * There is no significant aortic regurgitation. Pulmonic Valve * The pulmonary valve is not well seen, but the Doppler examination is normal without significant regurgitation or stenosis. Great Vessels * The aortic root and proximal ascending aorta are normal sized. Pericardium/Pleural * There is no pericardial effusion. * Moderate size left pleural effusion. Left Ventricular Diastolic Function * Diastolic dysfunction, Grade III, consistent with marked congestive heart failure. MMode 2D Measurements and Calculations IVSd 1.2 cm IVSs 1.5 cm LVIDd 3.6 cm LVIDs 2.8 cm LVPWd 1.6 cm LVPWs 2.0 cm IVS/LVPW 0.73 FS 23.1 % EDV(Teich) 55.4 ml ESV(Teich) 29.2 ml EF(Teich) 47.2 % EDV(cubed) 47.6 ml ESV(cubed) 21.6 ml EF(cubed) 54.6 % % IVS thick 30.6 % % LVPW thick 24.2 % LV mass(C)d 182.6 grams LV mass(C)dI 101.3 grams/m\S\2 LV mass(C)s 195.8 grams LV mass(C)sI 108.6 grams/m\S\2 SV(Teich) 26.1 ml SI(Teich) 14.5 ml/m\S\2 SV(cubed) 26.0 ml SI(cubed) 14.4 ml/m\S\2 Ao root diam 2.3 cm Ao root area 4.1 cm\S\2 LA dimension 3.9 cm LA/Ao 1.7 LVOT diam 2.0 cm LVOT area 3.2 cm\S\2 LVAd ap4 28.7 cm\S\2 LVLd ap4 7.6 cm EDV(MOD-sp4) 91.8 ml LVAs ap4 17.3 cm\S\2 LVLs ap4 5.8 cm ESV(MOD-sp4) 47.3 ml EF(MOD-sp4) 48.5 % LVAd ap2 23.7 cm\S\2 LVLd ap2 7.0 cm EDV(MOD-sp2) 69.7 ml LVAs ap2 17.5 cm\S\2 LVLs ap2 5.7 cm ESV(MOD-sp2) 44.0 ml EF(MOD-sp2) 36.9 % SV(MOD-sp4) 44.5 ml SI(MOD-sp4) 24.7 ml/m\S\2 SV(MOD-sp2) 25.7 ml SI(MOD-sp2) 14.3 ml/m\S\2 Doppler Measurements and Calculations MV E max lilliana 120.0 cm/sec MV dec time 0.10 sec Ao V2 max 260.9 cm/sec Ao max PG 27.2 mmHg Ao max PG (full) 25.4 mmHg Ao V2 mean 184.5 cm/sec Ao mean PG 15.4 mmHg Ao mean PG (full) 14.3 mmHg Ao V2 VTI 45.5 cm JULIETTE(I,A) 0.86 cm\S\2 JULIETTE(I,D) 0.86 cm\S\2 JULIETTE(V,A) 0.83 cm\S\2 JULIETTE(V,D) 0.83 cm\S\2 LV V1 max PG 1.8 mmHg LV V1 mean PG 1.1 mmHg LV V1 max 67.3 cm/sec LV V1 mean 49.7 cm/sec LV V1 VTI 12.2 cm MR max lilliana 538.0 cm/sec MR max PG 115.8 mmHg SV(Ao) 185.8 ml SI(Ao) 103.1 ml/m\S\2 SV(LVOT) 39.2 ml SI(LVOT) 21.7 ml/m\S\2 TR max lilliana 291.8 cm/sec
[2017-01-10] MEDS ORDERED: HYDROCORTISONE IV 50 MG in SYRINGE 0 ML IV SCH (09:00)
[2017-01-10] MEDS: INSULIN GLARGINE SOLOSTAR 100 UNITS/ML 3 ML PEN SC SCH (09:00)
[2017-01-10] MEDS: BUMETANIDE 1 MG TAB PO SCH (09:13)
[2017-01-10] MEDS: METOPROLOL SUCC 25MG EXT REL TAB PO SCH ×2 (09:13→22:09)
--- NOTE | 2017-01-10 10:32 | Progress Note ---
Subjective Date of Service: Jan 10, 2017. Subjective Pt evaluation today including: conversation w/ patient, physical exam, chart review, lab review pt resting comfortably, tolerating abx. no pain. no fevers. all blood cultures negative. wbc 10.4. Echo negative. no events. dressing left elbow intact Problem List Medical Problems: (1) Anemia Status: Acute (2) Anticoagulant long-term use Status: Chronic (3) Atrial fibrillation with RVR Status: Acute (4) Cellulitis of upper extremity Status: Acute (5) Dehydration Status: Acute (6) Pneumonia Status: Acute Objective Vital Signs Date Time Temp Pulse Resp B/P Pulse Ox O2 Delivery O2 Flow Rate FiO2 01/10/17 09:57 102 16 98 Room Air 01/10/17 07:26 36.6 120 19 158/84 92 Room Air 01/10/17 07:15 104 16 92 Room Air 01/10/17 04:00 Room Air 01/10/17 03:41 37.2 120 21 159/88 96 Room Air 01/09/17 23:59 Room Air 01/09/17 23:43 37.0 110 20 136/95 95 Room Air 01/09/17 20:00 Room Air 01/09/17 19:28 111 16 94 Room Air 01/09/17 19:01 36.8 96 18 126/86 97 Room Air 01/09/17 17:21 132 129/80 01/09/17 16:13 162 147/93 01/09/17 16:00 36.8 108 16 130/85 92 Room Air 01/09/17 16:00 Room Air 01/09/17 15:18 102 16 96 Room Air 01/09/17 12:00 Room Air 01/09/17 11:59 36.7 102 18 153/86 97 Room Air 01/09/17 11:51 88 16 93 Room Air 01/09/17 11:47 143 153/86 Physical Exam General Appearance: WD/WN Eyes: normal inspection Neck: supple Respiratory/Chest: normal breath sounds, no respiratory distress Cardiovascular: no edema Extremities: no pedal edema Skin: normal color Laboratory Results Item Value Date Time C.difficile Toxin B Gene (PCR) - Final Complete 01/06/17 0000 Stool No C. difficile toxin B gene detected Urine Culture - Preliminary Resulted 01/06/17 0000 Urine , Clean Catch NO GROWTH - LESS THAN 1,000 COLONIES/... Blood Culture - Preliminary Resulted 01/06/17 1130 Blood NO GROWTH TO DATE. Blood Culture - Preliminary Resulted 01/06/17 1152 Blood NO GROWTH TO DATE. Blood Culture - Preliminary Resulted 01/06/17 2135 Blood NO GROWTH TO DATE. Last 24 Hours Test 01/09/17 11:32 01/09/17 16:05 01/09/17 17:14 01/09/17 18:35 Bedside Glucose 82 mg/dl 137 mg/dl Hemoglobin 10.0 g/dL Hematocrit 29.6 % Vancomycin Level Trough 20.0 mcg/ml Test 01/09/17 20:04 01/10/17 06:32 Bedside Glucose 131 mg/dl White Blood Count 10.45 K/uL Red Blood Count 2.96 M/uL Hemoglobin 9.2 g/dL Hematocrit 27.7 % Mean Corpuscular Volume 93.6 fL Mean Corpuscular Hemoglobin 31.1 pg Mean Corpuscular Hemoglobin Concent 33.2 g/dl RDW Standard Deviation 60.2 fL RDW Coefficient of Variation 17.7 % Platelet Count 161 K/uL Mean Platelet Volume 10.0 fL Sodium Level 138 mmol/L Potassium Level 4.3 mmol/L Chloride Level 106 mmol/L Carbon Dioxide Level 25 mmol/L Anion Gap 7.0 mmol/L Blood Urea Nitrogen 22 mg/dl Creatinine 0.96 mg/dl Est Creatinine Clear Calc Drug Dose 40.2 ml/min Estimated GFR () 61.6 Estimated GFR (Non- 53.2 BUN/Creatinine Ratio 23.2 Random Glucose 65 mg/dl Calcium Level 7.3 mg/dl Assessment and Plan (1) Septic arthritis of elbow, left Assessment & Plan: can continue vanco and cefepime, would give 21 days from time of washout (performed in [place]), would check weekly cbc,cmp, vanco trough (maintain 15-20). will need outpt follow up with surgery as well. No new ID recs at this time.
--- NOTE | 2017-01-10 10:44 | DIAGNOSTIC IMAGING REPORT ---
CHEST 2 VIEWS ROUTINE HISTORY: wheezing, cough COMPARISON: Chest 01/08/2017. FINDINGS: No pneumothorax. Right jugular catheter terminates in the SVC. The cardiac silhouette remains moderately enlarged. There are poststernotomy changes. Mild pulmonary vascular congestion and small bilateral pleural effusions persist. A left retrocardiac density. IMPRESSION: No change in the cardiomegaly, small bilateral pleural effusions, and pulmonary vascular congestion. A left retrocardiac density favors atelectasis from the pleural effusions. Follow-up is recommended to ensure stability. Electronically signed by: Tim Webster M.D. 01/10/2017 10:41 AM Dictated Date/Time: 01/10/2017 10:40 AM
[2017-01-10] MEDS ORDERED: DEXTROSE 50% 50 ML SYR IV ONE (11:30)
[2017-01-10] MEDS ORDERED: NURSING VERBAL MED ORDER ONE ×3 (11:30→20:45)
--- NOTE | 2017-01-10 11:32 | Progress Note ---
Internal Med Progress Note Date of Service: Jan 10, 2017. Provider Documentation: SUBJECTIVE: Patient is seen and examined at bedside. Patient has been drowsy intermittently this morning. + Hypoglycemia on labs. + dry cough. Denies any chest pain, bleeding, nausea, vomiting, abd pain. Offers no other complaints. CXR:No acute change. OBJECTIVE: Vital Signs-as noted below Physical Exam: General Appearance:Moderately built and nourished, no apparent distress, Drowsy Head: normocephalic, Atraumatic + hearing loss Eyes: normal inspection, EOMI, PERRLA Neck: supple, Trachea midline Respiratory/Chest: Normal breath sounds, CTA Cardiovascular: Irregularly irregular, +Tachycardia, No murmur Abdomen/GI:Soft, Non tender, Bowel sounds present, No guarding/rigidity/ organomegaly Extremities/Musculoskelatal:normal inspection, no calf tenderness, + Left elbow in bandage, + b/l edema Neurologic/Psych:AAOX3, grossly no focal neurological deficits Skin: normal color, warm Lab data as noted below. ASSESSMENT & PLAN: SEVERE SEPSIS / ISCHEMIC COLITIS Patient presented with generalized weakness, AMS and hypotension, Also had leukocytosis, lactic acidosis Patient was on ciprofloxacin and IV vancomycin for Acinetobacter baumannii, Coag neg Staph, and Strep sp prior to admission Likely source: L Olecranon bursitis, Ischemic bowel, colitis, ?HCAP-less likely S/P IV fluids Stool for C diff: Negative Urine Culture: Jayde(Likely contamination, also positive in stools) MRSA Screen: Negative Blood culture: No growth to date Continue broad spectrum antibiotics: IV vancomycin and cefepime May need 3 weeks of antibiotics per ID Appreciate ID input S/P IV hydrocortisone: on chronic steroid therapy. Resume to home dose tomorrow CT abd: Likely Ischemic colitis Continue supportive care Monitor Hb :9.2 today Tolerating diet HYPOGLYCEMIA: Hold Lantus for now Monitor Blood sugar levels Hypoglycemia protocol HYPOKALEMIA: Resolved monitor Mag levels WNL ALTERED MENTAL STATUS Likely metabolic encephalopathy secondary to sepsis. Head CT: No acute changes Drowsy this morning likely secondary to hypoglycemia LOWER GI BLEED ISCHEMIC COLITIS Presented with Lower GI bleeding while in ED. 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 S/P 2 unit PRBC since hospitalization Hold Pradaxa Hb:9.2 today Currently no active bleeding Monitor Hb Continue PPI Appreciate GI input No plans for scopes per GI Continue Mesalamine 800mg daily CORONARY ARTERY DISEASE No acute issues Monitor CHRONIC ATRIAL FIBRILLATION Metoprolol increased for better rate control Was on Metoprolol succinate 25 mg daily at home IV lopressor PRN Pradaxa/Anticoagulation to be discontinued secondary to high risk than benefit Consider to start on aspirin Appreciate cardiology help ECHO: as below CHF Diuretics initially held in setting of sepsis/ischemic colitis Last ECHO: EF of 50%. No decompensation currently Continue home diuretics which were resumed today INFLAMMATORY ARTHRITIS ON CHRONIC STEROID THERAPY On methylprednisolone for inflammatory arthritis (? RA). S/P IV hydrocortisone taper Resume maintenance therapy of methylprednisolone today DM II A1C: 5.0 Continue ISS, Accu checks Lantus on hold secondary to hypoglycemia HYPOTHYROIDISM TSH 5.7. Continue levothyroxine ANEMIA Multifactorial: Iron deficiency and Acute blood loss anemia. Transfuse PRN Monitor CHRONIC EDEMA H/O chronic lymphedema. Contributing factors: Hypoalbuminemia, CHF Monitor H/O CVA: No acute issues DVT PX: Heparin SQ Pradaxa discontinued CODE STATUS FULL CODE DISPOSITION Continue monitoring in Telemetry PROCEDURES: CT ABD: 1. Small amount of abdominal and pelvic ascites. Anasarca. Small to moderate right and small left pleural effusions with associated opacities which favor atelectasis. 2. Small bowel mesentery vessel engorgement and edema, most evident within the right lower quadrant. No pneumatosis, free air or portal venous gas. No definite bowel wall thickening. This could reflect a nonspecific enteritis and bowel ischemia is within the differential. Close clinical monitoring is recommended. Discussed with Dr. Adkins at time of dictation. 3. Extensive atherosclerotic plaque of the abdominal aorta with severe stenosis versus occlusion of the proximal celiac axis, severe stenosis of the proximal SMA, severe stenosis of the bilateral renal arteries and suspected occlusion of the bilateral superficial femoral arteries. 4. Possible hypoenhancement of the anterior aspect of the spleen. This is probably artifactual although a splenic infarct could appear similar. CT head: Senescent changes as above with no hemorrhage, mass effect, or evidence of acute territorial ischemia by CT criteria. ECHO: * Normal LV chamber size with mild concentric LVH. * Mildly reduced LV systolic function with mild global hypokinesis, EF 45-50% . * Grade III diastolic dysfunction. * The aortic valve is trileaflet. * There is no significant aortic regurgitation. * Mild valvular aortic stenosis. * Severe biatrial enlargement. * PASP of 37 mmHg. Vital Signs: Date Time Temp Pulse Resp B/P Pulse Ox O2 Delivery O2 Flow Rate FiO2 01/10/17 11:18 119 16 96 Room Air 01/10/17 09:57 102 16 98 Room Air 01/10/17 07:26 36.6 120 19 158/84 92 Room Air 01/10/17 07:15 104 16 92 Room Air 01/10/17 04:00 Room Air 01/10/17 03:41 37.2 120 21 159/88 96 Room Air 01/09/17 23:59 Room Air 01/09/17 23:43 37.0 110 20 136/95 95 Room Air 01/09/17 20:00 Room Air 01/09/17 19:28 111 16 94 Room Air 01/09/17 19:01 36.8 96 18 126/86 97 Room Air 01/09/17 17:21 132 129/80 01/09/17 16:13 162 147/93 01/09/17 16:00 36.8 108 16 130/85 92 Room Air 01/09/17 16:00 Room Air 01/09/17 15:18 102 16 96 Room Air 01/09/17 12:00 Room Air 01/09/17 11:59 36.7 102 18 153/86 97 Room Air 01/09/17 11:51 88 16 93 Room Air 01/09/17 11:47 143 153/86 Lab Results: Results Past 24 Hours Test 01/09/17 16:05 01/09/17 17:14 01/09/17 18:35 01/09/17 20:04 Range/Units Bedside Glucose 137 131 70-90 mg/dl Hemoglobin 10.0 12.0-16.0 g/dL Hematocrit 29.6 37-47 % Vancomycin Level Trough 20.0 SEE COMMENT mcg/ml Test 01/10/17 06:32 01/10/17 06:59 01/10/17 11:04 Range/Units White Blood Count 10.45 4.8-10.8 K/uL Red Blood Count 2.96 4.2-5.4 M/uL Hemoglobin 9.2 12.0-16.0 g/dL Hematocrit 27.7 37-47 % Mean Corpuscular Volume 93.6 80-100 fL Mean Corpuscular Hemoglobin 31.1 25-34 pg Mean Corpuscular Hemoglobin Concent 33.2 32-36 g/dl RDW Standard Deviation 60.2 36.4-46.3 fL RDW Coefficient of Variation 17.7 11.5-14.5 % Platelet Count 161 130-400 K/uL Mean Platelet Volume 10.0 7.4-10.4 fL Sodium Level 138 136-145 mmol/L Potassium Level 4.3 3.5-5.1 mmol/L Chloride Level 106 98-107 mmol/L Carbon Dioxide Level 25 21-32 mmol/L Anion Gap 7.0 3-11 mmol/L Blood Urea Nitrogen 22 7-18 mg/dl Creatinine 0.96 0.60-1.20 mg/dl Est Creatinine Clear Calc Drug Dose 40.2 ml/min Estimated GFR () 61.6 Estimated GFR (Non- 53.2 BUN/Creatinine Ratio 23.2 10-20 Random Glucose 65 70-99 mg/dl Calcium Level 7.3 8.5-10.1 mg/dl Bedside Glucose 65 62 70-90 mg/dl
[2017-01-10] MEDS ORDERED: DEXTROSE 50% 50 ML SYR ONE (11:40)
[2017-01-10] MEDS: PANTOprazole INJ 40 MG in SYRINGE 0 ML IV SCH ×2 (11:45→20:25)
[2017-01-10] MEDS ORDERED: DILTIAZEM HCL 30 MG TAB PO ONE (12:45)
--- NOTE | 2017-01-10 12:54 | CARDIOLOGY CONSULTATION ---
DATE OF CONSULTATION: 01/10/2017 CONSULTATION REQUESTED BY: Dr. Malloy. REASON FOR CONSULTATION: Atrial fibrillation with rapid ventricular response. HISTORY OF PRESENT ILLNESS: Mrs. Morales is a very pleasant yet significantly confused 86-year-old woman who was admitted to [facility] on 01/06/2017 for sepsis. Currently the patient is rather confused, which is a significant decline from mental status yesterday, as per the nursing staff. History obtained through review of medical records. Apparently, the patient was as at [facility] on the after recent discharge from [facility] for an elbow infection. Then on the , the patient became unresponsive, and she was transported to [facility]. Here, she was found to be in septic shock. She was in atrial fibrillation with rapid ventricular response which apparently is not a new diagnosis for her. She was started on appropriate treatment for sepsis. She was also found to be anemic with a GI bleed and the Pradaxa that she was on for her stroke prevention was discontinued. Apparently, the patient clinically improved over the next several days; however, heart rates remained elevated with an aFib in the 120s and 130s and on the , cardiology was consulted. Again, currently, she is without complaint, somewhat confused but denies any chest pain, shortness of breath, palpitations, lightheadedness, dizziness or syncope. Of note, we have no other cardiac history available per the patient. She has never been seen by [facility]. PAST SURGICAL HISTORY: 1. Right total knee. 2. Coronary bypass grafting surgery x3 with unknown grafts. 3. Cataract surgery. 4. Recent elbow bursectomy. 5. Cholecystectomy. 6. Hysterectomy. PAST MEDICAL ILLNESSES: 1. Atrial fibrillation, on chronic Pradaxa anticoagulation. 2. History of aortic stenosis. 3. Diabetes. 4. Multiple pressure ulcers. 5. Coronary artery disease status post CABG. 6. Ulcerative colitis, on chronic steroids. 7. Hypothyroidism. 8. Asthma. 9. GERD. 10. Dyslipidemia. FAMILY HISTORY: Noncontributory. SOCIAL HISTORY: No history of alcohol, tobacco or recreational drug use. Again, she is currently a resident of [facility]. REVIEW OF SYSTEMS: Unobtainable given the patient's current mental State. ALLERGIES: No known drug allergies. MEDICATIONS CURRENTLY: 1. Bumex 1 mg p.o. daily. 2. Metoprolol tartrate 25 mg p.o. b.i.d. 3. Synthroid daily. 4. Protonix IV b.i.d. 5. Subcutaneous heparin. 6. Cefepime. 7. Insulin sliding scale. 8. Vancomycin. 9. Hydrocortisone. PHYSICAL EXAMINATION: VITALS: Temperature 36.6, pulse 120, respiratory rate 12, blood pressure 158/84. GENERAL: Awake, alert, oriented to self only. No acute distress. HEENT: Normocephalic, atraumatic. Pupils equal, round, and reactive to light and accommodation. Extraocular muscles intact. Anicteric sclerae. Moist mucous membranes. The patient has scrambled eggs in her mouth; however, no breakfast trace in the room. NECK: No JVD, no bruit. CARDIOVASCULAR: Irregularly irregular and fast. Unable to appreciate murmurs, rubs or gallops. PULMONARY: Diffuse rhonchi. No rales or wheezing. ABDOMEN: Bowel sounds x4, soft. No rebound, guarding, tenderness. No organomegaly. EXTREMITIES: No clubbing, cyanosis or edema. +2 pedal pulses bilaterally. SKIN: Warm and dry. TEST RESULTS: 2D echocardiogram was read as normal LV chamber size with mild concentric LVH, mildly reduced LV systolic function with mild global hypokinesis, EF 45-50%, grade 3 diastolic dysfunction, calcified aortic valve with mild aortic stenosis, severe biatrial enlargement, and PA systolic pressure of 37 mmHg. A 12-lead EKG performed today independently reviewed at this time shows atrial fibrillation with rapid ventricular response at 109 beats per minute with occasional PVCs, low voltage study, inverted T waves in the inferior and anterior leads and T-wave flattening laterally. IMPRESSION: 1. Persistent atrial fibrillation, rate controlled with rapid ventricular response. 2. Gastrointestinal bleed in the setting of Plavix since discontinued. 3. Aortic stenosis. 4. Coronary artery disease. 5. Questionable dementia with possible component of delirium. RECOMMENDATIONS: It was my pleasure to see Mrs. Morales in consultation today. From a cardiac standpoint at this point, I do not believe the patient will ever be an anticoagulation candidate again and her Pradaxa will not be restarted. I would like to restart her aspirin now and will discuss this with our GI colleagues first. Otherwise, in terms of her rate control, I will switch her back to Toprol-XL 25 mg, but increase the frequency to 25 mg b.i.d. Will also consider adding short-acting diltiazem, should her rates do not improve, but we will follow for now.
--- NOTE | 2017-01-10 12:55 | Gastroenterology Progress Note ---
Progress Note Date of Service: Jan 10, 2017 Subjective Pt evaluation today including: conversation w/ patient, physical exam, chart review, lab review, review of inpatient medication list No BMs since 2 days ago. Pt denies any abd pain, n/v. Tolerating diet. RN report she is a bit drowsy this AM no sedating meds or new meds overnight. Review of Systems Constitutional: No chills, No fever Respiratory: + cough, No shortness of breath Cardiac: No chest pain Abdomen: No GI bleeding, No nausea, No pain, No vomiting Endo: + fatigue Medications Current Inpatient Medications Medications (Trade) Dose Ordered Sig/Nanda Route Start Time Stop Time Status Last Admin Dose Admin Pantoprazole Sodium/Syringe (Protonix Inj/ Syringe) 10 ml @ 5 mls/min BID@1100,2100 IV 01/07/17 11:00 02/06/17 10:59 01/09/17 20:36 5 MLS/MIN Ioversol (Optiray 320) 125 ml UD PRN IV 01/06/17 16:00 01/10/17 15:59 Miscellaneous Information 1 ea 1 ea UD N/A 01/06/17 16:23 02/05/17 16:22 Cefepime HCl/ Dextrose (Maxipime IV/D5 100ml) 112.5 ml @ 200 mls/hr Q12H IV 01/06/17 20:00 01/16/17 19:59 01/10/17 07:35 200 MLS/HR Insulin Glargine (Lantus Solostar Pen) 4 unit BID SC 01/06/17 21:00 02/05/17 20:59 Future Hold 01/09/17 20:38 4 UNIT Heparin Sodium (Porcine) (Heparin 10 Unit/ ml 5 ml Flush) 5 ml PRN PRN FLUSH 01/06/17 23:45 02/05/17 23:44 Heparin Sodium (Porcine) (Heparin Sq 5000 Unit/0.5ml) 5,000 unit Q8H SQ 01/07/17 09:00 02/06/17 08:59 01/10/17 01:22 5,000 UNIT Levothyroxine Sodium (Synthroid Tab) 88 mcg DAILYBB PO 01/08/17 06:00 02/07/17 05:59 01/10/17 06:40 88 MCG Miscellaneous Information (Order Awaiting Action) 1 ea QS N/A 01/08/17 00:00 02/07/17 00:00 Insulin Aspart (novoLOG ASPART) SLIDING SCALE G... ACHS SC 01/07/17 21:00 02/06/17 20:59 01/08/17 17:14 2 UNITS Albuterol/ Ipratropium (Duoneb) 3 ml QIDR INH 01/08/17 16:00 02/07/17 15:59 01/10/17 11:18 3 ML Bumetanide (Bumex Tab) 1 mg QAM PO 01/10/17 09:00 02/09/17 08:59 01/10/17 09:13 1 MG Metoprolol Tartrate 2.5 mg 2.5 mg Q6H PRN IV 01/09/17 22:00 02/08/17 21:59 Vancomycin HCl/ Sodium Chloride (Vancomycin Inj/ Nss 250ml) 268 ml @ 125 mls/hr DAILY@2200 IV 01/10/17 22:00 02/17/17 21:59 Metoprolol Succinate (Toprol Xl Tab) 25 mg BID PO 01/10/17 09:00 02/09/17 08:59 01/10/17 09:13 25 MG Methylprednisolone (Medrol Tab) 4 mg QAM PO 01/11/17 09:00 02/10/17 08:59 Objective Vital Signs Date Time Temp Pulse Resp B/P Pulse Ox O2 Delivery O2 Flow Rate FiO2 01/10/17 12:07 36.9 140 20 138/89 94 Nasal Cannula 2.0 01/10/17 12:00 Room Air 01/10/17 11:18 119 16 96 Room Air 01/10/17 09:57 102 16 98 Room Air 01/10/17 08:00 Room Air 01/10/17 07:26 36.6 120 19 158/84 92 Room Air 01/10/17 07:15 104 16 92 Room Air 01/10/17 04:00 Room Air 01/10/17 03:41 37.2 120 21 159/88 96 Room Air 01/09/17 23:59 Room Air 01/09/17 23:43 37.0 110 20 136/95 95 Room Air 01/09/17 20:00 Room Air 01/09/17 19:28 111 16 94 Room Air 01/09/17 19:01 36.8 96 18 126/86 97 Room Air 01/09/17 17:21 132 129/80 01/09/17 16:13 162 147/93 01/09/17 16:00 36.8 108 16 130/85 92 Room Air 01/09/17 16:00 Room Air 01/09/17 15:18 102 16 96 Room Air Physical Exam General Appearance: WD/WN, + mild distress (appears fatigued) Neck: supple, no JVD, trachea midline Respiratory/Chest: + decreased breath sounds, + crackles, + wheezing Cardiovascular: no gallop, no murmur, + irregularly irregular Abdomen: normal bowel sounds, non tender, soft Extremities: normal inspection, no pedal edema, no calf tenderness Neurologic/Psych: alert, normal mood/affect, oriented x 3 Skin: normal color, no jaundice, no rash Laboratory Results Last 24 Hours Test 01/09/17 16:05 01/09/17 17:14 01/09/17 18:35 01/09/17 20:04 Bedside Glucose 137 mg/dl 131 mg/dl Hemoglobin 10.0 g/dL Hematocrit 29.6 % Vancomycin Level Trough 20.0 mcg/ml Test 01/10/17 06:32 01/10/17 06:59 01/10/17 11:04 01/10/17 11:38 White Blood Count 10.45 K/uL Red Blood Count 2.96 M/uL Hemoglobin 9.2 g/dL Hematocrit 27.7 % Mean Corpuscular Volume 93.6 fL Mean Corpuscular Hemoglobin 31.1 pg Mean Corpuscular Hemoglobin Concent 33.2 g/dl RDW Standard Deviation 60.2 fL RDW Coefficient of Variation 17.7 % Platelet Count 161 K/uL Mean Platelet Volume 10.0 fL Sodium Level 138 mmol/L Potassium Level 4.3 mmol/L Chloride Level 106 mmol/L Carbon Dioxide Level 25 mmol/L Anion Gap 7.0 mmol/L Blood Urea Nitrogen 22 mg/dl Creatinine 0.96 mg/dl Est Creatinine Clear Calc Drug Dose 40.2 ml/min Estimated GFR () 61.6 Estimated GFR (Non- 53.2 BUN/Creatinine Ratio 23.2 Random Glucose 65 mg/dl Calcium Level 7.3 mg/dl Bedside Glucose 65 mg/dl 62 mg/dl 120 mg/dl Assessment and Plan Impression Patient is a 86 year old female currently admitted for sepsis (origin unknown for now but multiple possible sources including from IJ, ? pneumonia, L elbow infection, infectious colitis). She is seen for bloody BMs & anemia. Given hypotension, tachycardia, likely has ischemic colitis, though other differentials include: infectious colitis, IBD flare (less likely), diverticular bleeding, AVMs CT abd/pelvis showed small bowel mesentery engorgement, edema ? non specific colitis vs ischemia. She has extensive artherosclerotic disease. CXR w bibasilar infiltrates. Cdiff negative. Stool and urine culture grew Jayde Albicans ?contamination from urine. Stools forming, no rectal bleeding anymore. H/H stable (received total of 2U PRBC). No plans for endoscopic evaluation. Plans - Defer antibx choice to primary and ICU team. - Protonix 40mg IV BID - Monitor H/H and transfuse prn - May continue Mesalamine 800mg daily for now. - Will sign off, pls call if new question or concerns arise. - Given scattered wheezing, crackles, I have ordered CXR to r/o pulmonary edema. I have alerted primary hospitalist Dr. Malloy who will f/u on CXR results. RN to administer Duonebs and apply O2. I performed a history and physical examination of the patient. I have discussed the patient's case, impression and plan with NAOMI Amanda. Her note reflects my findings and plan. No further GI recs. Look for other sources of infection. Benji Hinton MD
[2017-01-10] MEDS ORDERED: DILTIAZEM HCL 180 MG CAPCR PO ONE (15:30)
--- NOTE | 2017-01-10 15:32 | DIAGNOSTIC IMAGING REPORT ---
HEAD CT NONCONTRAST CT DOSE: 823.94 mGycm HISTORY: Altered mental status, H/O Afib. R/O CVA TECHNIQUE: Multiaxial CT images of the head were performed without the use of intravenous contrast. Automated exposure control was utilized for this study. Comparison: Head CT 01/06/2017. Findings: The paranasal sinuses and mastoid air cells are clear. The calvarium and skull base are intact. There is no mass, hematoma, midline shift, acute infarct. White matter hypodensity is nonspecific but suggestive of microvascular ischemic change. The ventricles and sulci demonstrate moderate age-related involutional changes. Old bilateral thalamic lacunar infarcts. Impression: No significant change compared to the prior study. No acute intracranial abnormality. Electronically signed by: Tim Webster M.D. 01/10/2017 3:30 PM Dictated Date/Time: 01/10/2017 3:25 PM
--- NOTE | 2017-01-10 15:44 | Neurology Consultation ---
Neurology Consultation Date of Consultation: Jan 10, 2017. Attending Physician: Blake Malloy MD Primary Care Physician: Pj Lara D.O. 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 She was hospitalized at [facility] on 12/28/16 for cellulitis and septic olecranon bursitis LUE, cultures were taken and she was started on IV antibiotics. She was then transferred to [facility] for the IV cipro and vanco and PT on 01/03/17. on 01/05 she was weak and minimally responsive with SBP 70. she was started on fluid resuscitation and brought to the ED. She was found to have a GI bleed and the Dabigatran was d/c. Her heart rate has been increasing and cardiology is working on the rate and did an ECHO which showed EF 45-50%, grade 3 diastolic dysfunction, calcified aortic valve, with mild aortic stenosis, severe biatrial enlargement, and PA systolic pressure of 37 mmHg. she is currently on heparin 5000 U SQ. She states she is not feeling well. Past Medical/Surgical History Medical Problems: (1) Anemia Status: Acute (2) Anticoagulant long-term use Status: Chronic (3) Atrial fibrillation with RVR Status: Acute (4) Cellulitis of upper extremity Status: Acute (5) Dehydration Status: Acute (6) Pneumonia Status: Acute Social History Alcohol Use: none Drug Use: none Housing Status: halfway Allergies Coded Allergies: No Known Allergies (Unverified , 01/06/17) Current Inpatient Medications Current Inpatient Medications Medications (Trade) Dose Ordered Sig/Nanda Route Start Time Stop Time Status Last Admin Dose Admin Pantoprazole Sodium/Syringe (Protonix Inj/ Syringe) 10 ml @ 5 mls/min BID@1100,2100 IV 01/07/17 11:00 02/06/17 10:59 01/10/17 11:45 5 MLS/MIN Ioversol (Optiray 320) 125 ml UD PRN IV 01/06/17 16:00 01/10/17 15:59 Miscellaneous Information 1 ea 1 ea UD N/A 01/06/17 16:23 02/05/17 16:22 Cefepime HCl/ Dextrose (Maxipime IV/D5 100ml) 112.5 ml @ 200 mls/hr Q12H IV 01/06/17 20:00 01/16/17 19:59 01/10/17 07:35 200 MLS/HR Insulin Glargine (Lantus Solostar Pen) 4 unit BID SC 01/06/17 21:00 02/05/17 20:59 Future Hold 01/09/17 20:38 4 UNIT Heparin Sodium (Porcine) (Heparin 10 Unit/ ml 5 ml Flush) 5 ml PRN PRN FLUSH 01/06/17 23:45 02/05/17 23:44 Heparin Sodium (Porcine) (Heparin Sq 5000 Unit/0.5ml) 5,000 unit Q8H SQ 01/07/17 09:00 02/06/17 08:59 01/10/17 01:22 5,000 UNIT Levothyroxine Sodium (Synthroid Tab) 88 mcg DAILYBB PO 01/08/17 06:00 02/07/17 05:59 01/10/17 06:40 88 MCG Miscellaneous Information (Order Awaiting Action) 1 ea QS N/A 01/08/17 00:00 02/07/17 00:00 Insulin Aspart (novoLOG ASPART) SLIDING SCALE G... ACHS SC 01/07/17 21:00 02/06/17 20:59 01/08/17 17:14 2 UNITS Albuterol/ Ipratropium (Duoneb) 3 ml QIDR INH 01/08/17 16:00 02/07/17 15:59 01/10/17 11:18 3 ML Bumetanide (Bumex Tab) 1 mg QAM PO 01/10/17 09:00 02/09/17 08:59 01/10/17 09:13 1 MG Metoprolol Tartrate 2.5 mg 2.5 mg Q6H PRN IV 01/09/17 22:00 02/08/17 21:59 Vancomycin HCl/ Sodium Chloride (Vancomycin Inj/ Nss 250ml) 268 ml @ 125 mls/hr DAILY@2200 IV 01/10/17 22:00 02/17/17 21:59 Metoprolol Succinate (Toprol Xl Tab) 25 mg BID PO 01/10/17 09:00 5/17/17 08:59 01/10/17 09:13 25 MG Methylprednisolone (Medrol Tab) 4 mg QAM PO 01/11/17 09:00 02/10/17 08:59 Physical Exam Vital Signs (Past 24 Hrs): Date Time Temp Pulse Resp B/P Pulse Ox O2 Delivery O2 Flow Rate FiO2 01/10/17 12:07 36.9 140 20 138/89 94 Nasal Cannula 2.0 01/10/17 12:00 Room Air 01/10/17 11:18 119 16 96 Room Air 01/10/17 09:57 102 16 98 Room Air 01/10/17 08:00 Room Air 01/10/17 07:26 36.6 120 19 158/84 92 Room Air 01/10/17 07:15 104 16 92 Room Air 01/10/17 04:00 Room Air 01/10/17 03:41 37.2 120 21 159/88 96 Room Air 01/09/17 23:59 Room Air 01/09/17 23:43 37.0 110 20 136/95 95 Room Air 01/09/17 20:00 Room Air 01/09/17 19:28 111 16 94 Room Air 01/09/17 19:01 36.8 96 18 126/86 97 Room Air 01/09/17 17:21 132 129/80 01/09/17 16:13 162 147/93 01/09/17 16:00 36.8 108 16 130/85 92 Room Air 01/09/17 16:00 Room Air 01/09/17 15:18 102 16 96 Room Air Physical Exam: Constitutional: appearance nourished , 2L O2 NC Ears, Nose, Mouth and Throat: mucous membranes moist, no injection and skin normal, eyes normal Cardiovascular: irregular irregular Respiratory: course breath sounds with inspiratory wheezing Musculoskeletal: 2++ pitting edema bilateral LE Skin: LE elbow wrapped no discharge Eyes: extraocular muscles intact (EOMI) and pupils equal, round and reactive to light (PERRL) NEUROLOGIC EXAMINATION: Mental status: Alert with voice stimulation, somewhat lethargic awakens easily Oriented to person Speech fluent with no evidence of aphasia Cranial Nerves smile and eye brow raise is symmetric, tongue midline Reflexes: Deep tendon reflexes were symmetrical and graded 2/5. UE unable to test LE active flexion produces pain Sensory: intact to light touch and vibration Gait/Stance: Posture lying in bed Motor: unable to maintain arms against gravity Strength: generalized weakness UE. LE Laboratory Results Past 24 Hours: 01/10/17 06:32 01/10/17 06:32 Test 01/09/17 18:35 01/10/17 06:32 01/10/17 11:38 Vancomycin Level Trough 20.0 mcg/ml (SEE COMMENT) Red Blood Count 2.96 M/uL (4.2-5.4) Mean Corpuscular Volume 93.6 fL (80-100) Mean Corpuscular Hemoglobin 31.1 pg (25-34) Mean Corpuscular Hemoglobin Concent 33.2 g/dl (32-36) RDW Standard Deviation 60.2 fL (36.4-46.3) RDW Coefficient of Variation 17.7 % (11.5-14.5) Mean Platelet Volume 10.0 fL (7.4-10.4) Anion Gap 7.0 mmol/L (3-11) Est Creatinine Clear Calc Drug Dose 40.2 ml/min Estimated GFR () 61.6 Estimated GFR (Non- 53.2 BUN/Creatinine Ratio 23.2 (10-20) Calcium Level 7.3 mg/dl (8.5-10.1) Bedside Glucose 120 mg/dl (70-90) Imaging CT head- Senescent changes as above with no hemorrhage, mass effect, or evidence of acute territorial ischemia by CT criteria. Impression 86 year old female current sepsis treatment, known afib, CHF Plan 1. CT head -repeat ordered 2. ? possible dementia with hospital delirium but she does not seem overtly delirious 3. continue to correct lytes 4. now requiring 2 L O2- CHF 5. not focal weakness on exam -could MRI brain at some point but not urgent- may have had an embolic shower but unable to change treatment at this time 6. correct metabolic causes 7. will continue to follow as needed I have seen and discussed above patient with Dr Gio Starr, neurology Reviewed patient seen and situation reviewed patient examined and interviewed and CT scans reviewed This is most likely a multifactorial encephalopathyrelated to a host of medical illnesses and metabolic abnormalities but certainly in light of her atrial fibrillation now of anticoagulation of r four plus days there is a risk of cerebral emboli perhaps an embolic shower and diagnosis of this would require an mri That having been said the issue is academic as we cannot restart any anticoagulation here with the dropping hemoglobin and possible low grade active gi bleed NO evidence for seizure so no need for eeg exam nonfocal save for confusion and lethargy which are of course "non focal " findings as well will defer decision re mri to hospitalist service and continue to follow Gio Starr MD
[2017-01-10] MEDS ORDERED: NITROGLYCERIN 0.4 MG SL PER TAB CHARGE SL PRN (18:00)
[2017-01-10] MEDS: DEXTROSE 50% 50 ML SYR IV PRN (20:15)
[2017-01-10] MEDS ORDERED: VANCOMYCIN INJ 900 MG in SODIUM CHLORIDE 0.9% 250ML 250 ML IV SCH (22:00)
[2017-01-11] VITALS (7 sets, daily range): BP systolic 114–123; BP diastolic 65–69; PULSE 72–80; TEMP 36.5–36.8; O2SAT 90–97
[2017-01-11] MEDS ORDERED: DEXTROSE 50% 50 ML SYR IV STA (02:07)
[2017-01-11] MEDS: HEPARIN SOD 5000 UNIT/0.5 ML CARP SQ SCH ×2 (02:12→09:13)
[2017-01-11] MEDS ORDERED: GLUCOSE 10 TABS/TUBE PO PRN (02:15)
[2017-01-11] MEDS ORDERED: GLUCOSE 40% GEL 15 GM TUBE PO PRN (02:15)
[2017-01-11] MEDS ORDERED: NURSING VERBAL MED ORDER ONE (02:15)
[2017-01-11] MEDS ORDERED: GLUCAGON FOR INJ 1 MG VIAL SQ PRN (02:15)
[2017-01-11] MEDS ORDERED: DEXTROSE 50% 50 ML SYR IV PRN (02:15)
[2017-01-11] MEDS ORDERED: IBUPROFEN 200 MG TAB PO STA (04:56)
[2017-01-11] MEDS: DEXTROSE 50% 50 ML SYR IV PRN (05:06)
[2017-01-11] MEDS ORDERED: ACETAMINOPHEN IV 650 MG in EMPTY BAG 0 ML IV STA (05:26)
[2017-01-11] MEDS ORDERED: KETOROLAC TROMETHAMINE 15 MG/ML VIAL IV ONE (05:30)
[2017-01-11] MEDS: LEVOTHYROXINE 88 MCG TAB PO SCH (06:00)
[2017-01-11 06:46] LABS: HEMATOCRIT 25.6 % (37-47)
[2017-01-11] MEDS: INSULIN ASPART 100 UNITS/ML 3 ML PEN SC SCH ×2 (07:00→11:00)
[2017-01-11] MEDS: ALBUT/IPRATROP 3MG/0.5MG NEB 3 ML VIAL INH SCH ×2 (07:12→12:02)
[2017-01-11 07:15] LABS: BUN/CREATININE RATIO 20.6 (10-20); CALCIUM 7.1 mg/dl (8.5-10.1); CREATININE 0.97 mg/dl (0.60-1.20); POTASSIUM 3.8 mmol/L (3.5-5.1)
[2017-01-11] MEDS: CEFEPIME IV 2,000 MG in DEXTROSE 5% 100ML 100 ML IV SCH (08:00)
[2017-01-11] MEDS: BUMETANIDE 1 MG TAB PO SCH (08:54)
[2017-01-11] MEDS: METOPROLOL SUCC 25MG EXT REL TAB PO SCH (08:55)
[2017-01-11] MEDS ORDERED: METHYLPREDNISOLONE 4 MG TAB PO SCH (09:00)
[2017-01-11] MEDS ORDERED: DILTIAZEM HCL 180 MG CAPCR PO SCH (09:00)
[2017-01-11] MEDS ORDERED: MoRPHine SULFATE 2 MG/ML CARP IV STA ×2 (09:20→11:05)
--- NOTE | 2017-01-11 09:26 | Cardiology Follow-Up ---
Subjective Subjective Date of Service: Jan 11, 2017. Pt evaluation today including: conversation w/ patient, conversation w/ family , physical exam, chart review, lab review, review of studies, review of inpatient medication list Additional Details: Pt seen with daughter/poa at bedside. Significant clinical deterioration overnight. Currently minimally responsive. Grossly audible stridor. Very lethargic. Tele reviewed: afib rate controlled Problem List Medical Problems: (1) Anemia Status: Acute (2) Anticoagulant long-term use Status: Chronic (3) Atrial fibrillation with RVR Status: Acute (4) Cellulitis of upper extremity Status: Acute (5) Dehydration Status: Acute (6) Pneumonia Status: Acute Review of Systems Constitutional: No chills, No fever Respiratory: + cough Endo: + fatigue Objective Vital Signs Last Vital Signs Documentation Date Time Temp Pulse Resp B/P Pulse Ox O2 Delivery O2 Flow Rate FiO2 01/11/17 07:49 36.5 72 24 120/68 92 Room Air 01/10/17 12:07 2.0 Physical Exam: General Appearance: + moderate distress ENT: normal ENT inspection, pharynx normal Neck: supple, no adenopathy, thyroid normal, no JVD Respiratory/Chest: + decreased breath sounds, + accessory muscle use, + stridor Cardiovascular: no edema, + systolic murmur, + irregularly irregular Abdomen: normal bowel sounds, non tender, soft, no organomegaly Extremities: no pedal edema, no calf tenderness Neurologic/Psychiatric: + sensory deficit Skin: normal color, warm/dry, no rash Lymphatic: no adenopathy Assessment and Plan 1. afib persistent rate now controlled not a coumadin candidate 2. clinical deterioration significant no reversible cause noted ct head yesterday essentially unremarkable no active cardiac event suspected receiving antibiotics discussed clinical situation and very grim outcome with patient's daughter/ poa she would like patient to be made dnr will think about comfort care agreeable to her receiving morphine now to decrease air hunger npo even meds
[2017-01-11] MEDS ORDERED: MoRPHine SULFATE 2 MG/ML CARP ONE (09:27)
[2017-01-11] MEDS ORDERED: VANCOMYCIN CONSULT ACTIVE PRN (10:15)
[2017-01-11] MEDS: PANTOprazole INJ 40 MG in SYRINGE 0 ML IV SCH (11:34)
--- NOTE | 2017-01-11 11:48 | Progress Note ---
Internal Med Progress Note Date of Service: Jan 11, 2017. Provider Documentation: SUBJECTIVE: The patient was seen and examined Condition deteriorated Was seen in presence of the Daughter She is not in any acute distress OBJECTIVE: Vital Signs-as noted below Exam: General-Alert and awake Not in any distress Eyes-normal ENT-normal Neck-Supple Lungs-minimal bibasilar crackles with a lots of transmitted sounds Heart-Irregular Abdomen-Benign,no masses ,bowel sound present Extremities-Trace edema bilaterally Neuro-AA Generally very weak and lethargic Lab data as noted below. ASSESSMENT & PLAN: SEVERE SEPSIS / ISCHEMIC COLITIS Patient presented with generalized weakness, AMS and hypotension, Also had leukocytosis, lactic acidosis Stool for C diff: Negative Urine Culture: Jayde(Likely contamination, also positive in stools) MRSA Screen: Negative Blood culture: No growth to date CT abd: Likely Ischemic colitis Has been on Vancomycin and Cefepime Condition has not been getting any better ID input appreciated ,advised for a total of 3 weeks course Rapidly deteriorating Discussed with the daughter May need to put her for Comfort care down the line Altered Mental Status Due to multifactorial Metabolic Encephalopathy Appreciate Neurology input Could have embolic episodes No further tests for now LOWER GI BLEED Presented with Lower GI bleeding while in ED. 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 S/P 2 unit PRBC since hospitalization Hold Pradaxa and any other anticoagulation except prophylaxis Appreciate GI input-no scope No plans for scopes per GI Continue Mesalamine 800mg daily Hb 8.6 today CHRONIC ATRIAL FIBRILLATION/CHF Now with RVR Appreciate cardiology input Metoprolol increased for better rate control ECHO:Last ECHO: EF of 50%. No decompensation currently Continue home diuretics which were resumed today Condition deteriorated INFLAMMATORY ARTHRITIS ON CHRONIC STEROID THERAPY On methylprednisolone for inflammatory arthritis (? RA). S/P IV hydrocortisone taper Resume maintenance therapy of methylprednisolone today HYPOGLYCEMIA: Hold Lantus for now Monitor Blood sugar levels Hypoglycemia protocol HYPOKALEMIA: Resolved monitor Mag levels WNL DM II A1C: 5.0 Continue ISS, Accu checks Lantus on hold secondary to hypoglycemia HYPOTHYROIDISM TSH 5.7. Continue levothyroxine CHRONIC EDEMA H/O chronic lymphedema. Contributing factors: Hypoalbuminemia, CHF Monitor H/O CVA: No acute issues DVT PX: Heparin SQ Pradaxa discontinued CODE STATUS FULL CODE DISPOSITION Continue monitoring in Telemetry Discussed with the Daughter in detailed Continue current treatment for now Likely for comfort care in a day or two Patient is DNR Vital Signs: Date Time Temp Pulse Resp B/P Pulse Ox O2 Delivery O2 Flow Rate FiO2 01/11/17 07:49 36.5 72 24 120/68 92 Room Air 01/11/17 07:13 72 18 90 Room Air 01/11/17 04:00 Room Air 01/11/17 03:44 36.8 80 21 118/65 94 Room Air 01/11/17 00:00 36.8 77 22 114/68 93 Room Air 01/10/17 22:08 100 131/72 01/10/17 20:17 120 01/10/17 20:00 94 Room Air 01/10/17 19:53 36.8 128 22 133/92 94 Room Air 01/10/17 19:32 113 18 92 Room Air 01/10/17 16:46 36.7 112 22 113/84 97 Room Air 01/10/17 16:30 88 16 96 Room Air 01/10/17 16:00 Room Air 01/10/17 12:07 36.9 140 20 138/89 94 Nasal Cannula 2.0 01/10/17 12:00 Room Air Lab Results: Results Past 24 Hours Test 01/10/17 11:38 01/10/17 16:04 01/10/17 16:06 01/10/17 16:28 Range/Units Bedside Glucose 120 68 68 94 70-90 mg/dl Test 01/10/17 16:50 01/10/17 18:22 01/10/17 19:38 01/10/17 20:12 Range/Units Bedside Glucose 113 87 72 70-90 mg/dl Troponin I 0.048 0-0.045 ng/ml Test 01/10/17 20:43 01/10/17 23:14 01/10/17 23:40 01/11/17 01:55 Range/Units Bedside Glucose 158 109 79 70-90 mg/dl Troponin I 0.039 0-0.045 ng/ml Test 01/11/17 02:20 01/11/17 04:32 01/11/17 06:17 01/11/17 06:41 Range/Units Bedside Glucose 136 82 99 70-90 mg/dl Hemoglobin 8.6 12.0-16.0 g/dL Hematocrit 25.6 37-47 % Sodium Level 138 136-145 mmol/L Potassium Level 3.8 3.5-5.1 mmol/L Chloride Level 105 98-107 mmol/L Carbon Dioxide Level 26 21-32 mmol/L Anion Gap 7.0 3-11 mmol/L Blood Urea Nitrogen 20 7-18 mg/dl Creatinine 0.97 0.60-1.20 mg/dl Est Creatinine Clear Calc Drug Dose 39.0 ml/min Estimated GFR () 60.9 Estimated GFR (Non- 52.5 BUN/Creatinine Ratio 20.6 10-20 Random Glucose 96 70-99 mg/dl Calcium Level 7.1 8.5-10.1 mg/dl Test 01/11/17 09:08 Range/Units
[2017-01-11] MEDS ORDERED: LORAZEPAM 2 MG/ML 1 ML VIAL IV PRN (13:00)
[2017-01-11] MEDS: MoRPHine SULFATE 2 MG/ML CARP IV PRN ×2 (13:14→18:24)
[2017-01-11] MEDS: SCOPOLAMINE 1.5 MG TDSY TD SCH (14:24)
[2017-01-11] MEDS: CHECK SCOPOLAMINE PATCH PLACEMENT SCH (15:51)
--- NOTE | 2017-01-11 17:30 | PROGRESS NOTE ---
DATE: 01/11/2017 HISTORY OF PRESENT ILLNESS: Shena has been moved to the fourth floor and placed on comfort care. Neurologically, she remains alert but is more confused and quite lethargic. Again, we do not have any clear focal neurologic signs and it is quite possible that she could have thrown an embolic shower from her atrial fibrillation. Since she is on comfort care, it implies that we are not going to do any further diagnostic studies or offer any active therapy and frankly I would concur with this as in the setting of active GI bleeding, it would be hard to offer any anticoagulation even if we were going to demonstrate embolic infarcts on MRI which she is not going to be done. Neurology therefore is going to sign off the case at this point. Please feel free to reconsult if the situation changes. AKBAR
[2017-01-11] MEDS: LORAZEPAM INJ 0.25 MG in SYRINGE 0.125 ML IV PRN (19:51)
[2017-01-12] MEDS: CHECK SCOPOLAMINE PATCH PLACEMENT SCH ×3 (00:08→15:42)
[2017-01-12] MEDS: LORAZEPAM INJ 0.25 MG in SYRINGE 0.125 ML IV PRN ×3 (03:00→11:36)
[2017-01-12] MEDS: ATROPINE SULFATE 1% OP SOLN 5 ML BTL PO PRN (08:00)
[2017-01-12] MEDS: MoRPHine SULFATE 2 MG/ML CARP IV PRN ×2 (08:00→11:37)
--- NOTE | 2017-01-12 12:11 | Progress Note ---
Internal Med Progress Note Date of Service: Jan 12, 2017. Provider Documentation: SUBJECTIVE: The patient was seen and examined Condition deteriorated Was seen in presence of the Daughter Has been on Comfort care since yesterday OBJECTIVE: Vital Signs-as noted below Exam: General-Alert and awake Not in any distress Eyes-normal ENT-normal Neck-Supple Lungs-minimal bibasilar crackles with a lots of transmitted sounds Heart-Irregular Abdomen-Benign,no masses ,bowel sound present Extremities-Trace edema bilaterally Neuro-AA Generally very weak and lethargic Lab data as noted below. ASSESSMENT & PLAN: SEVERE SEPSIS / ISCHEMIC COLITIS Patient presented with generalized weakness, AMS and hypotension, Also had leukocytosis, lactic acidosis Stool for C diff: Negative Urine Culture: Jayde(Likely contamination, also positive in stools) MRSA Screen: Negative Blood culture: No growth to date CT abd: Likely Ischemic colitis Has been on Vancomycin and Cefepime Condition has not been getting any better ID input appreciated ,advised for a total of 3 weeks course Rapidly deteriorating Discussed with the daughter again and again Has been on comfort care since yesterday Remains critical but stable Altered Mental Status Due to multifactorial Metabolic Encephalopathy Appreciate Neurology input Could have embolic episodes No further tests for now LOWER GI BLEED Presented with Lower GI bleeding while in ED. 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 No decompensation currently Continue home diuretics which were resumed today Condition deteriorated-now on comfort care INFLAMMATORY ARTHRITIS ON CHRONIC STEROID THERAPY On methylprednisolone for inflammatory arthritis (? RA). S/P IV hydrocortisone taper Resume maintenance therapy of methylprednisolone today HYPOGLYCEMIA: Hold Lantus for now Monitor Blood sugar levels Hypoglycemia protocol HYPOKALEMIA: Resolved monitor Mag levels WNL DM II A1C: 5.0 Continue ISS, Accu checks Lantus on hold secondary to hypoglycemia HYPOTHYROIDISM TSH 5.7. Continue levothyroxine CHRONIC EDEMA H/O chronic lymphedema. Contributing factors: Hypoalbuminemia, CHF Monitor H/O CVA: No acute issues DVT PX: Heparin SQ Pradaxa discontinued CODE STATUS FULL CODE DISPOSITION Continue monitoring in Telemetry Discussed with the Daughter in detailed Continue current supportive care for now Vital Signs: Date Time Temp Pulse Resp B/P Pulse Ox O2 Delivery O2 Flow Rate FiO2 01/12/17 08:35 Room Air 01/12/17 00:00 Room Air 01/11/17 19:45 Room Air 01/11/17 16:00 Nasal Cannula 2.0
[2017-01-12] MEDS ORDERED: VANCOMYCIN TROUGH ONE (21:30)
[2017-01-13] MEDS: CHECK SCOPOLAMINE PATCH PLACEMENT SCH ×4 (00:05→23:46)
[2017-01-13] MEDS: ATROPINE SULFATE 1% OP SOLN 5 ML BTL PO PRN ×4 (05:57→18:43)
[2017-01-13 07:30] VITALS: BP 144/79; PULSE 107; TEMP 36.9; O2SAT 92
[2017-01-13] MEDS: MoRPHine SULFATE 2 MG/ML CARP IV PRN (14:00)
--- NOTE | 2017-01-13 15:26 | Neurology Progress Notes ---
Neurology Progress Note Date of Service Jan 13, 2017. 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 She was hospitalized at [facility] on 12/28/16 for cellulitis and septic olecranon bursitis LUE, cultures were taken and she was started on IV antibiotics. She was then transferred to [facility] for the IV cipro and vanco and PT on 01/03/17. on 01/05 she was weak and minimally responsive with SBP 70. she was started on fluid resuscitation and brought to the ED. She was found to have a GI bleed and the Dabigatran was d/c. Her heart rate has been increasing and cardiology is working on the rate and did an ECHO which showed EF 45-50%, grade 3 diastolic dysfunction, calcified aortic valve, with mild aortic stenosis, severe biatrial enlargement, and PA systolic pressure of 37 mmHg. she is currently on heparin 5000 U SQ. Her daughters are in the room and state she had been awake all morning. She had some orange juice and some mash potatoes earlier. Objective Date Time Temp Pulse Resp B/P Pulse Ox O2 Delivery O2 Flow Rate FiO2 01/13/17 08:00 Room Air 01/13/17 07:30 36.9 107 18 144/79 92 Room Air 01/13/17 00:14 Room Air 01/12/17 20:20 Room Air 01/12/17 16:00 Room Air no new labs Imaging: no new images Exam: Physical Exam: Constitutional: appearance nourished, pale, ill appearing, right IJ in place Ears, Nose, Mouth and Throat: mucous membranes moist, no injection and skin normal, eyes normal Cardiovascular: irregular irregular Respiratory: course breath sounds Musculoskeletal bilateral LE edema right > left Skin: some skin breakdown on LE Eyes: PERRLA NEUROLOGIC EXAMINATION: Mental status: lethargic but awakes with voice commend Oriented to person Cranial Nerves facial symmetry Sensory: light touch Gait/Stance: Posture lying in bed Motor: move all ext with stimulation Strength: unable to assess Current Inpatient Medications Medications (Trade) Dose Ordered Sig/Nanda Route Start Time Stop Time Status Last Admin Dose Admin Morphine Sulfate (MoRPHine SULFATE INJ) 2 mg Q1HWA PRN IV 01/11/17 11:15 01/25/17 11:14 01/13/17 14:00 2 MG Lorazepam (Ativan Inj) 0.25 mg Q2H PRN IV 01/11/17 13:00 02/10/17 12:59 Scopolamine (Transderm-Scop Patch) 1.5 mg Q72H TD 01/11/17 13:00 02/10/17 12:59 01/11/17 14:24 1.5 MG Miscellaneous (Remove Transderm-Scop Patch) 1 ea Q72H N/A 01/14/17 13:00 02/13/17 12:59 Miscellaneous Information (Check Scopolamine Patch Placement) 1 ea QS N/A 01/11/17 16:00 02/10/17 15:59 01/13/17 08:05 1 EA Atropine Sulfate 4 drops 4 drops Q4H PRN PO 01/11/17 13:00 02/10/17 12:59 01/13/17 13:59 4 DROPS Lorazepam/Syringe (Ativan Inj/ Syringe) 0.25 ml @ 1 mls/min Q2H PRN IV 01/11/17 13:30 02/10/17 13:29 01/12/17 11:36 1 MLS/MIN Heparin Sodium (Porcine) (Heparin 10 Unit/ ml 5 ml Flush) 5 ml PRN PRN FLUSH 01/11/17 20:00 02/10/17 19:59 01/13/17 14:00 5 ML Impression 86 year old female current sepsis treatment, known afib, CHF Plan 1. CT head -repeat ordered 2. ? possible dementia with hospital delirium but she does not seem overtly delirious according to family in room she is doing much better today 3. continue to correct lytes 4. now requiring 2 L O2- CHF 5. not focal weakness on exam -could MRI brain at some point but not urgent- may have had an embolic shower but unable to change treatment at this time 6. correct metabolic causes 7. last check of H/H still falling will defer to primary team for evaluation I have seen and discussed above patient with Dr Nola Zavala, neurology Pt seen and examined. Currently sedated. Pt appeared to have delirium, no focal abnl on prior exam. Pt currently off AC for afib, bc GI bleed. Will monitor. If it would management professor, would consider MRI brain. ADEBAYO Zavala MD
--- NOTE | 2017-01-13 16:15 | Progress Note ---
Internal Med Progress Note Date of Service: Jan 13, 2017. Provider Documentation: SUBJECTIVE: The patient was seen and examined Condition improved Was seen in presence of the Daughter Extremely weak but communicating well OBJECTIVE: Vital Signs-as noted below Exam: General-Alert and awake Not in any distress but very weak Eyes-normal ENT-normal Neck-Supple Lungs-minimal bibasilar crackles Otherwise clear Heart-Irregular Abdomen-Benign,no masses ,bowel sound present Extremities-Trace edema bilaterally Neuro-AA Generally very weak and lethargic Lab data as noted below. ASSESSMENT & PLAN: Clinically better today Started on Mechanical soft diet Will advance as tolerated Plan to restart oral medication if keeps improving SEVERE SEPSIS / ISCHEMIC COLITIS Patient presented with generalized weakness, AMS and hypotension, Also had leukocytosis, lactic acidosis Stool for C diff: Negative Urine Culture: Jayde(Likely contamination, also positive in stools) MRSA Screen: Negative Blood culture: No growth to date CT abd: Likely Ischemic colitis Has been on Vancomycin and Cefepime Condition has not been getting any better ID input appreciated ,advised for a total of 3 weeks course Was deteriorating rapidly Discussed with the daughter again and again Has been on comfort care since yesterday Clinically improves a lot today Altered Mental Status Due to multifactorial Metabolic Encephalopathy Appreciate Neurology input Could have embolic episodes No further tests for now LOWER GI BLEED Presented with Lower GI bleeding while in ED. 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 No decompensation currently Continue home diuretics which were resumed today Condition deteriorated-now on comfort care INFLAMMATORY ARTHRITIS ON CHRONIC STEROID THERAPY On methylprednisolone for inflammatory arthritis (? RA). S/P IV hydrocortisone taper Resume maintenance therapy of methylprednisolone today HYPOGLYCEMIA: Hold Lantus for now Monitor Blood sugar levels Hypoglycemia protocol HYPOKALEMIA: Resolved monitor Mag levels WNL DM II A1C: 5.0 Continue ISS, Accu checks Lantus on hold secondary to hypoglycemia HYPOTHYROIDISM TSH 5.7. Medication is on hold CHRONIC EDEMA H/O chronic lymphedema. Contributing factors: Hypoalbuminemia, CHF Monitor H/O CVA: No acute issues DVT PX: Heparin SQ Pradaxa discontinued CODE STATUS FULL CODE DISPOSITION Awaited Vital Signs: Date Time Temp Pulse Resp B/P Pulse Ox O2 Delivery O2 Flow Rate FiO2 01/13/17 08:00 Room Air 01/13/17 07:30 36.9 107 18 144/79 92 Room Air 01/13/17 00:14 Room Air 01/12/17 20:20 Room Air
[2017-01-14] MEDS: CHECK SCOPOLAMINE PATCH PLACEMENT SCH ×2 (08:07→15:32)
[2017-01-14] MEDS ORDERED: FUROSEMIDE INJ 40 MG in SYRINGE 0 ML IV ONE (08:45)
[2017-01-14 08:48] VITALS: BP 106/72; PULSE 128; TEMP 36.5
[2017-01-14] MEDS: METOPROLOL SUCC 25MG EXT REL TAB PO SCH (09:06)
[2017-01-14 10:55] LABS: HEMATOCRIT 31.8 % (37-47); MEAN CELL VOLUME 96.1 fL (80-100); MEAN CORPUSCULAR HEMOGLOBIN 30.8 pg (25-34); MEAN CORPUSCULAR HGB CONC 32.1 g/dl (32-36); MEAN PLATELET VOLUME 9.5 fL (7.4-10.4); PLATELET COUNT 180 K/uL (130-400); RED BLOOD COUNT 3.31 M/uL (4.2-5.4); WHITE BLOOD COUNT 7.31 K/uL (4.8-10.8)
[2017-01-14 11:45] LABS: BUN/CREATININE RATIO 21.5 (10-20); CALCIUM 7.9 mg/dl (8.5-10.1); CREATININE 1.4 mg/dl (0.60-1.20); MAGNESIUM 2.4 mg/dl (1.8-2.4); PHOSPHORUS 3.6 mg/dl (2.5-4.9)
[2017-01-14] MEDS ORDERED: DEXTROSE 50% 50 ML SYR ONE (11:58)
[2017-01-14] MEDS: SCOPOLAMINE 1.5 MG TDSY TD SCH (12:48)
[2017-01-14] MEDS: D5NSS + 20MEQ KCL 1,000 ML IV SCH (12:48)
--- NOTE | 2017-01-14 12:53 | Progress Note ---
Internal Med Progress Note Date of Service: Jan 14, 2017. Provider Documentation: SUBJECTIVE: The patient was seen and examined Condition improved Has been taking medications orally Remains extremely weak and lethargic OBJECTIVE: Vital Signs-as noted below Exam: General-Alert and awake Not in any distress but very weak Eyes-normal ENT-normal Neck-Supple Lungs-minimal bibasilar crackles Otherwise clear Heart-Irregular Abdomen-Benign,no masses ,bowel sound present Extremities-Trace edema bilaterally Neuro-AA Generally very weak and lethargic Lab data as noted below. ASSESSMENT & PLAN: Clinically better today Started on Mechanical soft diet Will advance as tolerated Plan to restart oral medication if keeps improving Started on Toprol XL SEVERE SEPSIS / ISCHEMIC COLITIS Patient presented with generalized weakness, AMS and hypotension, Also had leukocytosis, lactic acidosis Stool for C diff: Negative Urine Culture: Jayde(Likely contamination, also positive in stools) MRSA Screen: Negative Blood culture: No growth to date CT abd: Likely Ischemic colitis Has been on Vancomycin and Cefepime Condition has not been getting any better ID input appreciated ,advised for a total of 3 weeks course Was deteriorating rapidly Discussed with the daughter again and again Has been on comfort care since 01/11/17 Clinically much better Blood counts are reasonable WCC -normal ,Blood glucose low and Mild MEGAN Plan to start other medications gradually if continue to improve-discussed with the daughter Altered Mental Status Due to multifactorial Metabolic Encephalopathy Appreciate Neurology input Could have embolic episodes No further tests now LOWER GI BLEED Presented with Lower GI bleeding while in ED. 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 S/P IV hydrocortisone taper Resume maintenance therapy of methylprednisolone on further improvement HYPOGLYCEMIA: Hold Lantus for now Monitor Blood sugar levels Hypoglycemia protocol HYPOKALEMIA: Resolved monitor Mag levels WNL DM II A1C: 5.0 Continue ISS, Accu checks Lantus on hold secondary to hypoglycemia HYPOTHYROIDISM TSH 5.7. Medication is on hold CHRONIC EDEMA H/O chronic lymphedema. Contributing factors: Hypoalbuminemia, CHF Monitor H/O CVA: No acute issues DVT PX: Heparin SQ Pradaxa discontinued CODE STATUS FULL CODE DISPOSITION Awaited Vital Signs: Date Time Temp Pulse Resp B/P Pulse Ox O2 Delivery O2 Flow Rate FiO2 01/14/17 08:48 36.5 128 19 106/72 01/14/17 08:00 Room Air 01/14/17 01:45 Room Air 01/13/17 16:00 Room Air Lab Results: Results Past 24 Hours Test 01/14/17 10:20 01/14/17 12:24 Range/Units White Blood Count 7.31 4.8-10.8 K/uL Red Blood Count 3.31 4.2-5.4 M/uL Hemoglobin 10.2 12.0-16.0 g/dL Hematocrit 31.8 37-47 % Mean Corpuscular Volume 96.1 80-100 fL Mean Corpuscular Hemoglobin 30.8 25-34 pg Mean Corpuscular Hemoglobin Concent 32.1 32-36 g/dl RDW Standard Deviation 61.1 36.4-46.3 fL RDW Coefficient of Variation 17.3 11.5-14.5 % Platelet Count 180 130-400 K/uL Mean Platelet Volume 9.5 7.4-10.4 fL Sodium Level 142 136-145 mmol/L Potassium Level 4.0 3.5-5.1 mmol/L Chloride Level 109 98-107 mmol/L Carbon Dioxide Level 20 21-32 mmol/L Anion Gap 13.0 3-11 mmol/L Blood Urea Nitrogen 30 7-18 mg/dl Creatinine 1.40 0.60-1.20 mg/dl Est Creatinine Clear Calc Drug Dose 24.4 ml/min Estimated GFR () 39.1 Estimated GFR (Non- 33.7 BUN/Creatinine Ratio 21.5 10-20 Random Glucose 48 70-99 mg/dl Calcium Level 7.9 8.5-10.1 mg/dl Phosphorus Level 3.6 2.5-4.9 mg/dl Magnesium Level 2.4 1.8-2.4 mg/dl Total Bilirubin 0.5 0.2-1 mg/dl Direct Bilirubin 0.1 0-0.2 mg/dl Aspartate Amino Transf (AST/SGOT) 37 15-37 U/L Alanine Aminotransferase (ALT/SGPT) 21 12-78 U/L Alkaline Phosphatase 74 45-117 U/L Total Protein 4.9 6.4-8.2 gm/dl Albumin 1.6 3.4-5.0 gm/dl Bedside Glucose 85 70-90 mg/dl
--- NOTE | 2017-01-14 13:22 | Neurology Progress Notes ---
Neurology Progress Note Date of Service Jan 14, 2017. 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 She was hospitalized at [facility] on 12/28/16 for cellulitis and septic olecranon bursitis LUE, cultures were taken and she was started on IV antibiotics. She was then transferred to [facility] for the IV cipro and vanco and PT on 01/03/17. on 01/05 she was weak and minimally responsive with SBP 70. she was started on fluid resuscitation and brought to the ED. She was found to have a GI bleed and the Dabigatran was d/c. Her heart rate has been increasing and cardiology is working on the rate and did an ECHO which showed EF 45-50%, grade 3 diastolic dysfunction, calcified aortic valve, with mild aortic stenosis, severe biatrial enlargement, and PA systolic pressure of 37 mmHg. she is currently on heparin 5000 U SQ She is sleeping when entering the room. Wakes with voice and states she is very tired. no family in room Objective Date Time Temp Pulse Resp B/P Pulse Ox O2 Delivery O2 Flow Rate FiO2 01/14/17 08:48 36.5 128 19 106/72 01/14/17 08:00 Room Air 01/14/17 01:45 Room Air 01/13/17 16:00 Room Air Last 24 Hours Test 01/14/17 10:20 01/14/17 12:24 White Blood Count 7.31 K/uL Red Blood Count 3.31 M/uL Hemoglobin 10.2 g/dL Hematocrit 31.8 % Mean Corpuscular Volume 96.1 fL Mean Corpuscular Hemoglobin 30.8 pg Mean Corpuscular Hemoglobin Concent 32.1 g/dl RDW Standard Deviation 61.1 fL RDW Coefficient of Variation 17.3 % Platelet Count 180 K/uL Mean Platelet Volume 9.5 fL Sodium Level 142 mmol/L Potassium Level 4.0 mmol/L Chloride Level 109 mmol/L Carbon Dioxide Level 20 mmol/L Anion Gap 13.0 mmol/L Blood Urea Nitrogen 30 mg/dl Creatinine 1.40 mg/dl Est Creatinine Clear Calc Drug Dose 24.4 ml/min Estimated GFR () 39.1 Estimated GFR (Non- 33.7 BUN/Creatinine Ratio 21.5 Random Glucose 48 mg/dl Calcium Level 7.9 mg/dl Phosphorus Level 3.6 mg/dl Magnesium Level 2.4 mg/dl Total Bilirubin 0.5 mg/dl Direct Bilirubin 0.1 mg/dl Aspartate Amino Transf (AST/SGOT) 37 U/L Alanine Aminotransferase (ALT/SGPT) 21 U/L Alkaline Phosphatase 74 U/L Total Protein 4.9 gm/dl Albumin 1.6 gm/dl Bedside Glucose 85 mg/dl Imaging: no new imaging Exam: Physical Exam: Constitutional: appearance pale ill appearing, IJ left in place Ears, Nose, Mouth and Throat: mucous membranes moist, no injection and skin normal, eyes normal Cardiovascular: irregular irregular Respiratory: course breath sound Musculoskeletal: moderate peripheral edema Skin: skin break down LE Eyes: extraocular muscles intact (EOMI) and pupils equal, round and reactive to light (PERRL), gross peripheral mccrary in tact NEUROLOGIC EXAMINATION: Mental status: Alert with voice command, states very tired, knows she is in the hospital and but thinks its 2016 Cranial Nerves facial symmetry Sensory: intact to light touch Gait/Stance: Posture lying in bed Strength: squeezes bilaterally with hands generalized weakness, lifts legs against gravity but not against resistance Current Inpatient Medications Medications (Trade) Dose Ordered Sig/Nanda Route Start Time Stop Time Status Last Admin Dose Admin Morphine Sulfate (MoRPHine SULFATE INJ) 2 mg Q1HWA PRN IV 01/11/17 11:15 01/25/17 11:14 01/13/17 14:00 2 MG Lorazepam (Ativan Inj) 0.25 mg Q2H PRN IV 01/11/17 13:00 02/10/17 12:59 01/14/17 08:26 0.25 MG Scopolamine (Transderm-Scop Patch) 1.5 mg Q72H TD 01/11/17 13:00 02/10/17 12:59 01/14/17 12:48 1.5 MG Miscellaneous (Remove Transderm-Scop Patch) 1 ea Q72H N/A 01/14/17 13:00 02/13/17 12:59 01/14/17 12:48 1 EA Miscellaneous Information (Check Scopolamine Patch Placement) 1 ea QS N/A 01/11/17 16:00 02/10/17 15:59 01/14/17 08:07 1 EA Atropine Sulfate 4 drops 4 drops Q4H PRN PO 01/11/17 13:00 02/10/17 12:59 01/13/17 18:43 4 DROPS Lorazepam/Syringe (Ativan Inj/ Syringe) 0.25 ml @ 1 mls/min Q2H PRN IV 01/11/17 13:30 02/10/17 13:29 01/12/17 11:36 1 MLS/MIN Heparin Sodium (Porcine) (Heparin 10 Unit/ ml 5 ml Flush) 5 ml PRN PRN FLUSH 01/11/17 20:00 02/10/17 19:59 01/14/17 12:00 5 ML Metoprolol Succinate (Toprol Xl Tab) 25 mg QAM PO 01/15/17 08:00 02/14/17 07:59 01/14/17 09:06 25 MG Gabapentin 300 mg 300 mg QAM PO 01/15/17 08:00 02/14/17 07:59 Potassium Chloride/Dextrose/ Sod Cl (D5nss + 20meq KCl) 1,000 ml @ 50 mls/hr Q20H IV 01/14/17 12:30 02/13/17 12:29 01/14/17 12:48 50 MLS/HR Impression 86 year old female current sepsis treatment, known afib, CHF Plan 1. CT head -repeat ordered- no new findings 2. mild dementia with hospital delirium but she does not seem overtly delirious according to family she was "sharp as a tack" prior to illness 3. continue to correct lytes 4. now no longer requiring O2 RA currently 5. not focal weakness on exam -could MRI brain at some point but not urgent- may have had an embolic shower but unable to change treatment at this time 6. correct metabolic causes 7. last check of H/H improving 8. avoid ativan if possible due to sedation 9. will sign off for now call with questions concerns or if any abnormal jerking tremor occurs I have seen and discussed above patient with Dr Nola Zavala, neurology Pt seen and examined, pt improving gradually. Will sign off. Please reconsult if needed, ADEBAYO Zavala MD
[2017-01-14] MEDS ORDERED: HYDROCORTISONE IV 100 MG in SYRINGE 0 ML IV ONE (15:46)
[2017-01-14 16:05] VITALS: BP 132/88; PULSE 69; TEMP 36.7; O2SAT 93
[2017-01-14] MEDS: HYDROCORTISONE IV 100 MG in SYRINGE 0 ML IV SCH (16:41)
[2017-01-14 21:55] VITALS: BP 122/80; PULSE 98; TEMP 36.3
[2017-01-15] VITALS (7 sets, daily range): BP systolic 133–151; BP diastolic 75–95; PULSE 83–99; TEMP 36.3–36.9; O2SAT 93–100
[2017-01-15] MEDS: HYDROCORTISONE IV 100 MG in SYRINGE 0 ML IV SCH ×3 (01:21→20:21)
[2017-01-15] MEDS: D5NSS + 20MEQ KCL 1,000 ML IV SCH (07:45)
[2017-01-15] MEDS: GABAPENTIN 300 MG CAP PO SCH (07:48)
[2017-01-15] MEDS: METOPROLOL SUCC 25MG EXT REL TAB PO SCH (07:48)
[2017-01-15] MEDS: CHECK SCOPOLAMINE PATCH PLACEMENT SCH ×2 (07:49)
[2017-01-15] MEDS ORDERED: LEVOTHYROXINE 88 MCG TAB PO ONE (09:02)
[2017-01-15] MEDS ORDERED: FUROSEMIDE INJ 40 MG in SYRINGE 0 ML IV STA (09:08)
--- NOTE | 2017-01-15 10:10 | Progress Note ---
Internal Med Progress Note Date of Service: Jan 15, 2017. Provider Documentation: SUBJECTIVE: The patient was seen and examined Condition improved a lot Has been taking medications orally and eating normally Wants top go home OBJECTIVE: Vital Signs-as noted below Exam: General-Alert and awake Not in any distress Eyes-normal ENT-normal Neck-Supple Lungs-minimal bibasilar crackles Otherwise clear Heart-Irregular Abdomen-Benign,no masses ,bowel sound present Extremities-Trace edema bilaterally Neuro-AA Generally very weak and lethargic Lab data as noted below. ASSESSMENT & PLAN: Clinically Much better Started on Mechanical soft diet and advanced as tolerated All of her oral medications have been started except Pradaxa Will advise PT/OT evaluation SEVERE SEPSIS / ISCHEMIC COLITIS Patient presented with generalized weakness, AMS and hypotension, Also had leukocytosis, lactic acidosis Stool for C diff: Negative Urine Culture: Jayde(Likely contamination, also positive in stools) MRSA Screen: Negative Blood culture: No growth to date CT abd: Likely Ischemic colitis Has been on Vancomycin and Cefepime Condition has not been getting any better ID input appreciated ,advised for a total of 3 weeks course Was deteriorating rapidly Discussed with the daughter again and again Has been on comfort care since 01/11/17 Clinically much better Blood counts are reasonable WCC -normal ,Blood glucose low and Mild MEGAN Plan to start other medications gradually if continue to improve-discussed with the daughter No antibiotic yet Check CXR tomorrow Altered Mental Status Due to multifactorial Metabolic Encephalopathy Appreciate Neurology input Could have embolic episodes No further tests now Resolved now LOWER GI BLEED Presented with Lower GI bleeding while in ED. 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 S/P IV hydrocortisone Resumed maintenance therapy of methylprednisolone HYPOGLYCEMIA: Hold Lantus for now Monitor Blood sugar levels Hypoglycemia protocol Will need to restart Lantus HYPOKALEMIA: Resolved monitor Mag levels WNL DM II A1C: 5.0 Continue ISS, Accu checks Lantus on hold secondary to hypoglycemia HYPOTHYROIDISM TSH 5.7. Medication restarted CHRONIC EDEMA H/O chronic lymphedema. Contributing factors: Hypoalbuminemia, CHF Monitor H/O CVA: No acute issues DVT PX: Heparin SQ Pradaxa discontinued CODE STATUS FULL CODE DISPOSITION Likely to discharge in 2-3 days Vital Signs: Date Time Temp Pulse Resp B/P Pulse Ox O2 Delivery O2 Flow Rate FiO2 01/15/17 07:24 36.3 97 18 151/89 96 Room Air 01/15/17 04:52 36.5 99 18 149/94 100 Room Air 01/15/17 00:00 93 Room Air 01/14/17 21:55 36.3 98 18 122/80 Room Air 01/14/17 16:05 36.7 69 18 132/88 93 Room Air 01/14/17 16:00 Room Air Lab Results: Results Past 24 Hours Test 01/14/17 10:20 01/14/17 12:24 01/14/17 16:40 01/15/17 02:26 Range/Units White Blood Count 7.31 4.8-10.8 K/uL Red Blood Count 3.31 4.2-5.4 M/uL Hemoglobin 10.2 12.0-16.0 g/dL Hematocrit 31.8 37-47 % Mean Corpuscular Volume 96.1 80-100 fL Mean Corpuscular Hemoglobin 30.8 25-34 pg Mean Corpuscular Hemoglobin Concent 32.1 32-36 g/dl RDW Standard Deviation 61.1 36.4-46.3 fL RDW Coefficient of Variation 17.3 11.5-14.5 % Platelet Count 180 130-400 K/uL Mean Platelet Volume 9.5 7.4-10.4 fL Sodium Level 142 136-145 mmol/L Potassium Level 4.0 3.5-5.1 mmol/L Chloride Level 109 98-107 mmol/L Carbon Dioxide Level 20 21-32 mmol/L Anion Gap 13.0 3-11 mmol/L Blood Urea Nitrogen 30 7-18 mg/dl Creatinine 1.40 0.60-1.20 mg/dl Est Creatinine Clear Calc Drug Dose 24.4 ml/min Estimated GFR () 39.1 Estimated GFR (Non- 33.7 BUN/Creatinine Ratio 21.5 10-20 Random Glucose 48 70-99 mg/dl Calcium Level 7.9 8.5-10.1 mg/dl Phosphorus Level 3.6 2.5-4.9 mg/dl Magnesium Level 2.4 1.8-2.4 mg/dl Total Bilirubin 0.5 0.2-1 mg/dl Direct Bilirubin 0.1 0-0.2 mg/dl Aspartate Amino Transf (AST/SGOT) 37 15-37 U/L Alanine Aminotransferase (ALT/SGPT) 21 12-78 U/L Alkaline Phosphatase 74 45-117 U/L Total Protein 4.9 6.4-8.2 gm/dl Albumin 1.6 3.4-5.0 gm/dl Bedside Glucose 85 82 149 70-90 mg/dl Test 01/15/17 07:50 Range/Units Bedside Glucose 192 70-90 mg/dl
[2017-01-16] MEDS: LEVOTHYROXINE 88 MCG TAB PO SCH (05:51)
[2017-01-16 06:17] LABS: HEMATOCRIT 27.7 % (37-47); MEAN CELL VOLUME 95.8 fL (80-100); MEAN CORPUSCULAR HEMOGLOBIN 30.1 pg (25-34); MEAN CORPUSCULAR HGB CONC 31.4 g/dl (32-36); MEAN PLATELET VOLUME 9.7 fL (7.4-10.4); PLATELET COUNT 159 K/uL (130-400); RED BLOOD COUNT 2.89 M/uL (4.2-5.4); WHITE BLOOD COUNT 5.68 K/uL (4.8-10.8)
[2017-01-16 06:48] VITALS: BP 153/80; PULSE 93; TEMP 36.3; O2SAT 100
[2017-01-16 06:51] LABS: BUN/CREATININE RATIO 22.4 (10-20); CALCIUM 7.7 mg/dl (8.5-10.1); CREATININE 1.5 mg/dl (0.60-1.20); MAGNESIUM 2.2 mg/dl (1.8-2.4); POTASSIUM 4.4 mmol/L (3.5-5.1)
[2017-01-16] MEDS: METOPROLOL SUCC 25MG EXT REL TAB PO SCH (08:13)
[2017-01-16] MEDS: ASPIRIN 81 MG ECTAB PO SCH (08:14)
[2017-01-16] MEDS: GABAPENTIN 300 MG CAP PO SCH (08:14)
[2017-01-16] MEDS: MESALAMINE 400 MG CAPDR PO SCH (08:14)
[2017-01-16] MEDS: PANTOprazole SOD 40 MG TAB PO SCH (08:14)
[2017-01-16] MEDS: HYDROCORTISONE IV 100 MG in SYRINGE 0 ML IV SCH (08:15)
[2017-01-16] MEDS: METHYLPREDNISOLONE 4 MG TAB PO SCH (08:15)
--- NOTE | 2017-01-16 09:57 | DIAGNOSTIC IMAGING REPORT ---
CHEST ONE VIEW PORTABLE HISTORY: Sepsis. COMPARISON: None. FINDINGS: Cardiomegaly and small bilateral pleural effusions persist. Bibasilar densities are unchanged. There are poststernotomy changes. The upper lung zones are clear. No pneumothorax. Mild pulmonary vascular congestion persist. Right jugular catheter terminates in the SVC. IMPRESSION: No change from the prior study. Cardiomegaly, small bilateral pleural effusions, and mild pulmonary vascular congestion persist. Electronically signed by: Tim Webster M.D. 01/16/2017 9:54 AM Dictated Date/Time: 01/16/2017 9:53 AM
[2017-01-16 11:36] VITALS: BP 106/70; PULSE 88; TEMP 36.4; O2SAT 100
--- NOTE | 2017-01-16 14:17 | Progress Note ---
Internal Med Progress Note Date of Service: Jan 16, 2017. Provider Documentation: SUBJECTIVE: The patient was seen and examined Condition improved a lot Eating normally Denies any symptoms OBJECTIVE: Vital Signs-as noted below Exam: General-Alert and awake Not in any distress Eyes-normal ENT-normal Neck-Supple Lungs-minimal bibasilar crackles Otherwise clear Heart-Irregular Abdomen-Benign,no masses ,bowel sound present Extremities-Trace edema bilaterally Neuro-AA Generally very weak and lethargic-improved a lot Lab data as noted below. ASSESSMENT & PLAN: Clinically Much better Started on Mechanical soft diet and advanced as tolerated All of her oral medications have been started except Pradaxa Will advise PT/OT evaluation Social service discharge planning SEVERE SEPSIS / ISCHEMIC COLITIS Patient presented with generalized weakness, AMS and hypotension, Also had leukocytosis, lactic acidosis Stool for C diff: Negative Urine Culture: Jayde(Likely contamination, also positive in stools) MRSA Screen: Negative Blood culture: No growth to date CT abd: Likely Ischemic colitis Has been on Vancomycin and Cefepime Condition has not been getting any better ID input appreciated ,advised for a total of 3 weeks course Was deteriorating rapidly Discussed with the daughter again and again Was on Comfort care Improved subsequently WCC -normal ,Blood glucose low and Mild MEGAN Plan to start other medications gradually if continue to improve-discussed with the daughter No antibiotic yet Check CXR tomorrow-no change compared with prior but the patient shows much improvement -no action Altered Mental Status Due to multifactorial Metabolic Encephalopathy Appreciate Neurology input Could have embolic episodes No further tests now Resolved now LOWER GI BLEED Presented with Lower GI bleeding while in ED. 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 S/P IV hydrocortisone Resumed maintenance therapy of methylprednisolone HYPOGLYCEMIA: Hold Lantus for now Monitor Blood sugar levels Hypoglycemia protocol Will need to restart Lantus HYPOKALEMIA: Resolved monitor Mag levels WNL DM II A1C: 5.0 Continue ISS, Accu checks Lantus on hold secondary to hypoglycemia HYPOTHYROIDISM TSH 5.7. Medication restarted CHRONIC EDEMA H/O chronic lymphedema. Contributing factors: Hypoalbuminemia, CHF Monitor H/O CVA: No acute issues DVT PX: Heparin SQ Pradaxa discontinued CODE STATUS FULL CODE DISPOSITION Likely to discharge in 2-3 days Vital Signs: Date Time Temp Pulse Resp B/P Pulse Ox O2 Delivery O2 Flow Rate FiO2 01/16/17 11:36 36.4 88 18 106/70 100 Room Air 01/16/17 08:00 Nasal Cannula 2.0 01/16/17 06:48 36.3 93 16 153/80 100 Nasal Cannula 2.0 01/16/17 00:30 Nasal Cannula 2.0 01/15/17 22:43 36.7 86 18 133/82 100 Nasal Cannula 2.0 01/15/17 19:39 36.6 83 16 144/95 01/15/17 17:00 Room Air 01/15/17 15:54 36.9 94 18 133/75 93 Room Air Lab Results: Results Past 24 Hours Test 01/15/17 19:41 01/16/17 05:50 Range/Units Bedside Glucose 139 70-90 mg/dl White Blood Count 5.68 4.8-10.8 K/uL Red Blood Count 2.89 4.2-5.4 M/uL Hemoglobin 8.7 12.0-16.0 g/dL Hematocrit 27.7 37-47 % Mean Corpuscular Volume 95.8 80-100 fL Mean Corpuscular Hemoglobin 30.1 25-34 pg Mean Corpuscular Hemoglobin Concent 31.4 32-36 g/dl RDW Standard Deviation 60.0 36.4-46.3 fL RDW Coefficient of Variation 17.0 11.5-14.5 % Platelet Count 159 130-400 K/uL Mean Platelet Volume 9.7 7.4-10.4 fL Sodium Level 144 136-145 mmol/L Potassium Level 4.4 3.5-5.1 mmol/L Chloride Level 112 98-107 mmol/L Carbon Dioxide Level 24 21-32 mmol/L Anion Gap 8.0 3-11 mmol/L Blood Urea Nitrogen 34 7-18 mg/dl Creatinine 1.50 0.60-1.20 mg/dl Est Creatinine Clear Calc Drug Dose 22.8 ml/min Estimated GFR () 35.9 Estimated GFR (Non- 31.0 BUN/Creatinine Ratio 22.4 10-20 Random Glucose 127 70-99 mg/dl Calcium Level 7.7 8.5-10.1 mg/dl Magnesium Level 2.2 1.8-2.4 mg/dl
[2017-01-16] MEDS ORDERED: FUROSEMIDE 40 MG TAB PO ONE (14:30)
[2017-01-16 16:11] VITALS: BP 122/77; PULSE 91; TEMP 36.6; O2SAT 100
[2017-01-16 23:22] VITALS: BP 131/76; PULSE 72; TEMP 36.3; O2SAT 100
[2017-01-17 06:09] LABS: HEMATOCRIT 29.3 % (37-47); MEAN CELL VOLUME 95.8 fL (80-100); MEAN CORPUSCULAR HGB CONC 32.4 g/dl (32-36); MEAN PLATELET VOLUME 9.9 fL (7.4-10.4); PLATELET COUNT 175 K/uL (130-400); RED BLOOD COUNT 3.06 M/uL (4.2-5.4); WHITE BLOOD COUNT 6.59 K/uL (4.8-10.8)
[2017-01-17] MEDS: LEVOTHYROXINE 88 MCG TAB PO SCH (06:38)
[2017-01-17 06:49] LABS: CALCIUM 7.8 mg/dl (8.5-10.1); CREATININE 1.4 mg/dl (0.60-1.20); POTASSIUM 4.1 mmol/L (3.5-5.1)
[2017-01-17 07:22] VITALS: BP 116/74; PULSE 97; TEMP 36.8; O2SAT 100
[2017-01-17] MEDS: MESALAMINE 400 MG CAPDR PO SCH (08:14)
[2017-01-17] MEDS: PANTOprazole SOD 40 MG TAB PO SCH (08:15)
[2017-01-17] MEDS: METOPROLOL SUCC 25MG EXT REL TAB PO SCH (08:15)
[2017-01-17] MEDS: ASPIRIN 81 MG ECTAB PO SCH (08:15)
[2017-01-17] MEDS: METHYLPREDNISOLONE 4 MG TAB PO SCH (08:36)
[2017-01-17] MEDS: FUROSEMIDE 40 MG TAB PO SCH (08:37)
[2017-01-17] MEDS: GABAPENTIN 300 MG CAP PO SCH (08:38)
--- NOTE | 2017-01-17 12:16 | Progress Note ---
Internal Med Progress Note Date of Service: Jan 17, 2017. Provider Documentation: SUBJECTIVE: The patient was seen and examined Condition improved a lot Eating normally Denies any symptoms Remains stable but generally weak and lethargic OBJECTIVE: Vital Signs-as noted below Exam: General-Alert and awake Not in any distress Eyes-normal ENT-normal Neck-Supple Lungs-minimal bibasilar crackles Otherwise clear Heart-Irregular Abdomen-Benign,no masses ,bowel sound present Extremities-Trace edema bilaterally Neuro-AA Generally very weak and lethargic-improved a lot Lab data as noted below. ASSESSMENT & PLAN: Clinically Much better Started on Mechanical soft diet and advanced as tolerated All of her oral medications have been started except Pradaxa Will advise PT/OT evaluation Social service discharge planning SEVERE SEPSIS / ISCHEMIC COLITIS Patient presented with generalized weakness, AMS and hypotension, Also had leukocytosis, lactic acidosis Stool for C diff: Negative Urine Culture: Jayde(Likely contamination, also positive in stools) MRSA Screen: Negative Blood culture: No growth to date CT abd: Likely Ischemic colitis Has been on Vancomycin and Cefepime Condition has not been getting any better ID input appreciated ,advised for a total of 3 weeks course Was deteriorating rapidly Discussed with the daughter again and again Was on Comfort care Improved subsequently WCC -normal ,Blood glucose low and Mild MEGAN Started on other medications gradually if continue to improve-discussed with the daughter No antibiotic needed anymore Check CXR tomorrow-no change compared with prior but the patient shows much improvement -no action Continue PT/OT Altered Mental Status Due to multifactorial Metabolic Encephalopathy Appreciate Neurology input Could have embolic episodes No further tests now Resolved now LOWER GI BLEED Presented with Lower GI bleeding while in ED. 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 S/P IV hydrocortisone Resumed maintenance therapy of methylprednisolone HYPOGLYCEMIA: Hold Lantus for now Monitor Blood sugar levels Hypoglycemia protocol Will need to restart Lantus HYPOKALEMIA: Resolved monitor Mag levels WNL DM II A1C: 5.0 Continue ISS, Accu checks Lantus on hold secondary to hypoglycemia HYPOTHYROIDISM TSH 5.7. Medication restarted CHRONIC EDEMA H/O chronic lymphedema. Contributing factors: Hypoalbuminemia, CHF Monitor H/O CVA: No acute issues DVT PX: Heparin SQ Pradaxa discontinued CODE STATUS FULL CODE DISPOSITION Likely to discharge in 2-3 daysfor PT/OT Vital Signs: Date Time Temp Pulse Resp B/P Pulse Ox O2 Delivery O2 Flow Rate FiO2 01/17/17 08:00 Nasal Cannula 2.0 01/17/17 07:22 36.8 97 20 116/74 100 01/17/17 00:00 Nasal Cannula 2.0 01/16/17 23:22 36.3 72 16 131/76 100 Room Air 01/16/17 20:00 Nasal Cannula 2.0 01/16/17 16:27 Nasal Cannula 2.0 01/16/17 16:11 36.6 91 18 122/77 100 Room Air Lab Results: Results Past 24 Hours Test 01/16/17 20:27 01/17/17 05:50 Range/Units Bedside Glucose 143 70-90 mg/dl White Blood Count 6.59 4.8-10.8 K/uL Red Blood Count 3.06 4.2-5.4 M/uL Hemoglobin 9.5 12.0-16.0 g/dL Hematocrit 29.3 37-47 % Mean Corpuscular Volume 95.8 80-100 fL Mean Corpuscular Hemoglobin 31.0 25-34 pg Mean Corpuscular Hemoglobin Concent 32.4 32-36 g/dl RDW Standard Deviation 59.3 36.4-46.3 fL RDW Coefficient of Variation 17.0 11.5-14.5 % Platelet Count 175 130-400 K/uL Mean Platelet Volume 9.9 7.4-10.4 fL Sodium Level 142 136-145 mmol/L Potassium Level 4.1 3.5-5.1 mmol/L Chloride Level 110 98-107 mmol/L Carbon Dioxide Level 23 21-32 mmol/L Anion Gap 9.0 3-11 mmol/L Blood Urea Nitrogen 41 7-18 mg/dl Creatinine 1.40 0.60-1.20 mg/dl Est Creatinine Clear Calc Drug Dose 24.4 ml/min Estimated GFR () 39.1 Estimated GFR (Non- 33.7 BUN/Creatinine Ratio 29.0 10-20 Random Glucose 105 70-99 mg/dl Calcium Level 7.8 8.5-10.1 mg/dl
[2017-01-17 15:30] VITALS: BP 116/74; PULSE 97; TEMP 36.8; O2SAT 100
[2017-01-17 15:41] VITALS: BP 81/46; PULSE 86; TEMP 36.3; O2SAT 100
[2017-01-17 16:00] VITALS: BP 104/70; PULSE 94
[2017-01-17 22:54] VITALS: BP 126/72; PULSE 76; TEMP 36.3; O2SAT 100
[2017-01-18] MEDS: LEVOTHYROXINE 88 MCG TAB PO SCH (05:27)
[2017-01-18 07:22] VITALS: BP 116/65; PULSE 95; TEMP 36.2; O2SAT 100
[2017-01-18] MEDS: MESALAMINE 400 MG CAPDR PO SCH (09:28)
[2017-01-18] MEDS: ASPIRIN 81 MG ECTAB PO SCH (09:28)
[2017-01-18] MEDS: METOPROLOL SUCC 25MG EXT REL TAB PO SCH (09:29)
[2017-01-18] MEDS: PANTOprazole SOD 40 MG TAB PO SCH (09:29)
[2017-01-18] MEDS: FUROSEMIDE 40 MG TAB PO SCH (09:44)
[2017-01-18] MEDS: METHYLPREDNISOLONE 4 MG TAB PO SCH (09:44)
[2017-01-18] MEDS: GABAPENTIN 300 MG CAP PO SCH (09:45)
[2017-01-18 14:44] VITALS: BP 114/73; PULSE 109; TEMP 36.7; O2SAT 100
--- NOTE | 2017-01-18 15:26 | DIAGNOSTIC IMAGING REPORT ---
ULTRASOUND VENOUS DOPPLER LWR EXT BILA CLINICAL HISTORY: Leg swelling and pain COMPARISON STUDY: No previous studies for comparison. FINDINGS: Real-time and color flow Doppler imaging were performed. Flow was seen within the femoral, popliteal and calf veins with no intraluminal thrombus demonstrated. The saphenous vein is patent. There is a minimally complex fluid collection within the medial right distal calf measuring 57 x 21 x 26 mm. IMPRESSION: 1. No evidence of lower extremity DVT. 2. Minimally complex fluid collection within the right distal calf measuring 57 x 21 x 26 mm. Electronically signed by: Shine Sellers M.D. 01/18/2017 3:24 PM Dictated Date/Time: 01/18/2017 3:22 PM
--- NOTE | 2017-01-18 16:11 | Progress Note ---
Medicine Progress Note Date & Time of Visit: Jan 18, 2017 at 15:41. Subjective Pt was seen and examined lying in bed with no distress with daughter at bed side pt said that she is feeling a little better today Complaint of left leg tenderness denies any chest pain, palpitation, dizziness and sob Objective Last 8 Hrs Date Time Temp Pulse Resp B/P Pulse Ox O2 Delivery O2 Flow Rate FiO2 01/18/17 14:44 36.7 109 18 114/73 100 Nasal Cannula 2.0 01/18/17 08:00 Nasal Cannula 2.0 Physical Exam: General- No distress Head- atraumatic Eyes- PERRL, EOMI ENT- oropharynx clear Neck- supple, no JVD Lungs- No wheezing, mild coarse BS Heart- irregular rhythm Abdomen- normal bowel sounds, soft Extremities- no calf tenderness, +edema Neuro- alert, oriented, PERRL, EOMI Skin- warm & dry Assessment & Plan Clinically Much better Started on Mechanical soft diet and advanced as tolerated All of her oral medications have been started except Pradaxa Will advise PT/OT evaluation Social service discharge planning SEVERE SEPSIS / ISCHEMIC COLITIS Patient presented with generalized weakness, AMS and hypotension, Also had leukocytosis, lactic acidosis Stool for C diff: Negative Urine Culture: Jayde(Likely contamination, also positive in stools) MRSA Screen: Negative Blood culture: No growth to date CT abd: Likely Ischemic colitis Has been on Vancomycin and Cefepime ID input appreciated ,advised for a total of 3 weeks course Was on Comfort care, that changed since pt is improving significantly Afebrile, No WBC PO Meds restarted, except Pradaxa No antibiotic needed anymore Check CXR on 01/16 showed no change compared with prior but the patient shows much improvement -no action Continue PT/OT Altered Mental Status Due to multifactorial Metabolic Encephalopathy Appreciate Neurology input Could have embolic episodes No further tests now Resolved now LOWER GI BLEED Presented with Lower GI bleeding while in ED. 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 Aspirin restarted Appreciate GI input-no scope as per GI Continue Mesalamine 800mg daily Hb was 9.5 on (01/17/17) Continue monitor H/H CHRONIC ATRIAL FIBRILLATION/CHF Now with RVR Appreciate cardiology input Metoprolol was increased to 25mg ECHO:Last ECHO: EF of 50%. 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 S/P IV hydrocortisone Continue methylprednisolone HYPOGLYCEMIA: Hold Lantus for now Monitor Blood sugar HYPOKALEMIA: Resolved DM II A1C: 5.0 Continue Accu checks Will resume insulin and start on coverage if BS started to elevated HYPOTHYROIDISM TSH 5.7. continue levothyroxine 88 mcg CHRONIC EDEMA/LEG TENDERNESS H/O chronic lymphedema. Contributing factors: Hypoalbuminemia, CHF Doppler of LE negative for DVT H/O CVA: No acute issues DVT PX: Heparin SQ Pradaxa discontinued CODE STATUS DNR DISPOSITION PT/OT Consider placement to rehab Current Inpatient Medications: Current Inpatient Medications Medications (Trade) Dose Ordered Sig/Nanda Route Start Time Stop Time Status Last Admin Dose Admin Heparin Sodium (Porcine) (Heparin 10 Unit/ ml 5 ml Flush) 5 ml PRN PRN FLUSH 01/11/17 20:00 02/10/17 19:59 01/18/17 11:05 15 ML Metoprolol Succinate (Toprol Xl Tab) 25 mg QAM PO 01/15/17 08:00 02/14/17 07:59 01/18/17 09:29 25 MG Gabapentin (Neurontin Cap) 300 mg QAM PO 01/15/17 08:00 02/14/17 07:59 01/18/17 09:45 300 MG Levothyroxine Sodium (Synthroid Tab) 88 mcg DAILYBB PO 01/16/17 06:30 02/15/17 06:29 01/18/17 05:27 88 MCG Mesalamine (Delzicol Delayed Rel Cap) 800 mg DAILY PO 01/16/17 08:00 02/15/17 07:59 01/18/17 09:28 800 MG Methylprednisolone (Medrol Tab) 4 mg DAILY PO 01/16/17 08:00 02/15/17 07:59 01/18/17 09:44 4 MG Aspirin (Ecotrin Tab) 81 mg QAM PO 01/16/17 08:00 02/15/17 07:59 01/18/17 09:28 81 MG Pantoprazole Sodium (Protonix Tab) 40 mg QAM PO 01/16/17 08:00 02/15/17 07:59 01/18/17 09:29 40 MG Furosemide (Lasix Tab) 40 mg QAM PO 01/17/17 08:00 02/16/17 07:59 01/18/17 09:44 40 MG
[2017-01-19 00:56] VITALS: BP 110/61; PULSE 89; TEMP 36.4; O2SAT 100
[2017-01-19] MEDS: LEVOTHYROXINE 88 MCG TAB PO SCH (06:00)
[2017-01-19 06:15] LABS: HEMATOCRIT 30.3 % (37-47); MEAN CELL VOLUME 96.2 fL (80-100); MEAN CORPUSCULAR HEMOGLOBIN 30.8 pg (25-34); MEAN PLATELET VOLUME 10.3 fL (7.4-10.4); PLATELET COUNT 168 K/uL (130-400); RED BLOOD COUNT 3.15 M/uL (4.2-5.4); WHITE BLOOD COUNT 8.41 K/uL (4.8-10.8)
[2017-01-19 06:51] LABS: BUN/CREATININE RATIO 38.9 (10-20); CALCIUM 7.3 mg/dl (8.5-10.1); CREATININE 1.2 mg/dl (0.60-1.20); POTASSIUM 4.1 mmol/L (3.5-5.1)
[2017-01-19 07:16] VITALS: BP 114/74; PULSE 86; TEMP 36.3; O2SAT 100
[2017-01-19] MEDS: GABAPENTIN 300 MG CAP PO SCH (08:29)
[2017-01-19] MEDS: METOPROLOL SUCC 25MG EXT REL TAB PO SCH (08:29)
[2017-01-19] MEDS: ASPIRIN 81 MG ECTAB PO SCH (08:29)
[2017-01-19] MEDS: METHYLPREDNISOLONE 4 MG TAB PO SCH (08:29)
[2017-01-19] MEDS: PANTOprazole SOD 40 MG TAB PO SCH (08:29)
[2017-01-19] MEDS: MESALAMINE 400 MG CAPDR PO SCH (08:29)
[2017-01-19] MEDS: FUROSEMIDE 40 MG TAB PO SCH (08:30)
[2017-01-19] MEDS ORDERED: ACETAMINOPHEN 325 MG TAB PO PRN (12:15)
[2017-01-19] MEDS ORDERED: TRAMADOL HCL 50 MG TAB PO PRN (15:00)
[2017-01-19 15:31] VITALS: BP 110/70; PULSE 96; TEMP 36.3; O2SAT 100
--- NOTE | 2017-01-19 16:33 | Progress Note ---
Medicine Progress Note Date & Time of Visit: Jan 19, 2017 at 16:25. Subjective Pt was seen and examined lying in bed very comfortable with daughter at bedside Pt said that she feels fine, except for some pain in her lower LLE denies any chest pain, palpitation, dizziness and SOB Objective Last 8 Hrs Date Time Temp Pulse Resp B/P Pulse Ox O2 Delivery O2 Flow Rate FiO2 01/19/17 15:31 36.3 96 20 110/70 100 Room Air Physical Exam: General- No distress Head- atraumatic Eyes- PERRL, EOMI ENT- oropharynx clear Neck- supple, no JVD Lungs- No wheezing, mild coarse BS Heart- irregular rhythm Abdomen- normal bowel sounds, soft Extremities- no calf tenderness, +edema Neuro- alert, oriented, PERRL, EOMI Skin- warm & dry Laboratory Results: Last 24 Hours Test 01/18/17 20:33 01/19/17 06:00 01/19/17 07:32 01/19/17 11:19 Bedside Glucose 145 mg/dl 105 mg/dl 110 mg/dl White Blood Count 8.41 K/uL Red Blood Count 3.15 M/uL Hemoglobin 9.7 g/dL Hematocrit 30.3 % Mean Corpuscular Volume 96.2 fL Mean Corpuscular Hemoglobin 30.8 pg Mean Corpuscular Hemoglobin Concent 32.0 g/dl RDW Standard Deviation 60.2 fL RDW Coefficient of Variation 17.0 % Platelet Count 168 K/uL Mean Platelet Volume 10.3 fL Sodium Level 141 mmol/L Potassium Level 4.1 mmol/L Chloride Level 109 mmol/L Carbon Dioxide Level 25 mmol/L Anion Gap 7.0 mmol/L Blood Urea Nitrogen 47 mg/dl Creatinine 1.20 mg/dl Est Creatinine Clear Calc Drug Dose 28.5 ml/min Estimated GFR () 47.1 Estimated GFR (Non- 40.6 BUN/Creatinine Ratio 38.9 Random Glucose 113 mg/dl Calcium Level 7.3 mg/dl Assessment & Plan SEVERE SEPSIS / ISCHEMIC COLITIS Patient presented with generalized weakness, AMS and hypotension, Also had leukocytosis, lactic acidosis Stool for C diff: Negative Urine Culture: Jayde(Likely contamination, also positive in stools) MRSA Screen: Negative Blood culture: No growth to date CT abd: Likely Ischemic colitis Has been on Vancomycin and Cefepime ID input appreciated ,advised for a total of 3 weeks course Was on Comfort care, that changed since pt is improving significantly Afebrile, No WBC PO Meds restarted, except Pradaxa No antibiotic needed anymore Check CXR on 01/16 showed no change compared with prior but the patient shows much improvement -no action Continue PT/OT Clinically improved significantly Altered Mental Status Due to multifactorial Metabolic Encephalopathy Appreciate Neurology input Could have embolic episodes No further tests now Resolved now LOWER GI BLEED Presented with Lower GI bleeding while in ED. 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 Aspirin restarted Appreciate GI input-no scope as per GI Continue Mesalamine 800mg daily stable CHRONIC ATRIAL FIBRILLATION/CHF Now with RVR Appreciate cardiology input Metoprolol was increased to 25mg ECHO:Last ECHO: EF of 50%. 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 S/P IV hydrocortisone Continue methylprednisolone HYPOGLYCEMIA: Hold Lantus for now Monitor Blood sugar HYPOKALEMIA: Resolved DM II A1C: 5.0 Continue Accu checks Will resume insulin and start on coverage if BS started to elevated HYPOTHYROIDISM TSH 5.7. continue levothyroxine 88 mcg CHRONIC EDEMA/LEG TENDERNESS H/O chronic lymphedema. Contributing factors: Hypoalbuminemia, CHF Doppler of LE negative for DVT Tramadol and Tylenol adding for pain prn H/O CVA: No acute issues DVT PX: Heparin SQ Pradaxa discontinued CODE STATUS DNR DISPOSITION PT/OT waiting for placement to rehab Current Inpatient Medications: Current Inpatient Medications Medications (Trade) Dose Ordered Sig/Nanda Route Start Time Stop Time Status Last Admin Dose Admin Heparin Sodium (Porcine) (Heparin 10 Unit/ ml 5 ml Flush) 5 ml PRN PRN FLUSH 01/11/17 20:00 02/10/17 19:59 01/19/17 06:01 15 ML Metoprolol Succinate (Toprol Xl Tab) 25 mg QAM PO 01/15/17 08:00 02/14/17 07:59 01/19/17 08:29 25 MG Gabapentin (Neurontin Cap) 300 mg QAM PO 01/15/17 08:00 02/14/17 07:59 01/19/17 08:29 300 MG Levothyroxine Sodium (Synthroid Tab) 88 mcg DAILYBB PO 01/16/17 06:30 02/15/17 06:29 01/19/17 06:00 88 MCG Mesalamine (Delzicol Delayed Rel Cap) 800 mg DAILY PO 01/16/17 08:00 02/15/17 07:59 01/19/17 08:29 800 MG Methylprednisolone (Medrol Tab) 4 mg DAILY PO 01/16/17 08:00 02/15/17 07:59 01/19/17 08:29 4 MG Aspirin (Ecotrin Tab) 81 mg QAM PO 01/16/17 08:00 02/15/17 07:59 01/19/17 08:29 81 MG Pantoprazole Sodium (Protonix Tab) 40 mg QAM PO 01/16/17 08:00 02/15/17 07:59 01/19/17 08:29 40 MG Furosemide (Lasix Tab) 40 mg QAM PO 01/17/17 08:00 02/16/17 07:59 01/19/17 08:30 40 MG Acetaminophen (Tylenol Tab) 650 mg Q8 PRN PO 01/19/17 12:15 02/18/17 12:14 01/19/17 12:35 650 MG Tramadol HCl (Ultram Tab) 50 mg Q8 PRN PO 01/19/17 15:00 02/18/17 14:59
[2017-01-19 23:52] VITALS: BP 119/75; PULSE 97; TEMP 35.9; O2SAT 100
[2017-01-20] VITALS (7 sets, daily range): BP systolic 105–141; BP diastolic 66–91; PULSE 54–99; TEMP 36.4–36.7; O2SAT 97–100
[2017-01-20] MEDS: LEVOTHYROXINE 88 MCG TAB PO SCH (06:03)
[2017-01-20] MEDS: ASPIRIN 81 MG ECTAB PO SCH (07:59)
[2017-01-20] MEDS: MESALAMINE 400 MG CAPDR PO SCH (07:59)
[2017-01-20] MEDS: METHYLPREDNISOLONE 4 MG TAB PO SCH (07:59)
[2017-01-20] MEDS: PANTOprazole SOD 40 MG TAB PO SCH (07:59)
[2017-01-20] MEDS: FUROSEMIDE 40 MG TAB PO SCH (07:59)
[2017-01-20] MEDS: GABAPENTIN 300 MG CAP PO SCH (07:59)
[2017-01-20] MEDS: METOPROLOL SUCC 25MG EXT REL TAB PO SCH (07:59)
--- NOTE | 2017-01-20 12:33 | Progress Note ---
Medicine Progress Note Date & Time of Visit: Jan 20, 2017 at 12:27. Subjective Pt was seen and examined Lying in bed with no distress with daughter at bedside Pt said that she feels much better today denies any chest pain, palpitation, dizziness and sob Objective Last 8 Hrs Date Time Temp Pulse Resp B/P Pulse Ox O2 Delivery O2 Flow Rate FiO2 01/20/17 08:00 Nasal Cannula 2.0 01/20/17 07:25 36.4 95 20 141/91 100 Room Air Physical Exam: General- No distress Head- atraumatic Eyes- PERRL, EOMI ENT- oropharynx clear Neck- supple, no JVD Lungs- No wheezing, mild coarse BS Heart- irregular rhythm Abdomen- normal bowel sounds, soft Extremities- no calf tenderness, +edema Neuro- alert, oriented, PERRL, EOMI Skin- warm & dry Laboratory Results: Last 24 Hours Test 01/19/17 16:19 01/19/17 19:58 01/20/17 07:43 01/20/17 11:22 Bedside Glucose 176 mg/dl 226 mg/dl 82 mg/dl 130 mg/dl Assessment & Plan SEVERE SEPSIS / ISCHEMIC COLITIS Patient presented with generalized weakness, AMS and hypotension, Also had leukocytosis, lactic acidosis Stool for C diff: Negative Urine Culture: Jayde(Likely contamination, also positive in stools) MRSA Screen: Negative Blood culture: No growth to date CT abd: Likely Ischemic colitis Has been on Vancomycin and Cefepime ID input appreciated ,advised for a total of 3 weeks course Was on Comfort care, that changed since pt is improving significantly Afebrile, No WBC PO Meds restarted, except Pradaxa No antibiotic needed anymore Check CXR on 01/16 showed no change compared with prior but the patient shows much improvement -no action Continue PT/OT Clinically improved significantly Altered Mental Status Due to multifactorial Metabolic Encephalopathy Appreciate Neurology input Could have embolic episodes No further tests now Resolved LOWER GI BLEED Presented with Lower GI bleeding while in ED. 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 Aspirin restarted Appreciate GI input-no scope as per GI Continue Mesalamine 800mg daily stable CHRONIC ATRIAL FIBRILLATION/CHF Now with RVR Appreciate cardiology input Metoprolol was increased to 25mg ECHO:Last ECHO: EF of 50%. No decompensation currently Continue home diuretics which were resumed today Was on Comfort care Continue metoprolol 25 mg No anticoagulant at this time due to GI bleed INFLAMMATORY ARTHRITIS ON CHRONIC STEROID THERAPY On methylprednisolone for inflammatory arthritis (? RA). S/P IV hydrocortisone Continue methylprednisolone HYPOGLYCEMIA: Hold Lantus for now Monitor Blood sugar HYPOKALEMIA: Resolved DM II A1C: 5.0 Continue Accu checks Will resume insulin and start on coverage if BS started to elevated HYPOTHYROIDISM TSH 5.7. continue levothyroxine 88 mcg CHRONIC EDEMA/LEG TENDERNESS H/O chronic lymphedema. Contributing factors: Hypoalbuminemia, CHF Doppler of LE negative for DVT Tramadol and Tylenol adding for pain prn H/O CVA: No acute issues DVT PX: Pradaxa discontinued due to GI bleed CODE STATUS DNR DISPOSITION Continue PT/OT Will discharge today to [facility] for rehab Consultants: Cardio Neuro Gastro Current Inpatient Medications: Current Inpatient Medications Medications (Trade) Dose Ordered Sig/Nanda Route Start Time Stop Time Status Last Admin Dose Admin Heparin Sodium (Porcine) (Heparin 10 Unit/ ml 5 ml Flush) 5 ml PRN PRN FLUSH 01/11/17 20:00 02/10/17 19:59 01/19/17 06:01 15 ML Metoprolol Succinate (Toprol Xl Tab) 25 mg QAM PO 01/15/17 08:00 02/14/17 07:59 01/20/17 07:59 25 MG Gabapentin (Neurontin Cap) 300 mg QAM PO 01/15/17 08:00 02/14/17 07:59 01/20/17 07:59 300 MG Levothyroxine Sodium (Synthroid Tab) 88 mcg DAILYBB PO 01/16/17 06:30 02/15/17 06:29 01/20/17 06:03 88 MCG Mesalamine (Delzicol Delayed Rel Cap) 800 mg DAILY PO 01/16/17 08:00 02/15/17 07:59 01/20/17 07:59 800 MG Methylprednisolone (Medrol Tab) 4 mg DAILY PO 01/16/17 08:00 02/15/17 07:59 01/20/17 07:59 4 MG Aspirin (Ecotrin Tab) 81 mg QAM PO 01/16/17 08:00 02/15/17 07:59 01/20/17 07:59 81 MG Pantoprazole Sodium (Protonix Tab) 40 mg QAM PO 01/16/17 08:00 02/15/17 07:59 01/20/17 07:59 40 MG Furosemide (Lasix Tab) 40 mg QAM PO 01/17/17 08:00 02/16/17 07:59 01/20/17 07:59 40 MG Acetaminophen (Tylenol Tab) 650 mg Q8 PRN PO 01/19/17 12:15 02/18/17 12:14 01/19/17 12:35 650 MG Tramadol HCl (Ultram Tab) 50 mg Q8 PRN PO 01/19/17 15:00 02/18/17 14:59
[2017-01-20] MEDS ORDERED: LSX40 PO (12:42)
[2017-01-20] MEDS ORDERED: ASPEC81 PO (12:42)
[2017-01-20] MEDS ORDERED: MAGN400T6 PO (12:42)
[2017-01-20] MEDS ORDERED: TYL325X PO (12:42)
--- NOTE | 2017-01-20 12:50 | Discharge Instructions ---
Discharge Instructions Date of Service Jan 20, 2017. Admission Reason for Admission: Gi Bleed, Severe Sepsis Discharge Discharge Diagnosis / Problem: Sepsis, GI Bleeding, Altered mental status, Chronic Afib Discharge Goals Goal(s): Decrease discomfort, Increase independence, Improve disease control Activity Recommendations Activity Limitations: resume your previous activity (as tolerated) . Instructions / Follow-Up Instructions / Follow-Up Discharge to [facility] Follow up with your physician once discharge from rehab Continue PT/OT Fall precaution Continue aspirin 81 mg Check CBC in 1 week to monitor hemoglobin BMP in 1 week to monitor electrolytes and renal function No blood thinner at this time due to GI bleed Current Hospital Diet Patient's current hospital diet: Diabetes Type 2 Diet, Regular Diet Discharge Diet Recommended Diet: Diabetes Type 2 Diet Pending Studies Studies pending at discharge: no Laboratory Results Hemoglobin A1c Test 01/07/17 05:34 Range/Units Estimated Average Glucose 97 mg/dl Hemoglobin A1c 5.0 4.5-5.6 % Medical Emergencies . Who to Call and When: Medical Emergencies: If at any time you feel your situation is an emergency, please call 911 immediately. . Non-Emergent Contact Non-Emergency issues call your: Primary Care Provider Call Non-Emergent contact if: you have a fever, your pain is not controlled, your pain is concerning you . . "Provider Documentation" section prepared by Juan Rahman. . VTE Core Measure Inpt VTE Proph given/why not?: SCD's
--- NOTE | 2017-01-20 12:57 | Discharge Summary ---
Discharge Summary Date of Service Jan 20, 2017. Discharge Summary Admission Date: Jan 06, 2017 at 14:50 Discharge Date: Jan 20, 2017 Discharge Disposition: Rehab Principal Diagnosis: Severe Sepsis Secondary Diagnoses/Problems: GI Bleed Ischemic colitis Hypokalemia Chronic Afib DM Type 2 INFLAMMATORY ARTHRITIS ON CHRONIC STEROID THERAPY Altered Mental status Hypothyroidism Procedures: CT OF THE ABDOMEN AND PELVIS WITH CONTRAST CLINICAL HISTORY: Bloody bowel movements. Evaluate for bowel ischemia. Sepsis. COMPARISON STUDY: None. TECHNIQUE: Following IV administration of 92 mL of [id number], axial images of the abdomen and pelvis were obtained from the lung bases to the proximal femurs. Images were reviewed in the axial, sagittal, and coronal planes. IV contrast was administered without complication. CT DOSE: 480.62 mGy.cm FINDINGS: Visualized portions of the lower chest demonstrate marked cardiomegaly. Bilateral pleural effusions are partially imaged. A right pleural effusion is likely small to moderate. The left pleural effusion is likely small. Associated opacities favor atelectasis. No pneumatosis, free air or portal venous gas is present. There is a small amount of abdominal and pelvic ascites. A Martini balloon is present within the bladder with gas. There is anasarca. The liver, adrenal glands and pancreas are unremarkable. There is a diverticulum of the second portion of the duodenum. The spleen is suboptimally assessed due to artifact. There is possible hypoenhancement within the anterior aspect of the spleen. There is no evidence of a bowel obstruction. There is small bowel mesenteric vessel engorgement, most evident within the right lower quadrant. There is colonic diverticulosis without evidence for acute diverticulitis. The main, left and right portal veins are patent. Multiple small bowel diverticula are also present. There is extensive atherosclerotic plaque of the abdominal aorta. There is stenosis versus occlusion of the proximal celiac axis. 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 There is suspected occlusion of the bilateral superficial femoral arteries. IMPRESSION: 1. Small amount of abdominal and pelvic ascites. Anasarca. Small to moderate right and small left pleural effusions with associated opacities which favor atelectasis. 2. Small bowel mesentery vessel engorgement and edema, most evident within the right lower quadrant. No pneumatosis, free air or portal venous gas. No definite bowel wall thickening. This could reflect a nonspecific enteritis and bowel ischemia is within the differential. Close clinical monitoring is recommended. Discussed with Dr. Adkins at time of dictation. 3. Extensive atherosclerotic plaque of the abdominal aorta with severe stenosis versus occlusion of the proximal celiac axis, severe stenosis of the proximal SMA, severe stenosis of the bilateral renal arteries and suspected occlusion of the bilateral superficial femoral arteries. 4. Possible hypoenhancement of the anterior aspect of the spleen. This is probably artifactual although a splenic infarct could appear similar. Electronically signed by: Mayur Mack M.D. 01/06/2017 8:26 PM Dictated Date/Time: 01/06/2017 7:[address] SCAN OF THE BRAIN WITHOUT IV CONTRAST CLINICAL HISTORY: Generalized weakness. Unresponsive. COMPARISON STUDY: No priors. TECHNIQUE: Unenhanced axial CT scan of the brain is performed from the vertex to the skull base. CT DOSE: 823.94 mGycm FINDINGS: Brain parenchyma: There are age-related involutional changes noting moderate patchy subcortical and periventricular microangiopathic change. There is no hemorrhage, mass effect, or evidence of acute territorial ischemia by CT criteria. A chronic lacunar infarct is identified in the right thalamus. Davison-white matter is preserved. No extra-axial fluid collection is seen. Ventricles, sulci, cisterns: Prominent secondary to involutional change. Intracranial vasculature: There is an atherosclerotic calcification of the cavernous carotid and vertebral arteries. Calvarium: Unremarkable. Sinuses and mastoids: The visualized paranasal sinuses are clear. The mastoid air cells are well pneumatized. Orbits: The bony orbits are grossly intact. There are bilateral ocular lens implants. IMPRESSION: Senescent changes as above with no hemorrhage, mass effect, or evidence of acute territorial ischemia by CT criteria. Electronically signed by: Dany Llanos M.D. 01/06/2017 12:30 PM Dictated Date/Time: 01/06/2017 12:[address] NON[address]AST CT DOSE: 823.94 mGycm HISTORY: Altered mental status, H/O Afib. R/O CVA TECHNIQUE: Multiaxial CT images of the head were performed without the use of intravenous contrast. Automated exposure control was utilized for this study. Comparison: Head CT 01/06/2017. Findings: The paranasal sinuses and mastoid air cells are clear. The calvarium and skull base are intact. There is no mass, hematoma, midline shift, acute infarct. White matter hypodensity is nonspecific but suggestive of microvascular ischemic change. The ventricles and sulci demonstrate moderate age-related involutional changes. Old bilateral thalamic lacunar infarcts. Impression: No significant change compared to the prior study. No acute intracranial abnormality. Electronically signed by: Tim Webster M.D. 01/10/2017 3:30 PM Dictated Date/Time: 01/10/2017 3:25 PM ULTRASOUND VENOUS DOPPLER LWR EXT BILA CLINICAL HISTORY: Leg swelling and pain COMPARISON STUDY: No previous studies for comparison. FINDINGS: Real-time and color flow Doppler imaging were performed. Flow was seen within the femoral, popliteal and calf veins with no intraluminal thrombus demonstrated. The saphenous vein is patent. There is a minimally complex fluid collection within the medial right distal calf measuring 57 x 21 x 26 mm. IMPRESSION: 1. No evidence of lower extremity DVT. 2. Minimally complex fluid collection within the right distal calf measuring 57 x 21 x 26 mm. Electronically signed by: Shine Sellers M.D. 01/18/2017 3:24 PM Consultations: Cardio Neuro Gastro Medication Reconciliation New Medications: Acetaminophen (Tylenol) 325 Mg Tab 650 MG PO Q8 PRN for pain for 10 Days, #60 TAB Aspirin (Aspirin EC Low Dose) 81 Mg Ectab 81 MG PO QAM for 30 Days Furosemide (Furosemide) 40 Mg Tab 40 MG PO QAM for 30 Days, #30 TAB Changed Medications: Magnesium Oxide (Mag-Ox) 400 Mg Tab 400 MG PO DAILY for 30 Days, #30 TAB (Changed from: TID; Removed Instructions) Continued Medications: Cholecalciferol (Vitamin D3) 1,000 Unit Tab 1 TAB PO DAILY, TAB Cyanocobalamin (Vitamin B-12) 500 Mcg Tab 500 MCG PO QAM, TAB Dexlansoprazole (Dexilant) 60 Mg Cap 1 TAB PO QAM 0900 Dimethicone & Incontinent Enedelia (Comfort Clean/Comfort Marielena) 1 Mis Mis 1 DOSE TOP TID Ferrous Sulfate (Ferrous Sulfate) 325 Mg Tab 1 TAB PO BID 4645-6664 Gabapentin (Neurontin) 300 Mg Cap 300 MG PO QAM, CAP 0900 Levothyroxine Sodium (Synthroid) 88 Mcg Tab 88 MCG PO DAILYBB, TAB 0630 Mesalamine (Mesalamine Dr) 800 Mg Tab 1 TAB PO QAM 0900 Methylprednisolone (Methylprednisolone) 4 Mg Tab 1 TAB PO QAM Metoprolol Succinate (Metoprolol Succinate ER) 25 Mg Tabcr 1 TAB PO QAM 0900 Potassium Chloride Microencaps (Potassium Chloride Er) 20 Meq Tab 1 TAB PO QAM, TAB Potassium Ext Rel (Klor-Con) 20 Meq Tabcr 20 MEQ PO QAM, TAB Sodium Chloride Flush (Normal Saline Flush) 0.9 % Inj 20 ML FLUSH [id number] Discontinued Medications: Bumetanide (Bumex) 1 Mg Tab 1 MG PO QAM, TAB 0900 Ciprofloxacin Hcl (Cipro) 500 Mg Tab 500 MG PO Q12H, TAB Ciprofloxacin In D5w (Cipro I.v.-In D5w) 1 Inj Inj 400 MG IV Q12 Dabigatran Etexilate Mesylate (Pradaxa) 150 Mg Cap 150 MG PO BID, CAP 3026-1817 Heparin Sodium (Porcine) Lock (Heparin Lock Flush) 10 Unit/Ml Inj 1 DOSE FLUSH [id number] Vancomycin HCl in Sodium Chlor (Vancomycin Hydrochloride/ 1-0.9 gm/250Ml-%) 1 Inj Inj 1 GM IV DAILY STARTED 01-05-17. INFUSE OVER 90MIN DAILY FOR 8DAYS. Admission Information HPI (per Admitting provider): 86 YO female followed by Dr. Lara for primary care. 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 Has had multiple skin tears attributed to chronic steroid therapy with associated episodes of cellulitis. Hospitalized at [facility] on 12/28/16 for cellulitis and septic olecranon bursitis LUE. Olecranon bursectomy performed 12/31/[address] Callahan. Cultures from surgical procedure grew: Acinetobacter baumannii sensitive to 3rd generation cephalosporins, quinolones, aminoglycosides, carbapenems coag neg Staph sensitive to vancomycin, daptomycin, linezolid; resistant to quinolones, erythromycin, oxacillin, clindamycin Strep sp sensitive to vancomycin, penicillin, tetracycline; resistant to clindamycin, quinolones, erythromycin Transferred to [facility] for IV meds (ciprofloxacin and vancomycin) and PT on 01/03/17. [place] fairly well on 01/04. Daughter thought that she looked tired last evening. This morning she was found be be very weak and minimally responsive. Systolic BP was reportedly 70 when paramedics arrived. Fluid resuscitation was initiated by EMS. She was brought to the ED for evaluation. Patient denies fever, but has been chilled. [place] dyspneic this morning. She has a nonproductive cough. No chest pain. No nausea or vomiting. Daughter noted some abdominal bloating last night. Patient denies abdominal pain. Had a loose stool this morning without apparent melena or hematochezia. Had Martini catheter in [facility] that was discontinued by discharge. No dysuria or hematuria. Right IJ catheter placed at [facility] which was maintained for IV antibiotic therapy at [facility]. BP's fluctuated in ED, but improved with fluid resuscitation. Hydrocortisone 100 mg IV administered in ED in light of chronic steroid therapy. 2 episodes of hematochezia in ED- fresh blood with some clots, about 100 mls each time. History of diverticulosis, but no history of diverticular bleed. History of diverticulitis without apparent recent flares. . Physical Exam (per Admitting): General Appearance: + severe distress, + thin Head: normocephalic, atraumatic Eyes: normal inspection, PERRL, EOMI, sclerae normal, + pertinent finding ( conjunctivae pale) ENT: normal ENT inspection, hearing grossly normal, + pertinent finding ( upper dentures) Neck: supple, no adenopathy, thyroid normal, trachea midline, + JVD, + pertinent finding (right IJ catheter) Respiratory/Chest: no respiratory distress, no accessory muscle use, + pertinent finding (few basilar rales) Cardiovascular: + pertinent finding (irregular, tachycardic, II/ systolic murmur at base, II/ systolic murmur at apex, no gallop appreciated) Abdomen/GI: + pertinent finding (quiet bowel sounds, slightly distended, mild right-sided tenderness without rebound or guarding, no palpable masses; fresh blood per rectum) Extremities/Musculoskelatal: + pertinent finding (2+ pretibial edema; no calf tenderness; pedal pulses diminished; capillary refill toes about 1 sec) Neurologic/Psych: countersinker II-XII nml as tested (PERRL, EOMI, no facial palsy), + disoriented (mild confusion), + pertinent finding (shantellelized weakness; plantar reflexes downgoing) Skin: + pertinent finding (cool extremities; shallow skin ulcers; numerous ecchymoses and purpura; incision left elbow with sutures) Lymphatic: + pertinent finding (no cervical adenopathy) Hospital Course SEVERE SEPSIS / ISCHEMIC COLITIS Patient presented with generalized weakness, AMS and hypotension, Also had leukocytosis, lactic acidosis Stool for C diff: Negative Urine Culture: Jayde(Likely contamination, also positive in stools) MRSA Screen: Negative Blood culture: No growth to date CT abd: Likely Ischemic colitis Has been on Vancomycin and Cefepime ID input appreciated ,advised for a total of 3 weeks course Was on Comfort care, that changed since pt is improving significantly Afebrile, No WBC PO Meds restarted, except Pradaxa No antibiotic needed anymore Check CXR on 01/16 showed no change compared with prior but the patient shows much improvement -no action Continue PT/OT Clinically improved significantly Altered Mental Status Due to multifactorial Metabolic Encephalopathy Appreciate Neurology input Could have embolic episodes No further tests now Resolved LOWER GI BLEED Presented with Lower GI bleeding while in ED. 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 Aspirin restarted Appreciate GI input-no scope as per GI Continue Mesalamine 800mg daily stable CHRONIC ATRIAL FIBRILLATION/CHF Now with RVR Appreciate cardiology input Metoprolol was increased to 25mg ECHO:Last ECHO: EF of 50%. No decompensation currently Continue home diuretics which were resumed today Was on Comfort care Continue metoprolol 25 mg No anticoagulant at this time due to GI bleed INFLAMMATORY ARTHRITIS ON CHRONIC STEROID THERAPY On methylprednisolone for inflammatory arthritis (? RA). S/P IV hydrocortisone Continue methylprednisolone HYPOGLYCEMIA: Hold Lantus for now Monitor Blood sugar HYPOKALEMIA: Resolved DM II A1C: 5.0 Continue Accu checks Will resume insulin and start on coverage if BS started to elevated HYPOTHYROIDISM TSH 5.7. continue levothyroxine 88 mcg CHRONIC EDEMA/LEG TENDERNESS H/O chronic lymphedema. Contributing factors: Hypoalbuminemia, CHF Doppler of LE negative for DVT Tramadol and Tylenol adding for pain prn H/O CVA: No acute issues DVT PX: Pradaxa discontinued due to GI bleed CODE STATUS DNR DISPOSITION Continue PT/OT Will discharge today to [facility] for rehab Total time spent on discharge = 45 minutes This includes examination of the patient, discharge planning, medication reconciliation, and communication with other providers. Discharge Instructions Discharge Instructions Date of Service Jan 20, 2017. Admission Reason for Admission: Gi Bleed, Severe Sepsis Discharge Discharge Diagnosis / Problem: Sepsis, GI Bleeding, Altered mental status, Chronic Afib Discharge Goals Goal(s): Decrease discomfort, Increase independence, Improve disease control Activity Recommendations Activity Limitations: resume your previous activity (as tolerated) . Instructions / Follow-Up Instructions / Follow-Up Discharge to [facility] Follow up with your physician once discharge from rehab Continue PT/OT Fall precaution Continue aspirin 81 mg Check CBC in 1 week to monitor hemoglobin BMP in 1 week to monitor electrolytes and renal function No blood thinner at this time due to GI bleed Current Hospital Diet Patient's current hospital diet: Diabetes Type 2 Diet, Regular Diet Discharge Diet Recommended Diet: Diabetes Type 2 Diet Pending Studies Studies pending at discharge: no Laboratory Results Hemoglobin A1c Test 01/07/17 05:34 Range/Units Estimated Average Glucose 97 mg/dl Hemoglobin A1c 5.0 4.5-5.6 % Medical Emergencies . Who to Call and When: Medical Emergencies: If at any time you feel your situation is an emergency, please call 911 immediately. . Non-Emergent Contact Non-Emergency issues call your: Primary Care Provider Call Non-Emergent contact if: you have a fever, your pain is not controlled, your pain is co Additional Copies To [facility], Mindy Lara, Pj Mann D.O.
== END 2017-01-20 16:20 | DRG 871 ==
LOC: ENRESERVDT → ENRESERVTM → C.EDB 10:47 → C.MSICU 14:50 → C.2T 01-07 14:44 → EDBEDREQ 01-07 16:59 → C.4E 01-11 13:56
PROVIDERS: ADMIT Hospitalist; ATTEND Internal Medicine
DX: A41.9 Sepsis, unspecified organism (principal); R65.21 Severe sepsis with septic shock; G93.41 Metabolic encephalopathy; K57.31 Diverticulosis of large intestine without perforation or abscess with bleeding; K51.90 Ulcerative colitis, unspecified, without complications; I48.1 Persistent atrial fibrillation; E87.2 Acidosis; D62 Acute posthemorrhagic anemia; N17.9 Acute kidney failure, unspecified; K55.9 Vascular disorder of intestine, unspecified; Z79.52 Long term (current) use of systemic steroids; M19.90 Unspecified osteoarthritis, unspecified site; J45.909 Unspecified asthma, uncomplicated; I25.10 Atherosclerotic heart disease of native coronary artery without angina pectoris; K21.9 Gastro-esophageal reflux disease without esophagitis; Z86.73 Personal history of transient ischemic attack (TIA), and cerebral infarction without residual deficits; E78.5 Hyperlipidemia, unspecified; I10 Essential (primary) hypertension; E03.9 Hypothyroidism, unspecified; Z90.49 Acquired absence of other specified parts of digestive tract; Z98.49 Cataract extraction status, unspecified eye; Z90.710 Acquired absence of both cervix and uterus; Z96.651 Presence of right artificial knee joint; I35.0 Nonrheumatic aortic (valve) stenosis; E11.65 Type 2 diabetes mellitus with hyperglycemia; Z95.1 Presence of aortocoronary bypass graft; E86.0 Dehydration; E87.6 Hypokalemia; Z66 Do not resuscitate